=== PATIENT | female | born 1960 | race Caucasian/White ===

== ENCOUNTER 2016-11-14 12:19 | Emergency (ER) | payer BC ==
[2016-11-14] MEDS ORDERED: ONDANSETRON 4 MG/2 ML VIAL IVP STA (14:49)
[2016-11-14] MEDS ORDERED: SODIUM CHLORIDE 0.9% 1,000 ML IV STA (14:49)
[2016-11-14] MEDS ORDERED: SODIUM CHLORIDE 0.9% 500 ML IV STA (14:49)
[2016-11-14] MEDS ORDERED: RX INFO: IV CONTRAST WAS GIVEN 1 EACH MISC MISCELLANE PRN (14:58)
[2016-11-14 15:14] LABS: Basophils # (A) 0.1 k/uL (0-0.2); Basophils % (A) 1 %; CH 28.2; CHCM 34.2; Eosinophils # (A) 0.3 k/uL (0-0.7); Eosinophils % (A) 4 %; HCT 49.8 % (34.0-46.0); HDW 3.19; HGB 16.9 gm/dL (11.4-16.0); Luc # (Auto) 0.23; Luc % (Auto) 3; Lymphocytes # (A) 1.7 k/uL (1.0-4.8); Lymphocytes % (A) 26 %; MCH 28.1 pg (25.0-35.0); MCV 82.6 fL (80.0-100.0); Mean Platelet Volume 7.5; Monocytes # (A) 0.5 k/uL (0-1.0); Monocytes % (A) 7 %; Neutrophils % (A) 59 %; RBC 6.03 m/uL (3.80-5.40); RDW 15.1 % (11.5-15.5); WBC 6.8 k/uL (3.8-10.6); WBC (Perox) 6.48
[2016-11-14 15:15] VITALS: RESP 18
--- NOTE | 2016-11-14 15:38 | ED ---
Nausea/Vomiting/Diarrhea HPI - General Chief complaint: Nausea/Vomiting/Diarrhea Stated complaint: Abd Pain Time Seen by Provider: 11/14/16 14:48 Source: patient, RN notes reviewed Mode of arrival: ambulatory Limitations: no limitations - History of Present Illness Initial comments: 56-year-old female presents emergency Department with chief complaint of diarrhea, nausea and abdominal pain for last 4 days. Patient states progressively getting worse. She states initially when she started she does, felt like she at stomach and she had with bathroom with no changes but now she states that she's having feel episodes of diarrhea daily. States it is worse when she is. States she has diffuse abdominal pain but there is moderate left lower quadrant abdominal pain. Patient denies fever, chills no history of abdominal surgeries other than a . Denies any sick contacts. Patient denies any flank pain no dysuria no hematuria. - Related Data Home Medications Medication Instructions Recorded Confirmed Dapagliflozin/Metformin HCl 1 tab PO DAILY 11/14/16 11/14/16 [Xigduo Xr 10 mg-1,000 mg Tab] Ergocalciferol [Vitamin D2] 50,000 unit PO FR 11/14/16 11/14/16 Levothyroxine Sodium [Synthroid] 50 mcg PO DAILY 11/14/16 11/14/16 Loratadine [Claritin] 10 mg PO DAILY 11/14/16 11/14/16 Allergies Allergy/AdvReac Type Severity Reaction Status Date / Time No Known Allergies Allergy Verified 11/14/16 16:20 Review of Systems ROS Statement: Those systems with pertinent positive or pertinent negative responses have been documented in the HPI. ROS Other: All systems not noted in ROS Statement are negative. Past Medical History Past Medical History: Diabetes Mellitus Additional Past Medical History / Comment(s): thyroid issues History of Any Multi-Drug Resistant Organisms: None Reported Past Surgical History: Section Additional Past Surgical History / Comment(s): cataract, Hand Past Psychological History: No Psychological Hx Reported Smoking Status: Current every day smoker Past Alcohol Use History: None Reported Past Drug Use History: None Reported General Exam Limitations: no limitations General appearance: alert, in no apparent distress Head exam: Present: atraumatic, normocephalic, normal inspection Respiratory exam: Present: normal lung sounds bilaterally. Absent: respiratory distress, wheezes, rales, rhonchi, stridor Cardiovascular Exam: Present: regular rate, normal rhythm, normal heart sounds. Absent: systolic murmur, diastolic murmur, rubs, gallop, clicks GI/Abdominal exam: Present: soft, tenderness (Mild diffuse of mild left lower quadrant tenderness), normal bowel sounds. Absent: distended, guarding, rebound , rigid Back exam: Absent: CVA tenderness (R), CVA tenderness (L) Neurological exam: Present: alert Skin exam: Present: warm, dry, intact, normal color. Absent: rash Course Vital Signs 11/14/16 11/14/16 12:51 15:14 Temperature 99.1 F 97.5 F L Pulse Rate 113 H 84 Respiratory 20 18 Rate Blood Pressure 162/95 137/93 O2 Sat by Pulse 95 100 Oximetry Medical Decision Making - Medical Decision Making 56-year-old female presented for diarrhea, abdominal discomfort. Patient appears to have enteritis patient CT. Patient has bilateral nephrolithiasis and reactive lymph nodes noted. Patient's lab work essentially unremarkable. Patient be discharged. Return parameters were discussed. - Lab Data Result diagrams: 11/14/16 15:00 11/14/16 15:00 Lab Results 11/14/16 11/14/16 11/14/16 Range/Units 15:00 15:00 16:18 WBC 6.8 (3.8-10.6) k/uL RBC 6.03 H (3.80-5.40) m/uL Hgb 16.9 H (11.4-16.0) gm/dL Hct 49.8 H (34.0-46.0) % MCV 82.6 (80.0-100.0) fL MCH 28.1 (25.0-35.0) pg MCHC 34.0 (31.0-37.0) g/dL RDW 15.1 (11.5-15.5) % Plt Count 257 (150-450) k/uL Neutrophils % 59 % Lymphocytes % 26 % Monocytes % 7 % Eosinophils % 4 % Basophils % 1 % Neutrophils # 4.0 (1.3-7.7) k/uL Lymphocytes # 1.7 (1.0-4.8) k/uL Monocytes # 0.5 (0-1.0) k/uL Eosinophils # 0.3 (0-0.7) k/uL Basophils # 0.1 (0-0.2) k/uL Sodium 142 (137-145) mmol/L Potassium 3.8 (3.5-5.1) mmol/L Chloride 108 H (98-107) mmol/L Carbon Dioxide 21 L (22-30) mmol/L Anion Gap 13 mmol/L BUN 19 H (7-17) mg/dL Creatinine 0.90 (0.52-1.04) mg/dL Est GFR (MDRD) Af Amer >60 (>60 ml/min/1.73 sqM) Est GFR (MDRD) Non-Af >60 (>60 ml/min/1.73 sqM) Glucose 108 H (74-99) mg/dL Calcium 9.4 (8.4-10.2) mg/dL Total Bilirubin 0.7 (0.2-1.3) mg/dL AST 44 H (14-36) U/L ALT 55 H (9-52) U/L Alkaline Phosphatase 114 (38-126) U/L Total Protein 7.2 (6.3-8.2) g/dL Albumin 4.3 (3.5-5.0) g/dL Amylase 58 (30-110) U/L Lipase 101 (23-300) U/L Urine Color Yellow Urine Appearance Clear (Clear) Urine pH 5.5 (5.0-8.0) Urine Protein 1+ H (Negative) Urine Glucose (UA) Negative (Negative) Urine Ketones Negative (Negative) Urine Blood Negative (Negative) Urine Nitrite Negative (Negative) Urine Bilirubin Negative (Negative) Urine Urobilinogen <2.0 (<2.0) mg/dL Ur Leukocyte Esterase Negative (Negative) Urine RBC 1 (0-5) /hpf Urine WBC 2 (0-5) /hpf Ur Squamous Epith Cells 1 (0-4) /hpf Urine Bacteria Rare H (None) /hpf Urine Mucus Occasional H (None) /hpf Acetone, Qual Negative (Negative) Disposition Clinical Impression: Enteritis Disposition: HOME SELF-CARE Condition: Stable Instructions: Enteritis (ED) Additional Instructions: Please return to the Emergency Department if symptoms worsen or any other concerns. Referrals: Steve Rivas MD [Primary Care Provider] - 1-2 days Time of Disposition: 16:43
[2016-11-14 15:48] LABS: ALT 55 U/L (9-52); AST 44 U/L (14-36); Alkaline Phosphatase 114 U/L (38-126); Amylase 58 U/L (30-110); Anion Gap 13 mmol/L; Blood Urea Nitrogen 19 mg/dL (7-17); Calcium 9.4 mg/dL (8.4-10.2); Carbon Dioxide 21 mmol/L (22-30); Chloride 108 mmol/L (98-107); Glucose 108 mg/dL (74-99); Non-African American GFR(MDRD) >60 (>60 ml/min/1.73 sqM); Potassium 3.8 mmol/L (3.5-5.1); Sodium 142 mmol/L (137-145); Total Bilirubin 0.7 mg/dL (0.2-1.3); Total Protein 7.2 g/dL (6.3-8.2)
[2016-11-14 16:31] LABS: Appearance,Urine Clear (Clear); Bacteria,Urine Rare /hpf; Bilirubin,Urine Negative (Negative); Glucose,Urine (UA) Negative (Negative); Ketones,Urine Negative (Negative); Leukocyte Esterase,Urine Negative (Negative); Mucus,Urine Occasional /hpf; Nitrite,Urine Negative (Negative); PH, Urine 5.5 (5.0-8.0); Particle Count 3254; Protein,Urine 1+ (Negative); RBC,Urine 1 /hpf (0-5); Squamous Epithelial Cell,Urine 1 /hpf (0-4); UA Billing (MACRO vs. MICRO) MICRO; Urobilinogen,Urine <2.0 mg/dL (<2.0); WBC,Urine 2 /hpf (0-5)
--- NOTE | 2016-11-14 16:38 | CT ---
EXAMINATION TYPE: CT abdomen pelvis w con DATE OF EXAM: 11/14/2016 4:11 PM COMPARISON: NONE HISTORY: 56-year-old female complains of abdominal pain and diarrhea x5 days. TECHNIQUE: Contiguous axial scanning of the abdomen and pelvis following administration of 100 ml Omn ipaque 300 IV contrast. Delayed images through the kidneys and coronal/sagittal reconstructions perf ormed. CT DLP: 931.5 mGycm Automated exposure control for dose reduction was used. FINDINGS: The heart is normal size without pericardial effusion. Strandy atelectasis at the right base without pleural effusion. Liver enlarged measuring 19.4 cm craniocaudal. There appears to be low attenuation suggesting fatty i nfiltration. Portal venous system is patent. No biliary ductal dilatation. Gallbladder, adrenal glands, spleen, and pancreas within normal limits. 5 mm nonobstructive calculus upper to mid pole right kidney and 2 mm nonobstructive calculus lower po le left kidney. There is also an exophytic 6.7 cm cyst from the left lower pole. Moderate atherosclerotic calcifications within the abdominal aorta and iliac arteries. A few scattered borderline to mildly enlarged mesenteric lymph nodes are present measuring up to 7 mm , coronal image 40. Some scattered prominent fluid within lower abdominal and pelvic small bowel loop s and liquid stool within the colon. Normal appendix. No pericolonic inflammatory change. Bladder partially distended. Uterus and ovaries are visualized. No abnormal fluid collection in the p isabela or pelvic lymphadenopathy. Bones: Degenerative changes of both hips. No osseous destructive process. IMPRESSION: 1. PROMINENT FLUID-FILLED SMALL BOWEL LOOPS IN THE LOWER ABDOMEN AND PELVIS WITH LIQUID STOOL THROUGH OUT THE COLON. CORRELATE FOR ENTERITIS. 2. SCATTERED NONENLARGED AND MILDLY ENLARGED MESENTERIC LYMPH NODES MEASURE UP TO 7 MM AND ARE LIKELY REACTIVE. 3. BILATERAL NEPHROLITHIASIS MEASURING UP TO 5 MM. ALSO, LARGE 6.7 CM CYST LOWER POLE LEFT KIDNEY. 4. HEPATOMEGALY AND SUSPECTED HEPATIC STEATOSIS.
[2016-11-14 16:47] LABS: Specific Gravity,Urine 1.049 (1.001-1.035)
[2016-11-14 16:58] VITALS: BP 141/76; PULSE 69; TEMP 98
== END 2016-11-14 17:00 | disposition home or self-care (01) ==
LOC: EC 12:19
DX: K52.9 Noninfective gastroenteritis and colitis, unspecified (principal); N20.0 Calculus of kidney; R11.0 Nausea; E11.9 Type 2 diabetes mellitus without complications; F17.200 Nicotine dependence, unspecified, uncomplicated; Z79.84 Long term (current) use of oral hypoglycemic drugs; Z79.899 Other long term (current) drug therapy; Z86.39 Personal history of other endocrine, nutritional and metabolic disease
CPT/HCPCS: 99284; 96374; 96361; 36415; 80053; 82150; 82009; 83690; 85025; 81001; 74177; J2405; Q9967

== ENCOUNTER → 2020-03-21 | Outpatient (CLI) | payer BC ==
--- NOTE | 2020-03-21 22:15 | MR ---
EXAMINATION TYPE: MR fanine/brianneine wo con DATE OF EXAM: 03/21/2020 COMPARISON: None HISTORY: Chronic neck and mid back pain CONTRAST: Performed utilizing 0 mL intravenous Gadavist gadolinium contrast. TECHNIQUE: Multiplanar multiecho imaging on a 3.0 Margi magnet is performed through the cervical spin e. FINDINGS: The craniovertebral junction is normal. Vertebral body alignment is normal. C7-T1: No focal disc herniation or significant disc bulge is evident. No spinal canal stenosis or n eural foraminal stenosis is present. C6-7: There is a moderate left paracentral disc herniation with moderate anterior thecal sac compress ion. Cord contact and some cord deformity is evident. No signal abnormality is evident.. C5-6: No focal disc herniation or significant disc bulge is evident. No spinal canal stenosis or martina ral foraminal stenosis is present. C4-5: No focal disc herniation or significant disc bulge is evident. No spinal canal stenosis or martina ral foraminal stenosis is present. C3-4: No focal disc herniation or significant disc bulge is evident. No spinal canal stenosis or martina ral foraminal stenosis is present. C2-3: No focal disc herniation or significant disc bulge is evident. No spinal canal stenosis or martina ral foraminal stenosis is present. IMPRESSIONS: 1. Left paracentral disc herniation with cord contact C6-7. EXAMINATION TYPE: MR casey/marta wo con DATE OF EXAM: 03/21/2020 COMPARISON: None HISTORY: Chronic neck and mid back pain CONTRAST: Performed utilizing 0 mL intravenous Gadavist gadolinium contrast. TECHNIQUE: Multiplanar, multiecho imaging on a 3.0 Margi magnet is performed through the thoracic spi ne. Spinal cord maintains normal signal through its visualized course. There is exaggeration of thoracic kyphosis centered at approximately T6-T7. Vertebral body heights are preserved. Disc heights are preserved. There is disc desiccation present. T6-7: Right paracentral disc bulge has moderate anterior thecal sac compression. Cord deformity is pr esent. Cord contact is not identified. No spinal canal stenosis is present. T7-8: There is a moderate size central disc herniation with moderate anterior thecal sac compression. Cord deformity is present although no cord contact is evident at this time. No AP spinal canal steno sis present. T12-L1: Small central protrusion is present with mild anterior thecal sac compression. No cord contac t is evident. No spinal canal stenosis is evident. IMPRESSIONS: 1. Moderate size central disc herniation T7-8 with cord deformity. 2. Right paracentral disc bulging C6-7 with mild anterior thecal sac compression and mild cord deform ity
== END | disposition home or self-care (01) ==
LOC: RADMRIMAIN 19:27
PROVIDERS: ATTEND Family Medicine
DX: M50.223 Other cervical disc displacement at C6-C7 level (principal); M51.24 Other intervertebral disc displacement, thoracic region; G95.29 Other cord compression
CPT/HCPCS: 72141; 72146

== ENCOUNTER → 2023-02-06 | Outpatient (CLI) | payer BC ==
--- NOTE | 2023-02-08 16:33 | MR ---
EXAMINATION TYPE: MR lspine/sacrum wo con DATE OF EXAM: 02/06/2023 3:26 PM COMPARISON: CT 11/14/2016. CLINICAL INDICATION: Female, 62 years old with history of M54.50 M54.16; Severe low back pain and ti ngling into legs to feet, mostly left side TECHNIQUE: Multi planar, multi sequence imaging was performed utilizing: T1-weighted, T2-weighted, a nd turbo inversion recovery imaging of the lumbar spine and sacrum. IV Contrast: cc . None. FINDINGS: Alignment: The lumbar vertebral bodies have preserved heights and alignment. Cord: The conus medullaris and the distal spinal cord appear unremarkable with regards to their signa l intensity and morphology. Bones/Discs: Bone signal is within normal limits. No abnormal bony edema on inversion recovery sequen laly. Multilevel disc degenerative is noted and most pronounced at the . Intervertebral disc signal is maintained. T12-L1: No evidence of significant spinal canal stenosis or neural foraminal stenosis. L1-L2: No evidence of significant spinal canal stenosis or neural foraminal stenosis. L2-L3: Disc bulge and facet joint arthropathy result in mild spinal canal and mild bilateral neural f oraminal stenosis. L3-L4: Disc bulge and facet joint arthropathy result in mild spinal canal and mild bilateral neural f oraminal stenosis. L4-L5: Disc bulge and facet joint arthropathy result in mild spinal canal and mild bilateral neural f oraminal stenosis. L5-S1: Left foraminal disc protrusion without significant spinal canal stenosis. This closely approxi mates the exiting S1-S2 nerve (series 401 image 7). Facet joint arthropathy present with bilateral ne ural foraminal stenosis. Osteophyte in the extraforaminal region closely approximates and displaces t he left exiting nerve series 701 image 3. Sacrum: No abnormal bony signal involving the sacrum. No abnormal inversion recovery sequence signal. Minimal degeneration changes of the bilateral sacroiliac joints. No significant spinal canal or neural foraminal stenosis in the remainder of the visualized levels. Other findings: Possible Lynette duct cyst partially visualized anterior abdominal wall measuring 15 x 9 mm. scar thought to be present in the anterior lower uterine segment. Partially visual ized left renal cyst which is slightly complex. Findings similar to prior in 2017. IMPRESSION: 1. L5-S1 left foraminal disc protrusion which closely approximates the exiting S1/S2 nerve and could correlate with patient's symptoms. 2. L5-S1 left foraminal osteophyte displaces the exiting L5-S1 nerve. 3. Mild sacroiliac joint degeneration changes. No evidence for fracture. 4. Possible Lynette duct cyst partially visualized anterior abdominal wall measuring 15 x 9 mm.
== END | disposition home or self-care (01) ==
LOC: RADMRIMAIN 14:20
PROVIDERS: ATTEND Family Medicine
DX: M51.16 Intervertebral disc disorders with radiculopathy, lumbar region (principal); M53.3 Sacrococcygeal disorders, not elsewhere classified; M25.78 Osteophyte, vertebrae
CPT/HCPCS: 72148; 72195

== ENCOUNTER 2023-05-04 11:55 | Inpatient (IN) | payer BC ==
[2023-05-04 16:55] LABS: Glucose,Whole Blood 118 mg/dL (70-110)
[2023-05-04 17:37] LABS: Basophils % (A) 0 %; Eosinophils # (A) 0.1 k/uL (0-0.7); Eosinophils % (A) 2 %; HCT 39.2 % (34.0-46.0); HGB 13.1 gm/dL (11.4-16.0); Lymphocytes # (A) 1.9 k/uL (1.0-4.8); Lymphocytes % (A) 23 %; MCH 29.7 pg (25.0-35.0); MCHC 33.5 g/dL (31.0-37.0); MCV 88.5 fL (80.0-100.0); Mean Platelet Volume 8.6; Monocytes # (A) 0.4 k/uL (0-1.0); Monocytes % (A) 5 %; Neutrophils # (A) 5.7 k/uL (1.3-7.7); Neutrophils % (A) 69 %; Platelet Count 201 k/uL (150-450); RBC 4.43 m/uL (3.80-5.40); RDW 15.8 % (11.5-15.5); WBC 8.2 k/uL (3.8-10.6)
[2023-05-04 17:57] LABS: African American GFR (CKD) >90 (>60 ml/min/1.73 sqM); Anion Gap 8 mmol/L; Blood Urea Nitrogen 9 mg/dL (7-17); Carbon Dioxide 23 mmol/L (22-30); Chloride 109 mmol/L (98-107); Glucose 103 mg/dL (74-99); Magnesium 1.5 mg/dL (1.6-2.3); Non-African American GFR(CKD) >90 (>60 ml/min/1.73 sqM); Potassium 3.5 mmol/L (3.5-5.1); Sodium 140 mmol/L (137-145)
[2023-05-04 17:58] LABS: Partial Thromboplastin Time 42.6 sec (22.0-30.0)
[2023-05-04] MEDS ORDERED: HEPARIN SODIUM 1,000 UN/ML (10ML VL) IV PRN (18:35)
[2023-05-04] MEDS ORDERED: MAGNESIUM SULFATE-D5W PMX 1 GM in DEXTROSE/WATER 1 100ML.BAG IVPB ONE (18:46)
[2023-05-04] MEDS ORDERED: Magnesium Replacement Protocol 1 EACH MISC MISCELLANE PRN (18:46)
[2023-05-04 20:14] LABS: Glucose,Whole Blood 171 mg/dL (70-110)
[2023-05-04] MEDS: SODIUM CHLORIDE 0.9% 1,000 ML IV SCH (20:32)
[2023-05-04] MEDS: HEPARIN SOD,PORK IN 0.45% NACL 25,000 UNIT in 0.45% NACL 1 250ML.BAG IV SCH (20:32)
[2023-05-04] MEDS: METOPROLOL TARTRATE 50 MG TAB PO SCH (20:34)
[2023-05-04] MEDS: MONTELUKAST 10 MG TAB PO SCH (20:34)
[2023-05-04] MEDS: INSULIN ASPART (NovoLOG) 100 UNIT/ML VIAL SQ SCH (20:34)
[2023-05-05 03:29] LABS: Basophils % (A) 0 %; Eosinophils # (A) 0.2 k/uL (0-0.7); Eosinophils % (A) 2 %; HCT 38.1 % (34.0-46.0); HGB 12.8 gm/dL (11.4-16.0); Lymphocytes # (A) 1.7 k/uL (1.0-4.8); Lymphocytes % (A) 21 %; MCH 29.4 pg (25.0-35.0); MCHC 33.5 g/dL (31.0-37.0); MCV 87.8 fL (80.0-100.0); Mean Platelet Volume 9.2; Monocytes # (A) 0.4 k/uL (0-1.0); Monocytes % (A) 5 %; Neutrophils # (A) 5.8 k/uL (1.3-7.7); Neutrophils % (A) 72 %; Platelet Count 177 k/uL (150-450); RBC 4.34 m/uL (3.80-5.40); RDW 15.8 % (11.5-15.5); WBC 8.1 k/uL (3.8-10.6)
[2023-05-05 03:37] LABS: African American GFR (CKD) >90 (>60 ml/min/1.73 sqM); Anion Gap 7 mmol/L; Blood Urea Nitrogen 8 mg/dL (7-17); Calcium 7.1 mg/dL (8.4-10.2); Carbon Dioxide 23 mmol/L (22-30); Chloride 110 mmol/L (98-107); Glucose 121 mg/dL (74-99); Magnesium 1.9 mg/dL (1.6-2.3); Non-African American GFR(CKD) >90 (>60 ml/min/1.73 sqM); Potassium 3.5 mmol/L (3.5-5.1); Sodium 140 mmol/L (137-145)
[2023-05-05 03:48] LABS: INR 0.9 (<1.2); Partial Thromboplastin Time 28.7 sec (22.0-30.0); Prothrombin Time 10.4 sec (10.0-12.5)
[2023-05-05] MEDS ORDERED: NICOTINE GUM (POLACRILEX) 2 MG GUM BUCCAL PRN (04:09)
[2023-05-05] MEDS ORDERED: NICOTINE 21MG/24HR PATCH TRANSDERM STA (04:09)
[2023-05-05] MEDS: LEVOTHYROXINE 50 MCG TAB PO SCH (04:31)
[2023-05-05 06:11] LABS: Glucose,Whole Blood 148 mg/dL (70-110)
[2023-05-05] MEDS: INSULIN ASPART (NovoLOG) 100 UNIT/ML VIAL SQ SCH ×4 (06:28→22:59)
[2023-05-05] MEDS: FAMOTIDINE 20 MG TAB PO SCH (08:32)
[2023-05-05] MEDS: ATORVASTATIN 20 MG TAB PO SCH (08:32)
[2023-05-05] MEDS: ASPIRIN 81 MG PO SCH (08:32)
[2023-05-05] MEDS: MAGNESIUM OXIDE 400 MG TAB PO SCH (08:33)
[2023-05-05] MEDS: METOPROLOL TARTRATE 50 MG TAB PO SCH ×2 (08:33→21:19)
--- NOTE | 2023-05-05 09:55 | US ---
EXAMINATION TYPE: Pre-Operative Non-Invasive Evaluation of the hand for Potential Radial Artery Anaid lee, Measurements only DATE OF EXAM: 05/05/2023 9:42 AM CLINICAL INDICATION: Female, 62 years old with history of Pre-Op Cardiac Surgery; Pre-OP CABG SIDE PERFORMED: Left TECHNIQUE: Radial artery is measured utilizing real time linear array sonography. Dominant hand: Right Duplex Findings: Radial Artery: Color flow seen Measurements in mm, transverse view: Left Radial: Proximal: 2.8 x 2.5 mm Mid: 2.4 x 2.4 mm Distal: 2.4 x 2.6 mm IMPRESSION: 1. Left Radial measurements listed above. 2. Performing surgeon to determine viability as conduit.
--- NOTE | 2023-05-05 09:55 | US ---
EXAMINATION TYPE: US vein mapping BILAT DATE OF EXAM: 05/05/2023 9:42 AM COMPARISON: NONE CLINICAL INDICATION: Female, 62 years old with history of PreOp Cardiac Surgery; Pre-OP CABG SIDE PERFORMED: Bilateral TECHNIQUE: Lower extremity saphenous vein is examined and measured utilizing real time linear array sonography. Patient History: Smoker: Yes Heart Disease: Yes Previous DVT: No Vascular Surgery: No Discoloration: No Paralysis: No Edema: No DUPLEX FINDINGS: Greater Saphenous: Color flow seen Measurements in mm: Right Greater Saphenous: Groin: 6.0 x 6.0 mm High Thigh: 4.4 x 4.6 mm Mid Thigh: 3.8 x 3.7 mm Above Knee: 4.3 x 4.5 mm Knee: 4.2 x 4.2 mm Below Knee: 3.9 x 3.8 mm Mid Calf: 2.6 x 2.2 mm At Ankle: 2.8 x 2.9 mm Left Greater Saphenous: Groin: 7.3 x 7.8 mm High Thigh: 4.7 x 4.4 mm Mid Thigh: 4.1 x 4.5 mm Above Knee: 4.1 x 4.4 mm Knee: 4.1 x 3.8 mm Below Knee: 4.1 x 3.5 mm Mid Calf: 2.9 x 2.3 mm At Ankle: 3.2 x 3.9 mm IMPRESSION: 1. Bilateral GSV measurements listed above. 2. Performing surgeon to determine viability as conduit.
--- NOTE | 2023-05-05 09:57 | US ---
EXAMINATION TYPE: US carotid duplex BILAT DATE OF EXAM: 05/05/2023 COMPARISON: NONE CLINICAL INDICATION: Female, 62 years old with history of Pre-Op Cardiac Surgery; Pre-OP CABG TECHNIQUE: Carotid duplex ultrasound examination. Indirect Doppler criteria was utilized. FINDINGS: EXAM MEASUREMENTS: RIGHT: Peak Systolic Velocity (PSV) cm/sec ----- Right CCA: 80.1 ----- Right ICA: 127.4 ----- Right ECA: 96.8 ICA/CCA ratio: 1.6 RIGHT: End Diastole cm/sec ----- Right CCA: 26.3 ----- Right ICA: 56.4 ----- Right ECA: 17.6 LEFT: Peak Systolic Velocity (PSV) cm/sec ----- Left CCA: 58.4 ----- Left ICA: 143.7 ----- Left ECA: 111.3 ICA/CCA ratio: 2.5 LEFT: End Diastole cm/sec ----- Left CCA: 19.1 ----- Left ICA: 47.1 ----- Left ECA: 19.2 VERTEBRALS (direction of flow): Right Vertebral: Antegrade Left Vertebral: Antegrade Rhythm: Normal BRAKE HOLDER NOTES: Slightly elevated velocities bilateral distal ICA's, otherwise appeared wnl IMPRESSION: 1. Approximately 50-69% stenosis of the origin of the left internal carotid artery. 2. Less than 50% stenosis of the origin of the right internal carotid artery. Criteria for Assigning % of Stenosis / Diameter reduction (Estimation based on the indirect measurements of the internal carotid artery velocities (ICA PSV). 1. Normal (no stenosis)=ICA PSV < 125 cm/s: ratio < 2.0: ICA EDV<40 cm/s. 2. Less than 50% stenosis=ICA PSV < 125 cm/s: ratio < 2.0: ICA EDV<40 cm/s. 3. 50 to 69% stenosis=ICA PSV of 125 to 230 cm/s: ration 2.0 ? 4.0: ICA EDV 40-100 cm/s. 4. Greater than 70% stenosis to near occlusion= ICA PSV > 230 cm/s: ratio > 4.0: ICA EDV > 100 cm/s. 5. Near occlusion= ICA PSV velocities may be low or undetectable: variable ratio and ICA EDV. 6. Total occlusion=unable to detect flow.
--- NOTE | 2023-05-05 10:52 | P.GSCN ---
History of Present Illness Consult date: 05/05/23 Reason for Consult: Coronary artery disease, non-ST elevated myocardial infarction this admission, evaluation for myocardial revascularization surgery Requesting physician: Inez Patiño History of present illness: This is a 62-year-old female patient who follows on an outpatient basis with Dr. Holden Fitzgerald's office for her primary care service. She has a past medical history significant for hypertension, hyperlipidemia, diabetes mellitus type 2, asthma, obesity with a BMI of 32.2 kg/m, hypothyroid, chronic back pain, family history of early onset coronary artery disease with her mom having a myocardial infarction in her 30s, and chronic ongoing nicotine dependence smoking about one and half pack of cigarettes per day. On 05/04/2023 the patient presented to the emergency department at [facility] with complaints of substernal chest pain with radiating pain to her neck and to her left arm. She denies any recent shortness of breath, nausea, vomiting, fever, chills, palpitations, heada catherine, lightheadedness, constipation, diarrhea, visual disturbances, presyncope or syncope. She reports she woke up from sleep around 12:30 AM with an acute onset of chest pain. On admission to [facility] a 12-lead EKG was completed and she found to be in atrial fibrillation with RVR with a heart rate in the 140s. Initial laboratory results at [facility] showed a WBC count of 13.7, hemoglobin 15.1, hematocrit 44.7, platelets 261, sodium 142, potassium 3.6, chloride 107, BUN 10.0, creatinine 0.77, glucose 121, calcium 6.7, magnesium 1.53, hemoglobin A1c 7.3%, proBNP 160, and a positive serial troponins ruling her in for a non-ST elevated myocardial infarction. The patient also underwent a CTA of her chest to rule out pulmonary embolism which showed no evidence of pulmonary embolism or acute thoracic process. A chest x- ray was also completed which showed no acute cardiopulmonary process. Subsequently, due to the patient's presenting symptoms and elevated troponins a consult was placed to cardiology and the patient was subsequently taken for a cardiac catheterization. The cardiac catheterization demonstrated left main coronary artery to be patent, a 40-50% stenosis to her mid left anterior descending coronary, a small diagonal branch #1 with a 80-90% stenosis, a 30-40% stenosis to the mid segment of her right coronary artery and a 90% stenosis to the proximal PDA coronary artery. For further evaluation the patient underwent a transthoracic 2-D echocardiogram which demonstrated a normal left ventricular size, mild concentric left ventricular hypertrophy, a left ventricular systolic function to be normal with an ejection fraction greater than 55%, mild mitral valve regurgitation, mild tricuspid valve regurgitation, and fat pericardial versus pericardial effusion. Subsequently, due to the findings on the cardiac catheterization a consult was placed to Dr. Daniel from cardiothoracic surgery for further evaluation and treatment recommendations including myocardial revascularization surgery. Review of Systems A 14 point review of systems was completed and was negative except as mentioned in the HPI. Past Medical History Past Medical History: Atrial Fibrillation, Asthma, Coronary Artery Disease (CAD), Chest Pain / Angina, Diabetes Mellitus, Hyperlipidemia, Hypertension, Thyroid Disorder Additional Past Medical History / Comment(s): Newly diagnosed paroxysmal atrial fibrillation History of Any Multi-Drug Resistant Organisms: None Reported Past Surgical History: Section, Heart Catheterization Additional Past Surgical History / Comment(s): cataract surgery bilateral eyes, left Hand surgery, heart cath 05/04/23 Past Anesthesia/Blood Transfusion Reactions: No Reported Reaction Past Psychological History: No Psychological Hx Reported Smoking Status: Current every day smoker (Smokes 1-1/2 packs per day of cigarettes) Past Alcohol Use History: None Reported Past Drug Use History: None Reported - Past Family History Mother Family Medical History: Myocardial Infarction ([place]) (Had a myocardial infarction in her 30s) Father Family Medical History: Diabetes Mellitus, Myocardial Infarction ([place]) Medications and Allergies Home Medications Medication Instructions Recorded Confirmed Type Dapagliflozin/Metformin HCl 1 tab PO DAILY 11/14/16 05/04/23 History [Xigduo Xr 10 mg-1,000 mg Tab] Levothyroxine Sodium [Synthroid] 50 mcg PO DAILY 11/14/16 05/04/23 History Loratadine [Claritin] 10 mg PO DAILY 11/14/16 05/04/23 History Albuterol Inhaler [Ventolin Hfa 1 - 2 puff INHALATION RT-Q6H PRN 05/04/23 05/04/23 History Inhaler] Atorvastatin [Lipitor] 20 mg PO DAILY 05/04/23 05/04/23 History Budesonide/Glycopyr/Formoterol 1 puff INHALATION RT-BID PRN 05/04/23 05/04/23 History [Breztri Aerosphere Inhaler] Magnesium 250 mg PO DAILY 05/04/23 05/04/23 History Montelukast [Singulair] 10 mg PO DAILY 05/04/23 05/04/23 History Semaglutide [Ozempic] 0.5 mg SQ IBRAHIM 05/04/23 05/04/23 History Semaglutide [Ozempic] 1 mg SQ DIRECTED 05/04/23 05/04/23 History Valsartan/Hydrochlorothiazide 1 tab PO DAILY 05/04/23 05/04/23 History [Valsartan-Hctz 320-12.5 mg Tab] Allergies Allergy/AdvReac Type Severity Reaction Status Date / Time No Known Allergies Allergy Verified 05/04/23 17:38 Surgical - Exam Vital Signs Temp Pulse Resp BP Pulse Ox 97.7 F 74 18 100/63 96 05/04/23 17:00 05/04/23 17:00 05/04/23 17:00 05/04/23 17:00 05/04/23 17:00 - General well developed, well nourished, no distress, no pain, chronically ill, obese - Eyes PERRL, normal ocular movement, no pale, no icteric - ENT normal pinna, normal nares, normal mucosa, no hearing loss, no congestion - Neck Neck is supple, no lymphadenopathy. no masses, no bruits, trachea midline, no venous distension - Respiratory Lung sounds essentially clear throughout, no wheezes, rhonchi or crackles. Respirations are symmetrical and nonlabored. Oxygen saturation is 97% on 2 L nasal cannula. - Cardiovascular Regular rhythm and rate. S1 and S2 present, negative for S3, gallop or murmur. No edema present. Peripheral pulses palpable. - Abdomen Abdomen is soft, nontender and nondistended. Active bowel sounds present in all 4 abdominal quadrants. No guarding or rigidity. No organomegaly appreciated. - Genitourinary Deferred - Rectum Deferred - Integumentary Skin is warm and dry. No clubbing or cyanosis is present. no rash, no growths, no abnormal pigmentation - Neurologic Cranial nerves II through XII intact. No focal deficits. - Musculoskeletal Moves all 4 extremities with equal strength bilateral. normal gait, normal posture - Psychiatric oriented to time, oriented to person, oriented to place, speech is normal, memory intact Results - Labs 05/05/23 03:07 05/05/23 11:21 Abnormal Lab Results - Last 24 Hours (Table) 05/04/23 05/04/23 05/04/23 Range/Units 16:52 17:20 17:20 RDW 15.8 H (11.5-15.5) % APTT 42.6 H (22.0-30.0) sec Chloride (98-107) mmol/L Glucose (74-99) mg/dL POC Glucose (mg/dL) 118 H (70-110) mg/dL Calcium (8.4-10.2) mg/dL Magnesium (1.6-2.3) mg/dL 05/04/23 05/04/23 05/05/23 Range/Units 17:20 20:12 03:07 RDW 15.8 H (11.5-15.5) % APTT (22.0-30.0) sec Chloride 109 H (98-107) mmol/L Glucose 103 H (74-99) mg/dL POC Glucose (mg/dL) 171 H (70-110) mg/dL Calcium 7.0 L (8.4-10.2) mg/dL Magnesium 1.5 L (1.6-2.3) mg/dL 05/05/23 05/05/23 Range/Units 03:07 06:10 RDW (11.5-15.5) % APTT (22.0-30.0) sec Chloride 110 H (98-107) mmol/L Glucose 121 H (74-99) mg/dL POC Glucose (mg/dL) 148 H (70-110) mg/dL Calcium 7.1 L (8.4-10.2) mg/dL Magnesium (1.6-2.3) mg/dL Diabetes panel 05/04/23 05/05/23 Range/Units 17:20 03:07 Sodium 140 140 (137-145) mmol/L Potassium 3.5 3.5 (3.5-5.1) mmol/L Chloride 109 H 110 H (98-107) mmol/L Carbon Dioxide 23 23 (22-30) mmol/L BUN 9 8 (7-17) mg/dL Creatinine 0.57 0.58 (0.52-1.04) mg/dL Glucose 103 H 121 H (74-99) mg/dL Calcium 7.0 L 7.1 L (8.4-10.2) mg/dL Calcium panel 05/04/23 05/05/23 Range/Units 17:20 03:07 Calcium 7.0 L 7.1 L (8.4-10.2) mg/dL Pituitary panel 05/04/23 05/05/23 Range/Units 17:20 03:07 Sodium 140 140 (137-145) mmol/L Potassium 3.5 3.5 (3.5-5.1) mmol/L Chloride 109 H 110 H (98-107) mmol/L Carbon Dioxide 23 23 (22-30) mmol/L BUN 9 8 (7-17) mg/dL Creatinine 0.57 0.58 (0.52-1.04) mg/dL Glucose 103 H 121 H (74-99) mg/dL Calcium 7.0 L 7.1 L (8.4-10.2) mg/dL Adrenal panel 05/04/23 05/05/23 Range/Units 17:20 03:07 Sodium 140 140 (137-145) mmol/L Potassium 3.5 3.5 (3.5-5.1) mmol/L Chloride 109 H 110 H (98-107) mmol/L Carbon Dioxide 23 23 (22-30) mmol/L BUN 9 8 (7-17) mg/dL Creatinine 0.57 0.58 (0.52-1.04) mg/dL Glucose 103 H 121 H (74-99) mg/dL Calcium 7.0 L 7.1 L (8.4-10.2) mg/dL - Imaging Chest x-ray: report reviewed, image reviewed CT scan - chest: report reviewed, image reviewed Additional studies: Cardiac catheterization results and transthoracic 2-D echocardiogram results reviewed Assessment and Plan Assessment: Coronary artery disease Non-ST elevated myocardial infarction this admission with elevated troponins Hypertension Hyperlipidemia Diabetes mellitus type 2 Hypothyroid Chronic ongoing tobacco dependence Chronic back pain Family history of early onset coronary artery disease with her mom having a myocardial infarction in her 30s Obesity with a BMI of 32.2 kg/m Plan: The patient was seen and examined at her bedside on the third floor cardiac stepdown unit. Her chart and diagnostics were reviewed. Her case was discussed in detail with Dr. Dk Daniel from cardiothoracic surgery. Preoperative testing and preoperative teaching has been initiated. The usual course of myocardial revascularization was discussed with the patient in detail. Continue to optimize medical management with aspirin, statin and beta daniel. Heparin drip management per cardiology recommendations. Once the patient's preoperative testing has been obtained an STS risk score will be calculated in discussed with the patient. A 5 m walk test was completed with the patient, Time 1: 1.86 seconds, Time 2: 1.73 seconds, Time 3: 2.08 seconds, denies any complaints of shortness of breath or chest pain/pressure at this time. Medical management other comorbidities per primary care service and cardiology. More recommendations to follow based on patient's clinical course and as her preoperative testing has been obtained. Thank you for this consult and we look forward to working with you in the care of this patient. I have personally seen and examined the patient, performed the documentation and the assessment and plan as written. 30 minutes spent on the visit . Les OLIVAS Attending Addendum: Pt seen and evaluated with NUCLEAR POWER REACTOR OPERATOR above. Agree with his assessment and plan. This is a 62 year-old female with a hx of DM, HTN, HLD, Hypothy who presented to [facility] with chest pain. She was diagnosed with NSTEMI and coronary cath was diagnostic of significant left main, LAD and proximal PDA disease. Echo reveals EF 55%. CABG is recommended and will plan for surgery on . I spent 45 minutes reviewing the data and discussing the plan of care with the patient and care team. Time with Patient: Greater than 30
[2023-05-05 11:18] LABS: Glucose,Whole Blood 129 mg/dL (70-110)
[2023-05-05 12:11] LABS: ALT 40 U/L (4-34); AST 43 U/L (14-36); African American GFR (CKD) >90 (>60 ml/min/1.73 sqM); Albumin 3.4 g/dL (3.5-5.0); Alkaline Phosphatase 103 U/L (38-126); Anion Gap 6 mmol/L; Blood Urea Nitrogen 8 mg/dL (7-17); Calcium 7.7 mg/dL (8.4-10.2); Carbon Dioxide 24 mmol/L (22-30); Chloride 110 mmol/L (98-107); Glucose 120 mg/dL (74-99); Non-African American GFR(CKD) >90 (>60 ml/min/1.73 sqM); Potassium 3.8 mmol/L (3.5-5.1); Sodium 140 mmol/L (137-145); Total Bilirubin 0.8 mg/dL (0.2-1.3); Total Protein 5.8 g/dL (6.3-8.2)
--- NOTE | 2023-05-05 14:25 | US ---
EXAMINATION TYPE: US arterial LE single level DATE OF EXAM: 05/05/2023 1:55 PM CLINICAL INDICATION: Female, 62 years old with history of Ankle Brachial Index (LANEY) ; PreOp. History of: Smoker: Current Smoker Hypertension: Takes medication Diabetic: Yes Hyperlipidemia: Yes TIA/CVA: No Previous Vascular Surgery: No CAD: Yes Vascular Ulcers: No Claudication: No Gangrene: No Doppler Waveforms: Right: Multiphasic Left: Multiphasic Right Brachial Pressure: 129 Left Brachial Pressure: Deferred Ankle-Brachial Indices: Right: 0.9 Left: 1.1 Toe Brachial Indices: Right: 0.9 Left: 0.9 IMPRESSION: Borderline abnormal right ankle brachial index. Normal left ankle-brachial index.
--- NOTE | 2023-05-05 14:48 | P.HPIM ---
History of Present Illness H&P Date: 05/05/23 Patient endorsed to [facility] at 8:44AM on 05/05. 62-year-old female with PMH of diabetes mellitus, hypertension, dyslipidemia, hypothyroidism presented to [facility] for chest pain that started Thursday night around 12:30AM. Chest pain described as pressure like, radiating to the bilateral jaws. Cardiac cath showed 90% stenosis of her proximal left anterior descending artery, 40-50% stenosis to her mid left anterior descending coronary, a small diagonal branch #1 with a 80-90% stenosis, a 30-40% stenosis to the mid segment of her right coronary artery and a 90% stenosis to the proximal PDA coronary artery. She was transferred to [facility] for NSTEMI and Cardiothoracic surgery evaluation for CABG. She reports smoking 1 pack of cigarettes daily since 17 years old. She currently denies any chest pain. She is quite anxious about her upcoming surgery. No other complaints. CBC shows RDW 15.8. APTT 31.9. CMP shows Cl 110, glucose 120, Ca 7.7, AST 43, ALT 40. TSH 1.83. Currently workup done at [facility] includes: Vein mapping US. Carotid doppler shows 50-69% stenosis left ICA, < 50% right ICA. LANEY shows borderline abnormal right LANEY, normal left LANEY. Pertinent positives and negatives as discussed in HPI, a complete review of systems was performed and all other systems are negative. General: non toxic, no distress, appears at stated age Derm: warm, dry Head: atraumatic, normocephalic, symmetric Eyes: EOMI, no lid lag, anicteric sclera Mouth: no lip lesion, mucus membranes moist Cardiovascular: S1S2 reg, no murmur Lungs: CTA bilateral, no rhonchi, no rales , no accessory muscle use Ext: no gross muscle atrophy, no edema, no contractures Neuro: no focal neuro deficits Psych: Alert, oriented, appropriate affect NSTEMI Transaminitis Hypomagnesemia Hypocalcemia Chronic conditions: diabetes mellitus, hypertension, dyslipidemia, hypothyroidi sm Based on my assessment of this patient, this patient meets a high complexity level of care. Patient has an acute diagnosis of NSTEMI that poses a threat to life or bodily function. Plans for CABG planned for . NSTEMI: ASA 81 mg PO QD. Lipitor 20 mg PO QD. Heparin drip at 11.77 units/kg/hr. Metoprolol 50 mg PO BID. Telemetry monitoring. Cardiology and CT surgery consulted. Transaminitis: Mild elevation. Likley hepatic steotosis. Nonobstructive. Hepatic panel ordered. Hypomagnesemia: Given 1 g Mag sulfate IV. Resolved. Replace via protocol. Hypocalcemia: Monitor. I have reviewed the following bmw sales consultant notes: Cardiothoracic surgery note. I have reviewed the results of the following tests: CBC, CMP, Mag, LANEY, Carotid doppler. I have ordered the following tests: I have discussed the care of this patient with the following independent historian: I have independently interpreted the following test below: I have discussed the management of this patient with the following physician: Discussed with Maximilian العلي at bedside. Past Medical History Past Medical History: Atrial Fibrillation, Diabetes Mellitus, Thyroid Disorder Additional Past Medical History / Comment(s): thyroid issues, a-fib new today, History of Any Multi-Drug Resistant Organisms: None Reported Past Surgical History: Section, Heart Catheterization Additional Past Surgical History / Comment(s): cataract, Hand, heart cath 05/04/23 Past Psychological History: No Psychological Hx Reported Smoking Status: Current every day smoker Past Alcohol Use History: None Reported Past Drug Use History: None Reported - Past Family History Mother Family Medical History: Myocardial Infarction ([place]) (Had a myocardial infarction in her 30s) Father Family Medical History: Diabetes Mellitus, Myocardial Infarction ([place]) Medications and Allergies Home Medications Medication Instructions Recorded Confirmed Type Dapagliflozin/Metformin HCl 1 tab PO DAILY 11/14/16 05/04/23 History [Xigduo Xr 10 mg-1,000 mg Tab] Levothyroxine Sodium [Synthroid] 50 mcg PO DAILY 11/14/16 05/04/23 History Loratadine [Claritin] 10 mg PO DAILY 11/14/16 05/04/23 History Albuterol Inhaler [Ventolin Hfa 1 - 2 puff INHALATION RT-Q6H PRN 05/04/23 05/04/23 History Inhaler] Atorvastatin [Lipitor] 20 mg PO DAILY 05/04/23 05/04/23 History Budesonide/Glycopyr/Formoterol 1 puff INHALATION RT-BID PRN 05/04/23 05/04/23 H istory [Breztri Aerosphere Inhaler] Magnesium 250 mg PO DAILY 05/04/23 05/04/23 History Montelukast [Singulair] 10 mg PO DAILY 05/04/23 05/04/23 History Semaglutide [Ozempic] 0.5 mg SQ IBRAHIM 05/04/23 05/04/23 History Semaglutide [Ozempic] 1 mg SQ DIRECTED 05/04/23 05/04/23 History Valsartan/Hydrochlorothiazide 1 tab PO DAILY 05/04/23 05/04/23 History [Valsartan-Hctz 320-12.5 mg Tab] Allergies Allergy/AdvReac Type Severity Reaction Status Date / Time No Known Allergies Allergy Verified 05/04/23 17:38 Physical Exam Vitals: Vital Signs Temp Pulse Resp BP Pulse Ox 05/05/23 08:00 98 F 86 20 142/87 05/05/23 04:00 82 18 124/81 97 05/05/23 01:44 18 05/05/23 00:00 97.5 F L 82 18 119/71 92 L 05/04/23 20:00 97.6 F 83 18 123/74 93 L 05/04/23 17:29 96 05/04/23 17:00 97.7 F 74 18 100/63 96 Intake and Output 05/04/23 05/05/23 05/05/23 22:59 06:59 14:59 Intake Total 80.373 110 Balance 80.373 110 Intake: Intake, IV Titration 80.373 Amount Heparin Sod,Pork in 0.45% 80.373 NaCl 25,000 unit In 0.45 % NaCl 1 250ml.bag @ 11. 77 UNITS/KG/HR 10.005 mls /hr IV .Q24H [facility] Rx#: [id number] Oral 110 Other: # Voids 2 Weight 85 kg Results CBC & Chem 7: 05/05/23 03:07 05/05/23 11:21 Labs: Abnormal Lab Results - Last 24 Hours (Table) 05/04/23 05/04/23 05/04/23 Range/Units 16:52 17:20 17:20 RDW 15.8 H (11.5-15.5) % APTT 42.6 H (22.0-30.0) sec Chloride (98-107) mmol/L Glucose (74-99) mg/dL POC Glucose (mg/dL) 118 H (70-110) mg/dL Calcium (8.4-10.2) mg/dL Magnesium (1.6-2.3) mg/dL 05/04/23 05/04/23 05/05/23 Range/Units 17:20 20:12 03:07 RDW 15.8 H (11.5-15.5) % APTT (22.0-30.0) sec Chloride 109 H (98-107) mmol/L Glucose 103 H (74-99) mg/dL POC Glucose (mg/dL) 171 H (70-110) mg/dL Calcium 7.0 L (8.4-10.2) mg/dL Magnesium 1.5 L (1.6-2.3) mg/dL 05/05/23 05/05/23 Range/Units 03:07 06:10 RDW (11.5-15.5) % APTT (22.0-30.0) sec Chloride 110 H (98-107) mmol/L Glucose 121 H (74-99) mg/dL POC Glucose (mg/dL) 148 H (70-110) mg/dL Calcium 7.1 L (8.4-10.2) mg/dL Magnesium (1.6-2.3) mg/dL Thrombosis Risk Factor Assmnt - Choose All That Apply Each Risk Factor Represents 2 Points: Age 61-74 years Thrombosis Risk Factor Assessment Total Risk Factor Score: 2 Thrombosis Risk Factor Assessment Level: Low Risk
--- NOTE | 2023-05-05 15:26 | P.PN ---
Subjective Progress Note Date: 05/05/23 History of present illness: This is a 62 year old female with past medical history of obesity, type 2 diab etes, hypothyroidism. Patient initially presented to [facility] with substernal chest pain radiating to her neck. She was also found to be in atrial fibrillation with RVR. Her initial troponin was negative and trended upward. She was started on heparin drip and IV Cardizem drip and converted to sinus rhythm. When she converted, her chest pain was resolved but due to her risk factors and up trending troponins along with substernal chest pain she underwent cardiac catheterization with Dr. Lyle. This revealed diffuse 90% proximal LAD disease, diffuse proximal diagonal disease small vessel, 90% proximal PDA disease, elevated LVEDP. Patient was transferred to [facility] for cardio thoracic surgery evaluation. If patient is not a candidate for CABG, Dr. Disla will perform PCI. CTA of the chest negative for pulmonary embolism. Echocardiogram revealed normal left ventricle size and systolic function with EF of 55%. Physical examination: Gen: This is a 62-year-old female resting in bed and appears to be comfortable in no acute distress VS: reviewed HEENT: Head is atraumatic, normocephalic. Pupils equal, round. Sclerae is anicteric. NECK: Supple. No JVD. . LUNGS: Clear to auscultation. No wheezes or rhonchi. No intercostal retractions. HEART: Regular rate and rhythm. No murmur. ABDOMEN: Soft No tenderness. EXTREMITIES: No pedal edema. No calf tenderness. NEUROLOGICAL: Patient is awake, alert and oriented x3. Assessment: Non-ST elevated myocardial infarction Multivessel coronary artery disease Diabetes mellitus type 2 Hypothyroidism Obesity Tobacco use and dependence Plan: Cardiothoracic surgery evaluation for CABG Continue patient on aspirin 81 mg daily, atorvastatin, heparin drip, Lopressor 50 mg twice daily Start patient on low dose Imdur Smoking cessation Further recommendations to follow based upon clinical course Thank you kindly for this consultation. Nurse practitioner note has been reviewed, I agree with documented findings and plan of care. Patient was seen and examined. Objective - Vital Signs Vital signs: Vital Signs Temp 98 F 05/05/23 08:00 Pulse 86 05/05/23 08:00 Resp 20 05/05/23 08:00 BP 142/87 05/05/23 08:00 Pulse Ox 97 05/05/23 04:00 FiO2 Intake & Output 05/04/23 05/05/23 05/05/23 18:59 06:59 18:59 Intake Total 80.373 110 Balance 80.373 110 Weight 85 kg Intake: Intake, IV Titration 80.373 Amount Heparin Sod,Pork in 0.45% 80.373 NaCl 25,000 unit In 0.45 % NaCl 1 250ml.bag @ 11. 77 UNITS/KG/HR 10.005 mls /hr IV .Q24H [facility] Rx#: [id number] Oral 110 Other: # Voids 2 - Labs CBC & Chem 7: 05/05/23 03:07 05/05/23 11:21 Labs: Abnormal Lab Results - Last 24 Hours (Table) 05/04/23 05/04/23 05/04/23 Range/Units 16:52 17:20 17:20 RDW 15.8 H (11.5-15.5) % APTT 42.6 H (22.0-30.0) sec Chloride (98-107) mmol/L Glucose (74-99) mg/dL POC Glucose (mg/dL) 118 H (70-110) mg/dL Calcium (8.4-10.2) mg/dL Magnesium (1.6-2.3) mg/dL 05/04/23 05/04/23 05/05/23 Range/Units 17:20 20:12 03:07 RDW 15.8 H (11.5-15.5) % APTT (22.0-30.0) sec Chloride 109 H (98-107) mmol/L Glucose 103 H (74-99) mg/dL POC Glucose (mg/dL) 171 H (70-110) mg/dL Calcium 7.0 L (8.4-10.2) mg/dL Magnesium 1.5 L (1.6-2.3) mg/dL 05/05/23 05/05/23 Range/Units 03:07 06:10 RDW (11.5-15.5) % APTT (22.0-30.0) sec Chloride 110 H (98-107) mmol/L Glucose 121 H (74-99) mg/dL POC Glucose (mg/dL) 148 H (70-110) mg/dL Calcium 7.1 L (8.4-10.2) mg/dL Magnesium (1.6-2.3) mg/dL
[2023-05-05] MEDS ORDERED: MD COMMUNICATION TO PHARMACY 1 EACH MISC PO ONE ×4 (15:39→15:40)
[2023-05-05 15:44] LABS: Chol/HDL Ratio 3.33 Ratio; LDL Cholesterol,Calculated 44.6 mg/dL (0.0-131.0)
[2023-05-05 16:29] LABS: Glucose,Whole Blood 150 mg/dL (70-110)
[2023-05-05 16:30] LABS: Hepatitis A Antibody IgM Nonreactive; Hepatitis B Core IgM Nonreactive; Hepatitis B Surface Antigen Nonreactive; Hepatitis C IgG Antibody Nonreactive
[2023-05-05] MEDS: MUPIROCIN 2% OINT 22 GM TUBE NASAL SCH (16:55)
[2023-05-05] MEDS: HEPARIN SOD,PORK IN 0.45% NACL 25,000 UNIT in 0.45% NACL 1 250ML.BAG IV SCH (17:13)
[2023-05-05] MEDS: ISOSORBIDE MONONITRATE ER 15 MG TAB PO SCH (17:14)
[2023-05-05] MEDS: MONTELUKAST 10 MG TAB PO SCH (21:19)
[2023-05-05 22:00] LABS: Glucose,Whole Blood 138 mg/dL (70-110)
[2023-05-05 22:20] LABS: Appearance,Urine Clear (Clear); Bilirubin,Urine Negative (Negative); Blood,Urine Negative (Negative); Color,Urine Colorless; Glucose,Urine (UA) Negative (Negative); Ketones,Urine Negative (Negative); Leukocyte Esterase,Urine Negative (Negative); Nitrite,Urine Negative (Negative); Protein,Urine Negative (Negative); Specific Gravity,Urine 1.007 (1.001-1.035); Urobilinogen,Urine <2.0 mg/dL (<2.0)
[2023-05-05] MEDS ORDERED: ALBUTEROL NEBULIZED 2.5 MG/3 ML INHALATION PRN (23:39)
[2023-05-06] MEDS: MUPIROCIN 2% OINT 22 GM TUBE NASAL SCH ×2 (00:11→09:16)
--- NOTE | 2023-05-06 02:46 | P.CNPUL ---
History of Present Illness Consult date: 05/06/23 Requesting physician: Link Yao Reason for consult: other (Preoperative cardiac surgery clearance) Chief complaint: Chest pain History of present illness: I am seeing this patient in consultation today 05/06/2023 on the cardiac stepdown unit for preoperative pulmonary clearance in preparation for open heart surgery to be done on May 07. Patient is a 62-year-old white female with past medical history significant for hypertension, hyperlipidemia, diabetes mellitus type 2, asthma, obesity, hypothyroidism. Patient does have a significant familial history of premature coronary artery disease and NV. She does follow with a nurse practitioner out of Dr. Holden Fitzgerald's office. Patient was awakened in the middle the night with severe substernal chest pain starting on 05/04/2023. She presented originally to [facility] and was diagnosed with a non-ST elevation NV. She was also in atrial fibrillation with RVR at that time. She did undergo heart catheterization at outside facility and was found to have severe multivessel coronary artery disease. Patient was then transferred to [facility] for surgical revascularization, which is scheduled this May 07. We were consulted for preoperative pulmonary clearance and postoperative ventilator management during her recovery. A bedside spirometry showed a FEV1 of 0.92 liters or 38%. Based on this, she is at a moderate increased intraoperative risk. Patient states that she takes as needed albuterol and was recently prescribed Breztri by her PCP, but has not started it. She actually denies any history of asthma or COPD. She does report severe seasonal ALLERGIES and is ALLERGIC to pet dander among other things. She also reports a significant smoking history of 1.5 pack per day since she was a teenager. Chest x-ray outside facility reportedly showed no acute cardiopulmona ry disease process. Patient is currently sitting up in bed, on 2 L/m nasal cannula, in no acute distress. SpO2 reading 95%. She is currently on IV heparin per protocol and normal saline is infusing at 75 mL per hour. She denies any further chest pain. She denies any pulmonary complaints. Most recent BMP shows sodium 140, potassium 3.8, chloride 110, serum bicarb 24, BUN 8, creatinine 0.65, glucose 120. LFTs mildly elevated. APTT subtherapeutic at 33.8. Patient is currently being monitored on the cardiac stepdown unit and is undergoing an extensive preoperative work up. Review of Systems REVIEW OF SYSTEMS: CONSTITUTIONAL: Denies any recent significant weight loss or weight gain. EYES: Denies change in vision. EARS, NOSE, MOUTH, THROAT: Denies headaches, denies sore throat. CARDIOVASCULAR: Denies any current chest pain, palpitations or syncopal episodes. RESPIRATORY: Denies shortness of breath, cough, congestion or hemoptysis. GASTROINTESTINAL: Denies change in appetite, abdominal pain, nausea and vomiting, or diarrhea GENITOURINARY: Denies hematuria, denies infections. MUSKULOSKELETAL: Denies pain, denies swelling. INTEGUMENTARY: Denies rash, denies eczema. NEUROLOGICAL: Denies recent memory loss, no recent seizure activity. PSYCHIATRIC: Denies anxiety, denies depression. HEMATOLOGIC/LYMPHATIC: Denies anemia, denies enlarged lymph node Past Medical History Past Medical History: Atrial Fibrillation, Diabetes Mellitus, Thyroid Disorder Additional Past Medical History / Comment(s): thyroid issues, a-fib new today, History of Any Multi-Drug Resistant Organisms: None Reported Past Surgical History: Section, Heart Catheterization Additional Past Surgical History / Comment(s): cataract, Hand, heart cath 05/04/23 Past Anesthesia/Blood Transfusion Reactions: No Reported Reaction Past Psychological History: No Psychological Hx Reported Smoking Status: Current every day smoker Past Alcohol Use History: None Reported Past Drug Use History: None Reported - Past Family History Mother Family Medical History: Myocardial Infarction (NV) (Had a myocardial infarction in her 30s) Father Family Medical History: Diabetes Mellitus, Myocardial Infarction (NV) Medications and Allergies Home Medications Medication Instructions Recorded Confirmed Type Dapagliflozin/Metformin HCl 1 tab PO DAILY 11/14/16 05/04/23 History [Xigduo Xr 10 mg-1,000 mg Tab] Levothyroxine Sodium [Synthroid] 50 mcg PO DAILY 11/14/16 05/04/23 History Loratadine [Claritin] 10 mg PO DAILY 11/14/16 05/04/23 History Albuterol Inhaler [Ventolin Hfa 1 - 2 puff INHALATION RT-Q6H PRN 05/04/23 05/04/23 History Inhaler] Atorvastatin [Lipitor] 20 mg PO DAILY 05/04/23 05/04/23 History Budesonide/Glycopyr/Formoterol 1 puff INHALATION RT-BID PRN 05/04/23 05/04/23 History [Breztri Aerosphere Inhaler] Magnesium 250 mg PO DAILY 05/04/23 05/04/23 History Montelukast [Singulair] 10 mg PO DAILY 05/04/23 05/04/23 History Semaglutide [Ozempic] 0.5 mg SQ IBRAHIM 05/04/23 05/04/23 History Semaglutide [Ozempic] 1 mg SQ DIRECTED 05/04/23 05/04/23 History Valsartan/Hydrochlorothiazide 1 tab PO DAILY 05/04/23 05/04/23 History [Valsartan-Hctz 320-12.5 mg Tab] Allergies Allergy/AdvReac Type Severity Reaction Status Date / Time No Known Allergies Allergy Verified 05/04/23 17:38 Physical Exam Vitals: Vital Signs Temp Pulse Resp BP Pulse Ox 05/05/23 23:31 98.2 F 60 16 97/60 95 05/05/23 21:16 98.1 F 89 18 106/65 93 L 05/05/23 16:00 81 20 126/73 05/05/23 11:37 96.1 F L 74 22 129/73 05/05/23 08:00 98 F 86 20 142/87 05/05/23 04:00 82 18 124/81 97 Intake and Output 05/05/23 05/05/23 05/06/23 14:59 22:59 06:59 Intake Total 433.975 70.652 96.42 Output Total 300 Balance 433.975 -229.348 96.42 Intake: Intake, IV Titration 98.975 70.652 96.42 Amount Heparin Sod,Pork in 0.45% 98.975 70.652 96.42 NaCl 25,000 unit In 0.45 % NaCl 1 250ml.bag @ 11. 77 UNITS/KG/HR 10.005 mls /hr IV .Q24H [facility] Rx#: [id number] Oral 335 Output: Urine 300 Other: Voiding Method Toilet GENERAL EXAM: Alert, 59-year-old white female appearing stated age , comfortable in no apparent distress. HEAD: Normocephalic and atraumatic EYES: Normal reaction of pupils, equal size. NOSE: Clear with pink turbinates. THROAT: No erythema or exudates. NECK: No masses, no JVD. CHEST: No chest wall deformity. LUNGS: Equal air entry with no crackles, wheeze, rhonchi or dullness. On room air. No conversational dyspnea or accessory muscle use.. CVS: S1 and S2 normal with no audible murmur, regular rhythm. No extra heart sounds ABDOMEN: No hepatosplenomegaly, active bowel sounds, no guarding or rigidity. SPINE: No scoliosis or deformity SKIN: No rashes CENTRAL NERVOUS SYSTEM: No focal deficits, tone is normal in all 4 extremities. EXTREMITIES: There is no peripheral edema, clubbing, or cyanosis. Peripheral pulses are intact. Results - Laboratory Findings CBC and BMP: 05/05/23 03:07 05/05/23 11:21 PT/INR, D-dimer PT 10.4 sec (10.0-12.5) 05/05/23 03:07 INR 0.9 (<1.2) 05/05/23 03:07 Abnormal lab findings: Abnormal Labs 05/04/23 05/04/23 05/04/23 16:52 17:20 17:20 RDW 15.8 H APTT 42.6 H Chloride Glucose POC Glucose (mg/dL) 118 H Calcium Magnesium AST ALT Total Protein Albumin Triglycerides VLDL Cholesterol, Calc HDL Cholesterol 05/04/23 05/04/23 05/05/23 17:20 20:12 03:07 RDW 15.8 H APTT Chloride 109 H Glucose 103 H POC Glucose (mg/dL) 171 H Calcium 7.0 L Magnesium 1.5 L AST ALT Total Protein Albumin Triglycerides VLDL Cholesterol, Calc HDL Cholesterol 05/05/23 05/05/23 05/05/23 03:07 06:10 11:16 RDW APTT Chloride 110 H Glucose 121 H POC Glucose (mg/dL) 148 H 129 H Calcium 7.1 L Magnesium AST ALT Total Protein Albumin Triglycerides VLDL Cholesterol, Calc HDL Cholesterol 05/05/23 05/05/23 05/05/23 11:21 11:21 16:27 RDW APTT 31.9 H Chloride 110 H Glucose 120 H POC Glucose (mg/dL) 150 H Calcium 7.7 L Magnesium AST 43 H ALT 40 H Total Protein 5.8 L Albumin 3.4 L Triglycerides 218.00 H VLDL Cholesterol, Calc 43.60 H HDL Cholesterol 37.80 L 05/05/23 05/05/23 21:48 21:59 RDW APTT 33.8 H Chloride Glucose POC Glucose (mg/dL) 138 H Calcium Magnesium AST ALT Total Protein Albumin Triglycerides VLDL Cholesterol, Calc HDL Cholesterol Assessment and Plan Assessment: Non-ST elevation myocardial infarction Severe multivessel coronary artery disease, scheduled for surgical myocardial revascularization on , May 07 Suspected COPD/asthma, stable Hyperlipidemia Hypertension Left internal carotid artery stenosis, estimated at 50-69%, based on carotid duplex ultrasound Diabetes mellitus type 2 Hypothyroidism Obesity with a BMI of 32.2 kg/m Chronic ongoing tobacco dependence, currently smoking 1.5 packs per day Plan: Patient is scheduled for CABG tomorrow, May 07. She is undergoing an extensive preoperative workup. A limited bedside spirometry demonstrated a FEV1 of 0.92 liters or 38%, placing the patient at a moderate increase operative risk. Patient likely has underlying asthma and/or COPD, we will optimize her lung function with a combination of Ventolin HFA and Symbicort inhaler. Smoking cessation counseling performed Incentive spirometer is at bedside and is being encouraged. Currently on heparin infusion. Denies any further chest pain. Patient is currently being monitored on the cardiac stepdown unit. We will continue to follow and monitor the patient while in the intensive care unit during her postoperative recovery and liberation from the mechanical ventilator. Time with Patient: Greater than 30
[2023-05-06 06:07] LABS: Glucose,Whole Blood 117 mg/dL (70-110)
[2023-05-06] MEDS: INSULIN ASPART (NovoLOG) 100 UNIT/ML VIAL SQ SCH ×4 (06:09→21:27)
[2023-05-06] MEDS: LEVOTHYROXINE 50 MCG TAB PO SCH (06:14)
[2023-05-06] MEDS: SODIUM CHLORIDE 0.9% 1,000 ML IV SCH ×2 (06:15→06:17)
--- NOTE | 2023-05-06 07:15 | P.PN ---
Subjective Progress Note Date: 05/06/23 Principal diagnosis: Coronary artery disease, NSTEMI this admission, new onset atrial fibrillation. History of hypertension, hyperlipidemia, left internal carotid artery stenosis, type 2 diabetes mellitus, hypothyroid, chronic ongoing tobacco dependence, severe COPD, asthma, chronic back pain, obesity, and family history of premature coronary artery disease. The patient was seen and examined coronary laying in bed on the cardiac stepdown unit in no acute distress. She denies any chest pain or shortness of breath at this time. Anticipate surgery tomorrow, no new questions at this time. Objective - Vital Signs Vital signs: Vital Signs Temp 98.5 F 05/06/23 04:00 Pulse 77 05/06/23 04:00 Resp 16 05/06/23 04:00 BP 117/71 05/06/23 04:00 Pulse Ox 94 L 05/06/23 04:00 FiO2 Intake & Output 05/05/23 05/05/23 05/06/23 06:59 18:59 06:59 Intake Total 80.373 504.627 96.42 Output Total 300 Balance 80.373 504.627 -203.58 Weight 89.1 kg Intake: Intake, IV Titration 80.373 169.627 96.42 Amount Heparin Sod,Pork in 0.45% 80.373 169.627 96.42 NaCl 25,000 unit In 0.45 % NaCl 1 250ml.bag @ 11. 77 UNITS/KG/HR 10.005 mls /hr IV .Q24H [facility] Rx#: [id number] Oral 335 Output: Urine 300 Other: Voiding Method Toilet # Voids 2 - Exam CONSTITUTIONAL: Appears comfortable, cooperative, no acute distress RESPIRATORY: Lungs sounds diminished bilaterally. Respirations even, nonlabored. Currently on room air with oxygen saturation 94%. Able to achieve 1500 mL on incentive spirometry. Strong cough. CARDIOVASCULAR: S1, S2 present. Regular rate and rhythm, sinus rhythm on telemetry. Palpable peripheral pulses bilaterally. No edema present. No calf pain or tenderness noted GASTROINTESTINAL: Abdomen soft, nontender, nondistended. Active bowel sounds present 4 quadrants. Tolerating diet GENITOURINARY: Continues to void INTEGUMENTARY: Skin is warm and dry NEUROLOGIC: Cranial nerves II through XII intact MUSKULOSKELETAL: Able to move all extremities, strength equal bilaterally, gait normal PSYCHIATRIC: Alert and oriented to person place and time, appropriate affect, intact judgment and insight - Allied health notes Allied health notes reviewed: nursing - Labs CBC & Chem 7: 05/05/23 03:07 05/05/23 11:21 Labs: Abnormal Lab Results - Last 24 Hours (Table) 05/05/23 05/05/23 05/05/23 Range/Units 11:16 11:21 11:21 APTT 31.9 H (22.0-30.0) sec Chloride 110 H (98-107) mmol/L Glucose 120 H (74-99) mg/dL POC Glucose (mg/dL) 129 H (70-110) mg/dL Calcium 7.7 L (8.4-10.2) mg/dL AST 43 H (14-36) U/L ALT 40 H (4-34) U/L Total Protein 5.8 L (6.3-8.2) g/dL Albumin 3.4 L (3.5-5.0) g/dL Triglycerides 218.00 H (0.00-149.00) mg/dL VLDL Cholesterol, Calc 43.60 H (5.00-40.00) mg/dL HDL Cholesterol 37.80 L (40.00-60.00) mg/dL 05/05/23 05/05/23 05/05/23 Range/Units 16:27 21:48 21:59 APTT 33.8 H (22.0-30.0) sec Chloride (98-107) mmol/L Glucose (74-99) mg/dL POC Glucose (mg/dL) 150 H 138 H (70-110) mg/dL Calcium (8.4-10.2) mg/dL AST (14-36) U/L ALT (4-34) U/L Total Protein (6.3-8.2) g/dL Albumin (3.5-5.0) g/dL Triglycerides (0.00-149.00) mg/dL VLDL Cholesterol, Calc (5.00-40.00) mg/dL HDL Cholesterol (40.00-60.00) mg/dL 05/06/23 Range/Units 06:06 APTT (22.0-30.0) sec Chloride (98-107) mmol/L Glucose (74-99) mg/dL POC Glucose (mg/dL) 117 H (70-110) mg/dL Calcium (8.4-10.2) mg/dL AST (14-36) U/L ALT (4-34) U/L Total Protein (6.3-8.2) g/dL Albumin (3.5-5.0) g/dL Triglycerides (0.00-149.00) mg/dL VLDL Cholesterol, Calc (5.00-40.00) mg/dL HDL Cholesterol (40.00-60.00) mg/dL Assessment and Plan Assessment: Coronary artery disease, NSTEMI this admission New onset atrial fibrillation, currently sinus History of hypertension Hyperlipidemia, treated, cholesterol 126, LDL 44, triglycerides 218 Left internal carotid artery stenosis, 50-69% Type 2 diabetes mellitus, preoperative hemoglobin A1c 7.3% Hypothyroid Chronic ongoing tobacco dependence Severe COPD, preoperative FEV1 38% of predicted Asthma Chronic back pain Obesity Family history of premature coronary artery disease Plan: Continue to maximize medical therapy with aspirin, statin, IV heparin, beta daniel Encourage incentive spirometry use Increase activity as tolerated Patient scheduled for off-pump myocardial revascularization with left internal mammary artery, endoscopic vein harvest, exclusion of the left atrial appendage tomorrow, May [address] Daniel Nothing by mouth after midnight Stop heparin drip manufacturing production manager to the OR Medical management of her comorbidities per internal medicine, cardiology, pulmonology More recommendations to follow
[2023-05-06] MEDS: SYMBICORT 80-4.5 MCG INHALER INHALATION SCH ×2 (08:25→21:35)
[2023-05-06] MEDS: ALBUTEROL NEBULIZED 2.5 MG/3 ML INHALATION SCH ×4 (08:25→21:35)
[2023-05-06] MEDS: METOPROLOL TARTRATE 50 MG TAB PO SCH ×2 (09:16→21:28)
[2023-05-06] MEDS: ATORVASTATIN 20 MG TAB PO SCH (09:16)
[2023-05-06] MEDS: FAMOTIDINE 20 MG TAB PO SCH (09:16)
[2023-05-06] MEDS: ASPIRIN 81 MG PO SCH (09:16)
[2023-05-06] MEDS: MAGNESIUM OXIDE 400 MG TAB PO SCH (09:16)
[2023-05-06] MEDS: ISOSORBIDE MONONITRATE ER 15 MG TAB PO SCH (09:17)
[2023-05-06] MEDS: HEPARIN SOD,PORK IN 0.45% NACL 25,000 UNIT in 0.45% NACL 1 250ML.BAG IV SCH (09:57)
--- NOTE | 2023-05-06 10:46 | P.PN ---
Subjective Progress Note Date: 05/06/23 Patient endorsed to [facility] at 8:44AM on 05/05. 62-year-old female with PMH of diabetes mellitus, hypertension, dyslipidemia, hypothyroidism presented to [facility] for chest pain that started Thursday night around 12:30AM. Chest pain described as pressure like, radiating to the bilateral jaws. Cardiac cath showed 90% stenosis of her proximal left anterior descending artery, 40-50% stenosis to her mid left anterior descending coronary, a small diagonal branch #1 with a 80-90% stenosis, a 30-40% stenosis to the mid segment of her right coronary artery and a 90% stenosis to the proximal PDA coronary artery. She was transferred to [facility] for NSTEMI and Cardiothoracic surgery evaluation for CABG. She reports smoking 1 pack of cigarettes daily since 17 years old. She currently denies any chest pain. She is quite anxious about her upcoming surgery. No other complaints. CBC shows RDW 15.8. APTT 31.9. CMP shows Cl 110, glucose 120, Ca 7.7, AST 43, ALT 40. TSH 1.83. Currently workup done at [facility] includes: Vein mapping US. Carotid doppler shows 50-69% stenosis left ICA, < 50% right ICA. LANEY shows borderline abnormal right LANEY, normal left LANEY. 05/06 Patient was seen and examined. Plans for CABG tomorrow. Reports anxiety. No chest pain. Currently on heparin drip. EKG shows sinus rhythm with moderate ST depression. General: non toxic, no distress, appears at stated age Derm: warm, dry Head: atraumatic, normocephalic, symmetric Eyes: EOMI, no lid lag, anicteric sclera Mouth: no lip lesion, mucus membranes moist Cardiovascular: S1S2 reg, no murmur Lungs: CTA bilateral, no rhonchi, no rales , no accessory muscle use Ext: no gross muscle atrophy, no edema, no contractures Neuro: no focal neuro deficits Psych: Alert, oriented, appropriate affect NSTEMI Transaminitis Hypomagnesemia Hypocalcemia Chronic conditions: diabetes mellitus, hypertension, dyslipidemia, hypothyroidism Based on my assessment of this patient, this patient meets a high complexity level of care. Patient has an acute diagnosis of NSTEMI that poses a threat to life or bodily function. Plans for CABG planned for Thursday. NSTEMI: ASA 81 mg PO QD. Lipitor 20 mg PO QD. Heparin drip at 20.77 units/kg/hr. Metoprolol 50 mg PO BID. Telemetry monitoring. Cardiology and CT surgery consulted. Transaminitis: Mild elevation. Likley hepatic steotosis. Nonobstructive. Hepa titis panel negative. Hypomagnesemia: Given 1 g Mag sulfate IV. Resolved. Replace via protocol. Hypocalcemia: Monitor. I have reviewed the following domestic travel consultant notes: Cardiothoracic surgery, Pulm note. I have reviewed the results of the following tests: I have ordered the following tests: I have discussed the care of this patient with the following independent historian: I have independently interpreted the following test below: EKG as above. I have discussed the management of this patient with the following physician: Objective - Vital Signs Vital signs: Vital Signs Temp 98.2 F 05/06/23 07:47 Pulse 88 05/06/23 08:39 Resp 19 05/06/23 07:47 BP 111/69 05/06/23 07:47 Pulse Ox 95 05/06/23 08:30 FiO2 Intake & Output 05/05/23 05/06/23 05/06/23 18:59 06:59 18:59 Intake Total 504.627 96.42 503.58 Output Total 300 Balance 504.627 -203.58 503.58 Weight 89.1 kg Intake: Intake, IV Titration 169.627 96.42 153.58 Amount Heparin Sod,Pork in 0.45% 169.627 96.42 153.58 NaCl 25,000 unit In 0.45 % NaCl 1 250ml.bag @ 11. 77 UNITS/KG/HR 10.005 mls /hr IV .Q24H [facility] Rx#: [id number] Oral 335 350 Output: Urine 300 Other: Voiding Method Toilet Toilet - Labs CBC & Chem 7: 05/05/23 03:07 05/05/23 11:21 Labs: Abnormal Lab Results - Last 24 Hours (Table) 05/05/23 05/05/23 05/05/23 Range/Units 11:16 11:21 11:21 APTT 31.9 H (22.0-30.0) sec Chloride 110 H (98-107) mmol/L Glucose 120 H (74-99) mg/dL POC Glucose (mg/dL) 129 H (70-110) mg/dL Calcium 7.7 L (8.4-10.2) mg/dL AST 43 H (14-36) U/L ALT 40 H (4-34) U/L Total Protein 5.8 L (6.3-8.2) g/dL Albumin 3.4 L (3.5-5.0) g/dL Triglycerides 218.00 H (0.00-149.00) mg/dL VLDL Cholesterol, Calc 43.60 H (5.00-40.00) mg/dL HDL Cholesterol 37.80 L (40.00-60.00) mg/dL 05/05/23 05/05/23 05/05/23 Range/Units 16:27 21:48 21:59 APTT 33.8 H (22.0-30.0) sec Chloride (98-107) mmol/L Glucose (74-99) mg/dL POC Glucose (mg/dL) 150 H 138 H (70-110) mg/dL Calcium (8.4-10.2) mg/dL AST (14-36) U/L ALT (4-34) U/L Total Protein (6.3-8.2) g/dL Albumin (3.5-5.0) g/dL Triglycerides (0.00-149.00) mg/dL VLDL Cholesterol, Calc (5.00-40.00) mg/dL HDL Cholesterol (40.00-60.00) mg/dL 05/06/23 Range/Units 06:06 APTT (22.0-30.0) sec Chloride (98-107) mmol/L Glucose (74-99) mg/dL POC Glucose (mg/dL) 117 H (70-110) mg/dL Calcium (8.4-10.2) mg/dL AST (14-36) U/L ALT (4-34) U/L Total Protein (6.3-8.2) g/dL Albumin (3.5-5.0) g/dL Triglycerides (0.00-149.00) mg/dL VLDL Cholesterol, Calc (5.00-40.00) mg/dL HDL Cholesterol (40.00-60.00) mg/dL
[2023-05-06 11:22] LABS: Glucose,Whole Blood 140 mg/dL (70-110)
--- NOTE | 2023-05-06 12:29 | P.PN ---
Subjective Progress Note Date: 05/06/23 History of present illness: This is a 62 year old female with past medical history of obesity, type 2 diab etes, hypothyroidism. Patient initially presented to [facility] with substernal chest pain radiating to her neck. She was also found to be in atrial fibrillation with RVR. Her initial troponin was negative and trended upward. She was started on heparin drip and IV Cardizem drip and converted to sinus rhythm. When she converted, her chest pain was resolved but due to her risk factors and up trending troponins along with substernal chest pain she underwent cardiac catheterization with Dr. Lyle. This revealed diffuse 90% proximal LAD disease, diffuse proximal diagonal disease small vessel, 90% proximal PDA disease, elevated LVEDP. Patient was transferred to [facility] for cardio thoracic surgery evaluation. If patient is not a candidate for CABG, Dr. Disla will perform PCI. CTA of the chest negative for pulmonary embolism. Echocardiogram revealed normal left ventricle size and systolic function with EF of 55%. 05/06 Patient is scheduled for CABG tomorrow. She is maintained on heparin drip, aspirin 81 mg daily, Lipitor 20 mg daily, Imdur 15 mg daily, Lopressor 50 mg twice daily. Patient denies having any chest pain. She has shortness of breath with activity. Patient states that she is quite anxious regarding anticipation of the surgery tomorrow. Physical examination: Gen: This is a 62-year-old female resting in bed and appears to be comfortable in no acute distress VS: reviewed HEENT: Head is atraumatic, normocephalic. Pupils equal, round. Sclerae is anicteric. NECK: Supple. No JVD. LUNGS: Clear to auscultation. No wheezes or rhonchi. No intercostal retractions. HEART: Regular rate and rhythm. No murmur. ABDOMEN: Soft No tenderness. EXTREMITIES: No pedal edema. No calf tenderness. NEUROLOGICAL: Patient is awake, alert and oriented x3. Assessment: Non-ST elevated myocardial infarction Multivessel coronary artery disease Diabetes mellitus type 2 Hypothyroidism Obesity Tobacco use and dependence Plan: Cardiothoracic surgery evaluation for CABG scheduled for Continue patient on aspirin 81 mg daily, atorvastatin, heparin drip, Lopressor 50 mg twice daily, Imdur Smoking cessation Further recommendations to follow based upon clinical course Nurse practitioner note has been reviewed, I agree with documented findings and plan of care. Patient was seen and examined. Objective - Vital Signs Vital signs: Vital Signs Temp 98.2 F 05/06/23 07:47 Pulse 88 05/06/23 08:39 Resp 19 05/06/23 07:47 BP 111/69 05/06/23 07:47 Pulse Ox 95 05/06/23 08:30 FiO2 Intake & Output 05/05/23 05/06/23 05/06/23 18:59 06:59 18:59 Intake Total 504.627 96.42 110 Output Total 300 Balance 504.627 -203.58 110 Weight 89.1 kg Intake: Intake, IV Titration 169.627 96.42 Amount Heparin Sod,Pork in 0.45% 169.627 96.42 NaCl 25,000 unit In 0.45 % NaCl 1 250ml.bag @ 11. 77 UNITS/KG/HR 10.005 mls /hr IV .Q24H [facility] Rx#: [id number] Oral 335 110 Output: Urine 300 Other: Voiding Method Toilet - Labs CBC & Chem 7: 05/05/23 03:07 05/05/23 11:21 Labs: Abnormal Lab Results - Last 24 Hours (Table) 05/05/23 05/05/23 05/05/23 Range/Units 11:16 11:21 11:21 APTT 31.9 H (22.0-30.0) sec Chloride 110 H (98-107) mmol/L Glucose 120 H (74-99) mg/dL POC Glucose (mg/dL) 129 H (70-110) mg/dL Calcium 7.7 L (8.4-10.2) mg/dL AST 43 H (14-36) U/L ALT 40 H (4-34) U/L Total Protein 5.8 L (6.3-8.2) g/dL Albumin 3.4 L (3.5-5.0) g/dL Triglycerides 218.00 H (0.00-149.00) mg/dL VLDL Cholesterol, Calc 43.60 H (5.00-40.00) mg/dL HDL Cholesterol 37.80 L (40.00-60.00) mg/dL 05/05/23 05/05/23 05/05/23 Range/Units 16:27 21:48 21:59 APTT 33.8 H (22.0-30.0) sec Chloride (98-107) mmol/L Glucose (74-99) mg/dL POC Glucose (mg/dL) 150 H 138 H (70-110) mg/dL Calcium (8.4-10.2) mg/dL AST (14-36) U/L ALT (4-34) U/L Total Protein (6.3-8.2) g/dL Albumin (3.5-5.0) g/dL Triglycerides (0.00-149.00) mg/dL VLDL Cholesterol, Calc (5.00-40.00) mg/dL HDL Cholesterol (40.00-60.00) mg/dL 05/06/23 Range/Units 06:06 APTT (22.0-30.0) sec Chloride (98-107) mmol/L Glucose (74-99) mg/dL POC Glucose (mg/dL) 117 H (70-110) mg/dL Calcium (8.4-10.2) mg/dL AST (14-36) U/L ALT (4-34) U/L Total Protein (6.3-8.2) g/dL Albumin (3.5-5.0) g/dL Triglycerides (0.00-149.00) mg/dL VLDL Cholesterol, Calc (5.00-40.00) mg/dL HDL Cholesterol (40.00-60.00) mg/dL
[2023-05-06 16:36] LABS: Glucose,Whole Blood 174 mg/dL (70-110)
[2023-05-06 20:07] LABS: Glucose,Whole Blood 156 mg/dL (70-110)
[2023-05-06] MEDS: MONTELUKAST 10 MG TAB PO SCH (21:28)
[2023-05-07] MEDS: MUPIROCIN 2% OINT 22 GM TUBE NASAL SCH (03:13)
[2023-05-07] MEDS ORDERED: ALBUMIN HUMAN 5% 500 ML in EMPTY BAG 1 BAG IVPB ONE ×6 (05:00)
[2023-05-07] MEDS ORDERED: NOREPINEPHRINE 4 MG in SODIUM CHLORIDE 0.9% 250 ML IV SCH (05:00)
[2023-05-07] MEDS ORDERED: PAPAVERINE 360 MG in SODIUM CHLORIDE 0.9% 90 ML IV ONE ×2 (05:00→10:00)
[2023-05-07] MEDS ORDERED: NITROGLYCERIN-D5W PMX 25 MG/250 ML BTL IV ONE (05:00)
[2023-05-07] MEDS ORDERED: INSULIN REGULAR 100 UNIT in SODIUM CHLORIDE 0.9% 100 ML IV SCH (05:00)
[2023-05-07] MEDS ORDERED: TRANEXAMIC ACID 2,000 MG in SODIUM CHLORIDE 0.9% 80 ML IV ONE ×4 (05:00)
[2023-05-07] MEDS ORDERED: HEPARIN SODIUM,PORCINE (1 ML) 5,000 UNIT in SODIUM CHLORIDE 0.9% 500 ML 500 ML IV ONE (05:00)
[2023-05-07] MEDS ORDERED: HEPARIN SODIUM 1,000 UN/ML (10ML VL) IV ONE (05:00)
[2023-05-07] MEDS ORDERED: ceFAZolin 1,000 MG in SODIUM CHLORIDE 0.9% IRRIGATIO 1,000 ML IRRIGATION ONE (05:00)
[2023-05-07] MEDS ORDERED: ASPIRIN 325 MG TAB PO ONE (05:00)
[2023-05-07] MEDS ORDERED: CALCIUM CHLORIDE 100 MG/ML 10 ML SYRINGE IVP ONE (05:00)
[2023-05-07] MEDS ORDERED: NITROGLYCERIN-D5W PMX 50 MG in DEXTROSE/WATER 1 250ML.BAG IV SCH ×2 (05:00→12:34)
[2023-05-07] MEDS ORDERED: SODIUM BICARB 8.4% 50 ML SYR (1 MEQ/ML) IV ONE (05:00)
[2023-05-07] MEDS ORDERED: ALBUMIN HUMAN 25% 50 ML in EMPTY BAG 1 BAG IVPB ONE (05:00)
[2023-05-07] MEDS ORDERED: ELECTROLYTE-A SOLUTION 1,000 ML with POTASSIUM CHLORIDE 40 MEQ, MAGNESIUM SULFATE 16 ME... IV ONE ×5 (05:00)
[2023-05-07] MEDS ORDERED: CHLORHEXIDINE GLUCONATE 15 ML CUP MUCOUS MEM ONE (05:00)
[2023-05-07] MEDS ORDERED: ELECTROLYTE-A SOLUTION 1,000 ML with POTASSIUM CHLORIDE 100 MEQ, MAGNESIUM SULFATE 16 M... IV ONE ×5 (05:00)
[2023-05-07] MEDS ORDERED: PROTAMINE SULFATE 250 MG in EMPTY BAG 1 BAG IV ONE (05:00)
[2023-05-07] MEDS ORDERED: PHENYLEPHRINE 10 MG/ML VIAL IV ONE (05:00)
[2023-05-07] MEDS ORDERED: ATORVASTATIN 10 MG TAB PO ONE (05:00)
[2023-05-07] MEDS ORDERED: CLEVIDIPINE BUTYRATE 25 MG in EMPTY BAG 1 BAG IV SCH ×2 (05:00→12:34)
[2023-05-07] MEDS ORDERED: METOPROLOL TARTRATE 12.5 MG TAB PO ONE (05:00)
[2023-05-07] MEDS ORDERED: PHENYLEPHRINE 40 MG in SODIUM CHLORIDE 0.9% 250 ML IV ONE (05:00)
[2023-05-07] MEDS ORDERED: MAGNESIUM SULFATE 16.24 MEQ in EMPTY SYRINGE 1 SYR IV ONE (05:00)
[2023-05-07] MEDS ORDERED: PROTAMINE SULFATE 10 MG/ML 25 ML VIAL IV ONE (05:00)
[2023-05-07] MEDS ORDERED: MANNITOL 25% 12.5 GM/50 ML VIAL IV ONE ×2 (05:00)
[2023-05-07 05:11] LABS: Glucose,Whole Blood 129 mg/dL (70-110)
[2023-05-07] MEDS: MAGNESIUM OXIDE 400 MG TAB PO SCH (05:15)
[2023-05-07] MEDS: FAMOTIDINE 20 MG TAB PO SCH (05:16)
[2023-05-07] MEDS: LEVOTHYROXINE 50 MCG TAB PO SCH (05:17)
[2023-05-07] MEDS: ATORVASTATIN 20 MG TAB PO SCH (05:18)
[2023-05-07] MEDS: ASPIRIN 81 MG PO SCH (05:18)
[2023-05-07] MEDS: INSULIN ASPART (NovoLOG) 100 UNIT/ML VIAL SQ SCH (05:18)
[2023-05-07] MEDS: METOPROLOL TARTRATE 50 MG TAB PO SCH (05:19)
[2023-05-07] MEDS ORDERED: LACTATED RINGERS 1,000 ML IV ONE (06:36)
[2023-05-07] MEDS ORDERED: DILTIAZEM 125 MG in SODIUM CHLORIDE 0.9% 100 ML IV SCH (06:59)
[2023-05-07] MEDS ORDERED: MIDAZOLAM HCL 10 MG/10 ML VIAL ONE (07:23)
[2023-05-07] MEDS ORDERED: VECURONIUM 10 MG VIAL IV ONE (07:23)
[2023-05-07] MEDS ORDERED: NITROGLYCERIN-D5W PMX 50 MG/250 ML BOTTLE IV ONE (07:23)
[2023-05-07] MEDS ORDERED: PROTAMINE SULFATE 10 MG/ML 5 ML VIAL ONE (07:23)
[2023-05-07] MEDS ORDERED: fentaNYL (PF) 50 MCG/ML 50 ML VIAL ONE (07:23)
[2023-05-07] MEDS ORDERED: SUCCINYLCHOLINE CHLORIDE 200 MG/10 ML VIAL IV ONE (07:23)
[2023-05-07] MEDS ORDERED: HEPARIN SODIUM,PORCINE 10,000 UNIT/ML 1 ML VIAL ONE (07:23)
[2023-05-07 08:47] LABS: ABG Glucose Whole Blood 110 mg/dL (75-99); ABG Hematocrit 34 % (34.0-46.0); ABG Ionized Calcium 4.5 mg/dL (4.5-5.3); ABG Lactic Acid Whole Blood 1.2 mmol/L (0.5-1.6); ABG Oxygen Saturation 96.9 % (94-97); ABG PH 7.39 (7.35-7.45); ABG PO2 75 mmHg (83-108); ABG Potassium Whole Blood 3.6 mmol/L (3.4-4.5); ABG Sodium Whole Blood 142 mmol/L (135-146)
[2023-05-07 09:48] LABS: ABG Hematocrit 32 % (34.0-46.0); ABG Ionized Calcium 4.3 mg/dL (4.5-5.3); ABG Oxygen Saturation 99.2 % (94-97); ABG PH 7.34 (7.35-7.45); ABG PO2 133 mmHg (83-108); ABG Potassium Whole Blood 3.8 mmol/L (3.4-4.5); ABG Sodium Whole Blood 142 mmol/L (135-146)
[2023-05-07 09:51] LABS: ABG Glucose Whole Blood 123 mg/dL (75-99); ABG Hematocrit 32 % (34.0-46.0); ABG Ionized Calcium 4.4 mg/dL (4.5-5.3); ABG Lactic Acid Whole Blood 0.7 mmol/L (0.5-1.6); ABG Oxygen Saturation 99.1 % (94-97); ABG PH 7.33 (7.35-7.45); ABG PO2 136 mmHg (83-108); ABG Potassium Whole Blood 3.8 mmol/L (3.4-4.5); ABG Sodium Whole Blood 142 mmol/L (135-146)
[2023-05-07] MEDS ORDERED: SODIUM CHLORIDE 0.9% 500 ML 500 ML with HEPARIN SODIUM,PORCINE (1 ML) 5,000 UNIT IV ONE ×2 (09:59)
[2023-05-07] MEDS ORDERED: ceFAZolin 1,000 MG in SODIUM CHLORIDE 0.9% 1,000 ML IRRIGATION ONE (10:00)
[2023-05-07 10:38] LABS: ABG Glucose Whole Blood 138 mg/dL (75-99); ABG Hematocrit 31 % (34.0-46.0); ABG Ionized Calcium 4.2 mg/dL (4.5-5.3); ABG Lactic Acid Whole Blood 0.6 mmol/L (0.5-1.6); ABG Oxygen Saturation 99.8 % (94-97); ABG PH 7.39 (7.35-7.45); ABG PO2 202 mmHg (83-108); ABG Sodium Whole Blood 141 mmol/L (135-146)
[2023-05-07] MEDS: SYMBICORT 80-4.5 MCG INHALER INHALATION SCH ×2 (10:59→19:23)
[2023-05-07] MEDS: ALBUTEROL NEBULIZED 2.5 MG/3 ML INHALATION SCH (10:59)
[2023-05-07] MEDS ORDERED: DEXMEDETOMIDINE/0.9% NACL(PMX) 400 MCG in EMPTY BAG 1 BAG IV SCH (12:34)
[2023-05-07] MEDS ORDERED: AMIODARONE 450 MG in DEXTROSE 5% IN WATER 250 ML IV PRN ×2 (12:34)
[2023-05-07] MEDS ORDERED: AMIODARONE 360 MG in DEXTROSE 5% IN WATER 200 ML IV PRN ×2 (12:34)
[2023-05-07] MEDS ORDERED: ONDANSETRON 4 MG/2 ML VIAL IVP PRN (12:34)
[2023-05-07] MEDS ORDERED: ALBUMIN HUMAN 5% 250 ML in EMPTY BAG 1 BAG IVPB PRN (12:34)
[2023-05-07] MEDS ORDERED: DEXTROSE 5% IN WATER 100 ML with AMIODARONE 150 MG IV PRN (12:34)
[2023-05-07] MEDS ORDERED: Magnesium Replacement Protocol 1 EACH MISC MISCELLANE PRN (12:34)
[2023-05-07] MEDS ORDERED: hydrALAZINE HCL 20 MG/ML 1 ML VIAL IVP PRN (12:34)
[2023-05-07] MEDS ORDERED: Potassium Replacement Protocol 1 EACH MISC MISCELLANE PRN ×2 (12:34→14:55)
[2023-05-07] MEDS ORDERED: DEXTROSE 50% SYRINGE 50 ML IVP PRN ×2 (12:34)
[2023-05-07] MEDS ORDERED: METOCLOPRAMIDE 5 MG/ML 2 ML VIAL IVP PRN (12:34)
[2023-05-07] MEDS ORDERED: BENZOCAINE/MENTHOL LOZENG 1 EACH LOZENGE MUCOUS MEM PRN (12:34)
[2023-05-07 12:51] LABS: ABG Base Excess -1.5 mmol/L; ABG HCO3 23 mmol/L (21-25); ABG PCO2 38 mmHg (35-45); ABG TCO2 24 mmol/L (19-24)
[2023-05-07 12:54] LABS: ABG Base Excess -2.5 mmol/L; ABG Glucose Whole Blood 120 mg/dL (75-99); ABG HCO3 23 mmol/L (21-25); ABG Lactic Acid Whole Blood 0.7 mmol/L (0.5-1.6); ABG PCO2 43 mmHg (35-45); ABG TCO2 25 mmol/L (19-24)
[2023-05-07 12:55] LABS: ABG Base Excess -2.7 mmol/L; ABG HCO3 23 mmol/L (21-25); ABG PCO2 44 mmHg (35-45); ABG TCO2 25 mmol/L (19-24)
[2023-05-07 12:56] LABS: ABG Base Excess -2.3 mmol/L; ABG HCO3 22 mmol/L (21-25); ABG PCO2 37 mmHg (35-45); ABG TCO2 24 mmol/L (19-24)
[2023-05-07] MEDS ORDERED: AMIODARONE 360 MG in DEXTROSE 5% IN WATER 200 ML IV ONE ×2 (13:06)
[2023-05-07] MEDS: LACTATED RINGERS 1,000 ML IV SCH (13:06)
--- NOTE | 2023-05-07 13:32 | P.OP ---
Date of Procedure: 05/07/23 Preoperative Diagnosis: 3v CAD with NSTEMI Morbid Obesity COPD HLD HTN Postoperative Diagnosis: Same Procedure(s) Performed: 1. Off pump coronary artery bypass grafting x 3. Left internal thoracic artery (in-situ) to left anterior descending coronary artery. Radial artery from aorta to ramus intermedius artery. Saphenous vein from aorta to posterior descending coronary artery. 2. Endoscopic left radial and left greater saphenous vein harvest 3. Left atrial appendage ligation using #35 AtriClip 4. Graft flow measurements using the Medi-Stim flow meter system 5. Transesophageal echo Implants: #35 AtriClip Anesthesia: GETA Surgeon: Dk Daniel [employer] Supervisor #1: Link Yao [employer] Supervisor #2: Sky Chappell Estimated Blood Loss (ml): 250 Pathology: none sent Condition: critical Disposition: ICU Indications for Procedure: This patient is a 62 y/o F who is a heavy smoker with a hx of htn, hld, mo, and copd who presented with chest pain. Coronary angiography revealed 40% distal left main coronary artery disease, along with proximal lad, ramus and PDA disease. She was diagnosed with NSTEMI and CABG was recommended. Her STS risk of morbidity and mortality was discussed with the patient and she was in agreement to proceed. Operative Findings: DURBIN - LAD Flow 53 ml/min, P.I. 2.7 RA - Ramus Flow 23ml/min, P.I. 2.0 SVG - PDA Flow 3ml/min, P.I. 40.5 Description of Procedure: The patient underwent central line, swan bob catheter, and right radial arterial line placement by the anesthesia team. The patient was brought back to the operating room and placed on the table supine. General endotracheal anesthesia was induced and the patient was prepped and draped in the usual sterile fashion from the chin to the ankles. A time-out was performed and antibiotics were given. A midline incision was made on the chest. This was carried down to bone and a median sternotomy was performed. Hemostasis on the bone was achieved with electrocautery and small amount of bone wax. The left pleura was entered and the left internal thoracic artery was harvested in a skeletonized fashion. Simultaneously another assistants harvested the left radial artery and left greater saphenous vein endoscopically. The patient was systemically heparinized and the DIEGO was transected and placed in a papaverine jacuzzi. A left sided chest tube was placed. The pleura was opened. The pericardium was opened in a reverse T-fashion and a pericardial cradle was created. Stay sutures were placed and a window for the SAMUEL was created in the pericardium avoiding injury to the left phrenic nerve. Next, the left atrial appendage was ligated using a #35mm AtriClip. We then evaluated our targets and conduits. Once the ACT > 250. The octopus stabilizer was used to stabilize the mid to distal LAD. It was opened and 1.5mm flow through was inserted. An end to side anastomosis between the DIEGO and the LAD was sewn using a running 8-0 prolene. The LAD was a good target measuring 1.6mm. Next a deep suture in the oblique sinus was placed to position the heart to expose the lateral wall. The diagonal artery was explored but too small for bypass. The ramus intermedius was identified and stabilized. It was 1.5mm and a good target. It was opened and a 1.5mm flow through was inserted and an end to side anastomosis between the radial artery and ramus intermedius was performed using running 7-0 prolene. Lastly, inferior wall was exposed by placing a suture on the diaphragm near the IVC. The posterior descending artery was identified and stabilized. It appeared diseased and small but seemed like a decent target. It was opened and 1mm flow through was inserted into the vessel. There was a significant amount of [place] flow in the vessel. An end to side anastomosis was created between the PDA and the reverse greater saphenous vein using running 7-0 prolene. The flow through was removed prior to tieing down the anastomosis. Lastly, both the radial artery and GSV were fastened to the ascending aorta using two separate heartstring devices and running 5-0 prolene suture. Graft flows were measured which were excellent in the DIEGO-LAD and RA-OM. There was evidence of competitive flow in the PDA graft. Protamine was given. Hemostasis was secured and a 19F Srikanth and 32F chest tube was placed in the right pleura and mediastinum respectively. Temporary ventricular wires were placed on the inferior RV using 5-0 silk. The sternum was closed with cables. The fascia was closed with Ethibond. The subcutaneous tissues and skin of the sternum and arm were closed with vicryl in layers. All counts were correct and the patient was transported to the ICU without the need for pressors. The patient tolerated the procedure well without any prolonged period of hypotension or instability.
[2023-05-07 13:44] LABS: Glucose,Whole Blood 158 mg/dL (70-110)
[2023-05-07] MEDS: INSULIN REGULAR 100 UNIT in SODIUM CHLORIDE 0.9% 100 ML IV SCH (13:56)
[2023-05-07 13:59] LABS: ABG Base Excess -4.7 mmol/L; ABG HCO3 23 mmol/L (21-25); ABG Oxygen Saturation 99.2 % (94-97); ABG PCO2 51 mmHg (35-45); ABG PH 7.25 (7.35-7.45); ABG PO2 181 mmHg (83-108); ABG TCO2 24 mmol/L (19-24)
[2023-05-07 14:03] LABS: Allen Test Performed? no
[2023-05-07 14:11] LABS: Ionized Calcium 4.3 mg/dL (4.5-5.3)
--- NOTE | 2023-05-07 14:14 | XR ---
EXAMINATION TYPE: XR chest 1V portable DATE OF EXAM: 05/07/2023 1:59 PM CLINICAL INDICATION:Female, 62 years old with history of Post Operative Cardiac Surgery; COMPARISON: Chest radiographs from 05/04/2023. TECHNIQUE: XR chest 1V portable Frontal view of the chest. FINDINGS: Lungs/Pleura: There is no evidence of pleural effusion, focal consolidation, or pneumothorax. Pulmonary vascularity: Unremarkable. Heart/mediastinum: Cardiomediastinal silhouette is unremarkable. Left atrial appendage occlusion jace ce is present. Musculoskeletal: No acute osseous pathology. Other findings: None Lines/Tubes: Endotracheal tube with distal tip 3.9 cm above the geri. Nasogastric tube with its distal tip and side-port projecting under the diaphragm. Bilateral thoracotomy tubes are present without evidence of pneumothorax. There is a [place]-Iftikhar catheter with tip projecting over the spine. Drainage tubes with tips projecting over the mediastinum. IMPRESSION: Postsurgical changes of support tubes in appropriate position.
[2023-05-07] MEDS ORDERED: CALCIUM GLUCONATE IN NACL 1 GM in SALINE 1 100ML.BAG IVPB ONE (14:17)
[2023-05-07 14:18] LABS: Basophils % (A) 0 %; Eosinophils # (A) 0.1 k/uL (0-0.7); Eosinophils % (A) 1 %; HCT 30.8 % (34.0-46.0); HGB 10.3 gm/dL (11.4-16.0); Lymphocytes # (A) 1.3 k/uL (1.0-4.8); Lymphocytes % (A) 13 %; MCHC 33.3 g/dL (31.0-37.0); Mean Platelet Volume 9.7; Monocytes # (A) 0.3 k/uL (0-1.0); Monocytes % (A) 3 %; Neutrophils # (A) 7.7 k/uL (1.3-7.7); Neutrophils % (A) 82 %; Platelet Count 127 k/uL (150-450); RBC 3.42 m/uL (3.80-5.40); RDW 15.9 % (11.5-15.5); WBC 9.5 k/uL (3.8-10.6)
[2023-05-07 14:20] LABS: INR 1.1 (<1.2)
[2023-05-07 14:21] LABS: Partial Thromboplastin Time 24.6 sec (22.0-30.0); Prothrombin Time 12.1 sec (10.0-12.5)
--- NOTE | 2023-05-07 14:23 | P.PN ---
Subjective Progress Note Date: 05/07/23 I am seeing this patient in consultation today 05/06/2023 on the cardiac stepdown unit for preoperative pulmonary clearance in preparation for open heart surgery to be done on May 07. Patient is a 62-year-old white female with past medical history significant for hypertension, hyperlipidemia, diabetes mellitus type 2, asthma, obesity, hypothyroidism. Patient does have a significant familial history of premature coronary artery disease and DE. She does follow with a nurse practitioner out of Dr. Holden Fitzgerald's office. Patient was awakened in the middle the night with severe substernal chest pain starting on 05/04/2023. She presented originally to [facility] and was diagnosed with a non-ST elevation DE. She was also in atrial fibrillation with RVR at that time. She did undergo heart catheterization at outside facility and was found to have severe multivessel coronary artery disease. Patient was then transferred to [facility] for surgical revascularization, which is scheduled this May 07. We were consulted for preoperative pulmonary clearance and postoperative ventilator management during her recovery. A bedside spirometry showed a FEV1 of 0.92 liters or 38%. Based on this, she is at a moderate increased intraoperative risk. Patient states that she takes as needed albuterol and was recently prescribed Breztri by her PCP, but has not started it. She actually denies any history of asthma or COPD. She does report severe seasonal ALLERGIES and is ALLERGIC to pet dander among other things. She also reports a significant smoking history of 1.5 pack per day since she was a teenager. Chest x-ray outside facility reportedly showed no acute cardiopulmonary disease process. Patient is currently sitting up in bed, on 2 L/m nasal cannula, in no acute distress. SpO2 reading 95%. She is currently on IV heparin per protocol and normal saline is infusing at 75 mL per hour. She denies any further chest pain. She denies any pulmonary complaints. Most recent BMP shows sodium 140, potassium 3.8, chloride 110, serum bicarb 24, BUN 8, creatinine 0.65, glucose 120. LFTs mildly elevated. APTT subtherapeutic at 33.8. Patient is currently being monitored on the cardiac stepdown unit and is undergoing an extensive preoperative work up. The patient is seen today 05/07/2023 in follow-up in the intensive care unit. She had recently returned from surgery. She had undergone an off-pump coronary artery bypass grafting 3 utilizing a DURBIN to the LAD, right artery from aorta to ramus intermedius and a saphenous vein graft from the aorta to posterior descending coronary artery. Left atrial ligation using an Atriclip. She is currently sedated on the mechanical ventilator and assist control mode at a rate of 14, tidal volume 400, FiO2 100% and a PEEP of 10. Blood gases revealed a pO2 of 181, pCO2 of 51 and a pH is 7.25. Her respiratory rate was increased to 18. Cardiac output 4.6. Cardiac index 2.4. She is receiving lactated Ringer's at 50 MLS per hour. Sedated with propofol at 20 mcg/kg/m. On a nitroglycerin drip at 5 mg/m. Insulin drip at 1.5 units per hour. Mediastinal and right and left pleural chest tubes are in place. Chest x-ray reviewed. Blood sugar 138. Other labs are pending. Objective - Vital Signs Vital signs: Vital Signs Temp 98.4 F 05/07/23 06:28 Pulse 74 05/07/23 06:28 Resp 18 05/07/23 06:28 BP 135/74 05/07/23 06:28 Pulse Ox 95 05/07/23 06:28 FiO2 60 05/07/23 14:01 Intake & Output 05/06/23 05/07/23 05/07/23 18:59 06:59 18:59 Intake Total 743.58 100 54 Output Total 1200 Balance 743.58 100 -1146 Weight 89.8 kg Intake: IV 100 54 Intake, IV Titration 153.58 Amount Heparin Sod,Pork in 0.45% 153.58 NaCl 25,000 unit In 0.45 % NaCl 1 250ml.bag @ 11. 77 UNITS/KG/HR 10.005 mls /hr IV .Q24H [facility] Rx#: [id number] Oral 590 Output: Urine 1000 Estimated Blood Loss 200 Other: Voiding Method Toilet Toilet # Voids 3 1 - Exam GENERAL EXAM: Intubated, sedated 62-year-old female, on the mechanical ventilator, in no apparent distress. HEAD: Normocephalic. EYES: Sluggish reaction of pupils, equal size. NOSE: Clear with pink turbinates. THROAT: Oral endotracheal and gastric tube secured in place. No erythema or exudates. NECK: Right IJ [place]-Iftikhar catheter in place. No masses, no JVD. CHEST: Sternal dressing dry and intact. Mediastinal, right and left pleural chest tubes in place. Epicardial wires in place. LUNGS: Equal air entry with no crackles, wheeze, rhonchi or dullness. CVS: S1 and S2 normal with no audible murmur, regular rhythm. ABDOMEN: No hepatosplenomegaly, normal bowel sounds, no guarding or rigidity. SPINE: No scoliosis or deformity SKIN: No rashes CENTRAL NERVOUS SYSTEM: No focal deficits, tone is normal in all 4 extremities. EXTREMITIES: Right radial arterial line in place. Left upper extremity with ELENI in place. SCDs to the lower extremities. No clubbing, no cyanosis. Peripheral pulses are intact. - Labs CBC & Chem 7: 05/05/23 03:07 05/05/23 11:21 Labs: Abnormal Lab Results - Last 24 Hours (Table) 05/06/23 05/06/23 05/06/23 Range/Units 11:19 16:30 20:06 ABG pH (7.35-7.45) ABG pCO2 (35-45) mmHg ABG pO2 (83-108) mmHg ABG Total CO2 (19-24) mmol/L ABG O2 Saturation (94-97) % ABG Hematocrit (34.0-46.0) % ABG Ionized Calcium (4.5-5.3) mg/dL ABG Glucose (75-99) mg/dL Hemoglobin (11.4-16.0) gm/dL POC Glucose (mg/dL) 174 H 156 H (70-110) mg/dL Ionized Calcium Mariam (4.5-5.3) mg/dL Arterial Blood Glucose (75-99) mg/dL Crossmatch See Detail 05/07/23 05/07/23 05/07/23 Range/Units 05:09 08:46 09:47 ABG pH 7.34 L (7.35-7.45) ABG pCO2 (35-45) mmHg ABG pO2 75 L 133 H (83-108) mmHg ABG Total CO2 25 H (19-24) mmol/L ABG O2 Saturation 99.2 H (94-97) % ABG Hematocrit 32 L (34.0-46.0) % ABG Ionized Calcium 4.3 L (4.5-5.3) mg/dL ABG Glucose 110 H 120 H (75-99) mg/dL Hemoglobin 10.9 L 10.4 L (11.4-16.0) gm/dL POC Glucose (mg/dL) 129 H (70-110) mg/dL Ionized Calcium Mariam (4.5-5.3) mg/dL Arterial Blood Glucose 110 H 120 H (75-99) mg/dL Crossmatch 05/07/23 05/07/23 05/07/23 Range/Units 09:57 10:37 13:42 ABG pH 7.33 L (7.35-7.45) ABG pCO2 (35-45) mmHg ABG pO2 136 H 202 H (83-108) mmHg ABG Total CO2 25 H (19-24) mmol/L ABG O2 Saturation 99.1 H 99.8 H (94-97) % ABG Hematocrit 32 L 31 L (34.0-46.0) % ABG Ionized Calcium 4.4 L 4.2 L (4.5-5.3) mg/dL ABG Glucose 123 H 138 H (75-99) mg/dL Hemoglobin 10.3 L 10.0 L (11.4-16.0) gm/dL POC Glucose (mg/dL) 158 H (70-110) mg/dL Ionized Calcium Mariam (4.5-5.3) mg/dL Arterial Blood Glucose 123 H 138 H (75-99) mg/dL Crossmatch 05/07/23 05/07/23 Range/Units 13:43 13:57 ABG pH 7.25 L (7.35-7.45) ABG pCO2 51 H (35-45) mmHg ABG pO2 181 H (83-108) mmHg ABG Total CO2 (19-24) mmol/L ABG O2 Saturation 99.2 H (94-97) % ABG Hematocrit (34.0-46.0) % ABG Ionized Calcium (4.5-5.3) mg/dL ABG Glucose (75-99) mg/dL Hemoglobin (11.4-16.0) gm/dL POC Glucose (mg/dL) (70-110) mg/dL Ionized Calcium Mariam 4.3 L (4.5-5.3) mg/dL Arterial Blood Glucose (75-99) mg/dL Crossmatch Microbiology - Last 24 Hours (Table) 05/05/23 12:47 Nasal Screen MRSA/MSSA - Final Nasal Swab Assessment and Plan Assessment: Non-ST elevation myocardial infarction Severe multivessel coronary artery disease, status post off-pump coronary artery bypass grafting 3. Postoperative day #0 Suspected COPD/asthma, stable Hyperlipidemia Hypertension Left internal carotid artery stenosis, estimated at 50-69%, based on carotid duplex ultrasound Diabetes mellitus type 2 Hypothyroidism Obesity with a BMI of 32.2 kg/m Chronic ongoing tobacco dependence, currently smoking 1.5 packs per day Plan: The patient was seen and evaluated Chest x-ray, ABGs, labs and medications reviewed Increase respiratory rate on the mechanical ventilator to 18 Plan for early extubation protocol as tolerated Continue to monitor closely here in the intensive care unit We will continue to follow and make further recommendations based on her clinical status I have personally seen and examined the patient, performed the documentation and the assessment and plan as written. Number of minutes spent on the visit: 15.
[2023-05-07 14:25] LABS: ALT 21 U/L (4-34); AST 25 U/L (14-36); African American GFR (CKD) >90 (>60 ml/min/1.73 sqM); Albumin 3.2 g/dL (3.5-5.0); Alkaline Phosphatase 55 U/L (38-126); Anion Gap 7 mmol/L; Blood Urea Nitrogen 8 mg/dL (7-17); Calcium 7.1 mg/dL (8.4-10.2); Carbon Dioxide 21 mmol/L (22-30); Chloride 112 mmol/L (98-107); Glucose 139 mg/dL (74-99); Magnesium 2.3 mg/dL (1.6-2.3); Non-African American GFR(CKD) >90 (>60 ml/min/1.73 sqM); Potassium 3.7 mmol/L (3.5-5.1); Sodium 140 mmol/L (137-145); Total Protein 4.8 g/dL (6.3-8.2)
[2023-05-07 15:02] LABS: Glucose,Whole Blood 184 mg/dL (70-110)
[2023-05-07] MEDS: POTASSIUM CHLORIDE 10 MEQ in WATER FOR INJECTION 1 100ML.BAG IVPB SCH ×2 (15:54→17:28)
[2023-05-07] MEDS: HEPARIN SODIUM,PORCINE 5,000 UNIT/ML 1 ML VIAL SQ SCH ×2 (15:55→23:51)
[2023-05-07] MEDS ORDERED: IPRATROPIUM-ALBUTEROL 3 ML NEB INHALATION SCH (16:00)
[2023-05-07 16:04] LABS: Glucose,Whole Blood 194 mg/dL (70-110)
[2023-05-07] MEDS: SODIUM CHLORIDE 0.9% 1,000 ML IV SCH (16:30)
--- NOTE | 2023-05-07 16:51 | P.PN ---
Subjective Progress Note Date: 05/07/23 Patient endorsed to [facility] at 8:44AM on 05/05. 62-year-old female with PMH of diabetes mellitus, hypertension, dyslipidemia, hypothyroidism presented to [facility] for chest pain that started Thursday night around 12:30AM. Chest pain described as pressure like, radiating to the bilateral jaws. Cardiac cath showed 90% stenosis of her proximal left anterior descending artery, 40-50% stenosis to her mid left anterior descending coronary, a small diagonal branch #1 with a 80-90% stenosis, a 30-40% stenosis to the mid segment of her right coronary artery and a 90% stenosis to the proximal PDA coronary artery. She was transferred to [facility] for NSTEMI and Cardiothoracic surgery evaluation for CABG. She reports smoking 1 pack of cigarettes daily since 17 years old. Currently workup done at [facility] includes: Vein mapping US. Carotid doppler shows 50-69% stenosis left ICA, < 50% right ICA. LANEY shows borderline abnormal right LANEY, normal left LANEY. 05/06 Patient was seen and examined. Plans for CABG tomorrow. Reports anxiety. No chest pain. Currently on heparin drip. EKG shows sinus rhythm with moderate ST depression. 05/07 Patient was seen and examined post op in the ICU. Underwent CABG today. Intubated rate 18, TV 400, PEEP of 10, FiO2 50%. On Nitro drip 5 mcg/min. Amiodarone drip 1 mg/min. Insulin drip 3 units/hr. NS at 50 cc/hr. Clevidipine drip at 2 mg/hr. CBC shows Hg 10.3 Plt 127. INR 1.1. ABG pH 7.25, pCO2 51. CMP Cl 112, bicarb 21, glucose 139, Ca 7.1, ionized Ca 4.3, albumin 3.2. CXR shows post surgical changes. General: Intubated. ET tube intact. R IJ catheter. Sternal dressing c/d/i. Mediastinal, bilateral pleural tube intact. Epicardial wires. Derm: warm, dry Head: atraumatic, normocephalic, symmetric Eyes: EOMI, no lid lag, anicteric sclera Mouth: no lip lesion, mucus membranes moist Cardiovascular: S1S2 reg, no murmur Lungs: Coarse BS bilateral, no rhonchi, no rales , no accessory muscle use Ext: no gross muscle atrophy, no edema, no contractures Neuro: Unable to determine Psych: Intubated Acute hypoxic respiratory failure NSTEMI status post CABG 05/07 Acute blood loss anemia Transaminitis Hypomagnesemia Hypocalcemia Chronic conditions: diabetes mellitus, hypertension, dyslipidemia, hypothyroidism Based on my assessment of this patient, this patient meets a high complexity level of care. Patient has an acute diagnosis of NSTEMI that poses a threat to life or bodily function. Plans for CABG planned for . Acute hypoxic respiratory failure: Possible extubation today. Propofol weaned off. NSTEMI: Status post CABG 05/07. ASA 81 mg PO QD. Lipitor 20 mg PO QD. Heparin drip at 20.77 units/kg/hr. Metoprolol 50 mg PO BID. Telemetry monitoring. Cardiology and CT surgery on board. Acute blood loss anemia: Expected result of surgery. Daily CBC. Transfuse if Hg < 7. Transaminitis: Mild elevation. [place] hepatic steotosis. Nonobstructive. Hepatitis panel negative. Hypomagnesemia: Given 1 g Mag sulfate IV. Resolved. Replace via protocol. Hypocalcemia: Monitor. I have reviewed the following erp consultant notes: Cardiothoracic surgery, Operative note, Pulm note. I have reviewed the results of the following tests: ABG, CBC, CMP, Ca, ionized Ca, CXR. I have ordered the following tests: I have discussed the care of this patient with the following independent historian: Discussed with RN. I have independently interpreted the following test below: I have discussed the management of this patient with the following physician: Objective - Vital Signs Vital signs: Vital Signs Temp 98.2 F 05/07/23 15:00 Pulse 84 05/07/23 15:00 Resp 18 05/07/23 15:00 BP 125/72 05/07/23 14:45 Pulse Ox 98 05/07/23 15:00 FiO2 50 05/07/23 15:00 Intake & Output 05/06/23 05/07/23 05/07/23 18:59 06:59 18:59 Intake Total 743.58 100 262.988 Output Total 1900 Balance 743.58 100 -1637.012 Weight 89.8 kg Intake: IV 100 240.0 Cardiac Output (0.9 40 Sodium Chloride) Lactated Ringers 1,000 ml 125 @ 50 mls/hr IV .Q20H [facility] Rx#:[id number] Nitroglycerin-D5w Pmx 50 3.0 mg In Dextrose/Water 1 250ml.bag @ 5 MCG/MIN 1.5 mls/hr IV .Q24H [facility] Rx#: [id number] Pressure Bag (0.9 Sodium 18 Chloride) Intake, IV Titration 153.58 22.988 Amount Clevidipine Butyrate 25 0.167 mg In Empty Bag 1 bag @ 1 MG/HR 2 mls/hr IV .Q24H [facility] Rx#:[id number] Heparin Sod,Pork in 0.45% 153.58 NaCl 25,000 unit In 0.45 % NaCl 1 250ml.bag @ 11. 77 UNITS/KG/HR 10.005 mls /hr IV .Q24H [facility] Rx#: [id number] Insulin Regular 100 unit 5.984 In Sodium Chloride 0.9% 100 ml @ Per Protocol IV .Q0M [facility] Rx#:[id number] propofoL 1,000 mg In 16.837 Empty Bag 1 bag @ Titrate IV .Q0M [facility] Rx#: [id number] Oral 590 Output: Chest Tube Drainage 445 Chest Tube Bilateral 390 Lateral Chest Chest Tube Mediastinal 55 Urine 1255 Estimated Blood Loss 200 Other: Voiding Method Toilet Toilet Indwelling Catheter # Voids 3 1 ABP, PAP, CO, CI - Last Documented Arterial Blood Pressure 135/57 Pulmonary Artery Pressure 41/22 Cardiac Output 4.6 Cardiac Index 2.4 - Labs CBC & Chem 7: 05/07/23 13:43 05/07/23 13:43 Labs: Abnormal Lab Results - Last 24 Hours (Table) 05/06/23 05/06/23 05/06/23 Range/Units 11:19 16:30 20:06 RBC (3.80-5.40) m/uL Hgb (11.4-16.0) gm/dL Hct (34.0-46.0) % RDW (11.5-15.5) % Plt Count (150-450) k/uL ABG pH (7.35-7.45) ABG pCO2 (35-45) mmHg ABG pO2 (83-108) mmHg ABG Total CO2 (19-24) mmol/L ABG O2 Saturation (94-97) % ABG Hematocrit (34.0-46.0) % ABG Ionized Calcium (4.5-5.3) mg/dL ABG Glucose (75-99) mg/dL Hemoglobin (11.4-16.0) gm/dL Chloride (98-107) mmol/L Carbon Dioxide (22-30) mmol/L Glucose (74-99) mg/dL POC Glucose (mg/dL) 174 H 156 H (70-110) mg/dL Calcium (8.4-10.2) mg/dL Ionized Calcium Mariam (4.5-5.3) mg/dL Total Protein (6.3-8.2) g/dL Albumin (3.5-5.0) g/dL Arterial Blood Glucose (75-99) mg/dL Crossmatch See Detail 05/07/23 05/07/23 05/07/23 Range/Units 05:09 08:46 09:47 RBC (3.80-5.40) m/uL Hgb (11.4-16.0) gm/dL Hct (34.0-46.0) % RDW (11.5-15.5) % Plt Count (150-450) k/uL ABG pH 7.34 L (7.35-7.45) ABG pCO2 (35-45) mmHg ABG pO2 75 L 133 H (83-108) mmHg ABG Total CO2 25 H (19-24) mmol/L ABG O2 Saturation 99.2 H (94-97) % ABG Hematocrit 32 L (34.0-46.0) % ABG Ionized Calcium 4.3 L (4.5-5.3) mg/dL ABG Glucose 110 H 120 H (75-99) mg/dL Hemoglobin 10.9 L 10.4 L (11.4-16.0) gm/dL Chloride (98-107) mmol/L Carbon Dioxide (22-30) mmol/L Glucose (74-99) mg/dL POC Glucose (mg/dL) 129 H (70-110) mg/dL Calcium (8.4-10.2) mg/dL Ionized Calcium Mariam (4.5-5.3) mg/dL Total Protein (6.3-8.2) g/dL Albumin (3.5-5.0) g/dL Arterial Blood Glucose 110 H 120 H (75-99) mg/dL Crossmatch 05/07/23 05/07/23 05/07/23 Range/Units 09:57 10:37 13:42 RBC (3.80-5.40) m/uL Hgb (11.4-16.0) gm/dL Hct (34.0-46.0) % RDW (11.5-15.5) % Plt Count (150-450) k/uL ABG pH 7.33 L (7.35-7.45) ABG pCO2 (35-45) mmHg ABG pO2 136 H 202 H (83-108) mmHg ABG Total CO2 25 H (19-24) mmol/L ABG O2 Saturation 99.1 H 99.8 H (94-97) % ABG Hematocrit 32 L 31 L (34.0-46.0) % ABG Ionized Calcium 4.4 L 4.2 L (4.5-5.3) mg/dL ABG Glucose 123 H 138 H (75-99) mg/dL Hemoglobin 10.3 L 10.0 L (11.4-16.0) gm/dL Chloride (98-107) mmol/L Carbon Dioxide (22-30) mmol/L Glucose (74-99) mg/dL POC Glucose (mg/dL) 158 H (70-110) mg/dL Calcium (8.4-10.2) mg/dL Ionized Calcium Mariam (4.5-5.3) mg/dL Total Protein (6.3-8.2) g/dL Albumin (3.5-5.0) g/dL Arterial Blood Glucose 123 H 138 H (75-99) mg/dL Crossmatch 05/07/23 05/07/23 05/07/23 Range/Units 13:43 13:43 13:57 RBC 3.42 L (3.80-5.40) m/uL Hgb 10.3 L (11.4-16.0) gm/dL Hct 30.8 L (34.0-46.0) % RDW 15.9 H (11.5-15.5) % Plt Count 127 L (150-450) k/uL ABG pH 7.25 L (7.35-7.45) ABG pCO2 51 H (35-45) mmHg ABG pO2 181 H (83-108) mmHg ABG Total CO2 (19-24) mmol/L ABG O2 Saturation 99.2 H (94-97) % ABG Hematocrit (34.0-46.0) % ABG Ionized Calcium (4.5-5.3) mg/dL ABG Glucose (75-99) mg/dL Hemoglobin (11.4-16.0) gm/dL Chloride 112 H (98-107) mmol/L Carbon Dioxide 21 L (22-30) mmol/L Glucose 139 H (74-99) mg/dL POC Glucose (mg/dL) (70-110) mg/dL Calcium 7.1 L (8.4-10.2) mg/dL Ionized Calcium Mariam 4.3 L (4.5-5.3) mg/dL Total Protein 4.8 L (6.3-8.2) g/dL Albumin 3.2 L (3.5-5.0) g/dL Arterial Blood Glucose (75-99) mg/dL Crossmatch 05/07/23 05/07/23 Range/Units 15:01 16:02 RBC (3.80-5.40) m/uL Hgb (11.4-16.0) gm/dL Hct (34.0-46.0) % RDW (11.5-15.5) % Plt Count (150-450) k/uL ABG pH (7.35-7.45) ABG pCO2 (35-45) mmHg ABG pO2 (83-108) mmHg ABG Total CO2 (19-24) mmol/L ABG O2 Saturation (94-97) % ABG Hematocrit (34.0-46.0) % ABG Ionized Calcium (4.5-5.3) mg/dL ABG Glucose (75-99) mg/dL Hemoglobin (11.4-16.0) gm/dL Chloride (98-107) mmol/L Carbon Dioxide (22-30) mmol/L Glucose (74-99) mg/dL POC Glucose (mg/dL) 184 H 194 H (70-110) mg/dL Calcium (8.4-10.2) mg/dL Ionized Calcium Mariam (4.5-5.3) mg/dL Total Protein (6.3-8.2) g/dL Albumin (3.5-5.0) g/dL Arterial Blood Glucose (75-99) mg/dL Crossmatch Microbiology - Last 24 Hours (Table) 05/05/23 12:47 Nasal Screen MRSA/MSSA - Final Nasal Swab
[2023-05-07 17:02] LABS: Glucose,Whole Blood 201 mg/dL (70-110)
[2023-05-07] MEDS: ACETAMINOPHEN IV (For NPO) 1,000 MG in EMPTY BAG 1 BAG IVPB SCH ×2 (17:21→23:50)
[2023-05-07] MEDS: KETOROLAC 15 MG/ML 1 ML VIAL IVP SCH ×2 (17:35→23:50)
[2023-05-07 18:03] LABS: Glucose,Whole Blood 199 mg/dL (70-110)
[2023-05-07 18:06] LABS: ABG Base Excess -5.5 mmol/L; ABG HCO3 21 mmol/L (21-25); ABG PCO2 40 mmHg (35-45); ABG PH 7.32 (7.35-7.45); ABG PO2 81 mmHg (83-108); ABG TCO2 22 mmol/L (19-24)
[2023-05-07 18:07] LABS: Allen Test Performed? no
[2023-05-07 19:04] LABS: Basophils % (A) 0 %; Eosinophils % (A) 0 %; HCT 34.5 % (34.0-46.0); HGB 11.3 gm/dL (11.4-16.0); Lymphocytes # (A) 0.7 k/uL (1.0-4.8); Lymphocytes % (A) 4 %; MCH 29.6 pg (25.0-35.0); MCHC 32.7 g/dL (31.0-37.0); MCV 90.5 fL (80.0-100.0); Mean Platelet Volume 9.6; Monocytes # (A) 0.6 k/uL (0-1.0); Monocytes % (A) 4 %; Neutrophils # (A) 15.6 k/uL (1.3-7.7); Neutrophils % (A) 92 %; Platelet Count 211 k/uL (150-450); RBC 3.81 m/uL (3.80-5.40); RDW 15.9 % (11.5-15.5); WBC 17.1 k/uL (3.8-10.6)
[2023-05-07] MEDS: IPRATROPIUM-ALBUTEROL 3 ML NEB INHALATION SCH (19:23)
[2023-05-07 19:28] LABS: Glucose,Whole Blood 173 mg/dL (70-110)
[2023-05-07] MEDS: AMIODARONE 450 MG in DEXTROSE 5% IN WATER 250 ML IV SCH ×2 (19:43)
[2023-05-07 20:20] LABS: Glucose,Whole Blood 134 mg/dL (70-110)
--- NOTE | 2023-05-07 20:41 | P.ANPRN ---
Procedure Note - Anesthesia - Invasive Line Right [place] Iftikhar Time Out Performed: Yes Date of Procedure: 05/07/23 Time of Procedure: 07:19 Location of Patient: PreOp Preparation: Sterile Prep, Sterile Dressing Central Line Location: Internal Jugular Ultrasound Used: No Purpose - Visualization and Identification of Vasculature: No Image Stored and Saved: No Narrative: Central line placement per sterile protocol utilized.
[2023-05-07] MEDS: MONTELUKAST 10 MG TAB PO SCH (20:51)
[2023-05-07] MEDS: SENNOSIDES-DOCUSATE SODIUM 1 EACH TAB PO SCH (20:51)
[2023-05-07 21:00] LABS: Glucose,Whole Blood 133 mg/dL (70-110)
[2023-05-07 21:17] LABS: Anisocytosis Slight; HCT 31.8 % (34.0-46.0); HGB 10.8 gm/dL (11.4-16.0); MCH 30.3 pg (25.0-35.0); MCHC 34.1 g/dL (31.0-37.0); MCV 88.9 fL (80.0-100.0); Mean Platelet Volume 9.3; Platelet Count 155 k/uL (150-450); RBC 3.58 m/uL (3.80-5.40); RDW 16.1 % (11.5-15.5); WBC 15.4 k/uL (3.8-10.6)
[2023-05-07] MEDS: IPRATROPIUM-ALBUTEROL 3 ML NEB INHALATION PRN (21:48)
[2023-05-07 22:34] LABS: Glucose,Whole Blood 126 mg/dL (70-110)
[2023-05-07 23:16] LABS: Glucose,Whole Blood 124 mg/dL (70-110)
--- NOTE | 2023-05-07 23:27 | PN ---
PROGRESS NOTE HISTORY: This is a 62-year-old lady who is admitted to hospital with unstable angina and underwent cardiac catheterization by Dr. Abad at [facility] that revealed severe 2-vessel coronary artery disease and was transferred to [facility] for bypass surgery. She just returned from her bypass. She had a DURBIN to LAD, radial artery graft to ramus intermedius, and a venous graft to PDA along with closure of the left atrial appendage. At the time of my evaluation, she is intubated on the ventilator, stable hemodynamically, and remains in sinus rhythm. PHYSICAL EXAM: VITAL SIGNS: Heart rate is 84 beats per minute, blood pressure is 135/57, respiratory rate 18. CHEST: Reveals good air entry bilaterally. HEART: Reveals first and second heart sounds. No gallop. No murmur. ABDOMEN: Soft. EXTREMITIES: Did not reveal any edema. LABORATORY DATA: Showed a hemoglobin of 10.3 and a platelet count of 127, around 130. ASSESSMENT AND PLAN: Coronary artery disease, status post bypass surgery. PLAN: Continue the patient on aspirin, Lipitor, Plavix, and Lopressor. Hopefully when she wakes up, she will be extubated later this evening. MMODL / IJN: [id number] /
[2023-05-08 00:16] LABS: Glucose,Whole Blood 133 mg/dL (70-110)
[2023-05-08] MEDS: IPRATROPIUM-ALBUTEROL 3 ML NEB INHALATION PRN (01:00)
[2023-05-08 01:49] LABS: Glucose,Whole Blood 119 mg/dL (70-110)
[2023-05-08 02:56] LABS: Glucose,Whole Blood 114 mg/dL (70-110)
[2023-05-08 04:18] LABS: Glucose,Whole Blood 134 mg/dL (70-110)
[2023-05-08 04:22] LABS: Basophils % (A) 0 %; Eosinophils % (A) 0 %; HCT 31.9 % (34.0-46.0); HGB 10.4 gm/dL (11.4-16.0); Lymphocytes # (A) 0.9 k/uL (1.0-4.8); Lymphocytes % (A) 7 %; MCH 29.3 pg (25.0-35.0); MCHC 32.6 g/dL (31.0-37.0); MCV 89.8 fL (80.0-100.0); Mean Platelet Volume 9.7; Monocytes # (A) 0.6 k/uL (0-1.0); Monocytes % (A) 5 %; Neutrophils % (A) 87 %; Platelet Count 148 k/uL (150-450); RBC 3.55 m/uL (3.80-5.40); WBC 12.7 k/uL (3.8-10.6)
[2023-05-08 04:28] LABS: Ionized Calcium 4.6 mg/dL (4.5-5.3)
[2023-05-08 04:38] LABS: ALT 18 U/L (4-34); AST 37 U/L (14-36); African American GFR (CKD) >90 (>60 ml/min/1.73 sqM); Albumin 3.1 g/dL (3.5-5.0); Alkaline Phosphatase 52 U/L (38-126); Anion Gap 8 mmol/L; Blood Urea Nitrogen 10 mg/dL (7-17); Calcium 7.6 mg/dL (8.4-10.2); Carbon Dioxide 21 mmol/L (22-30); Chloride 109 mmol/L (98-107); Glucose 120 mg/dL (74-99); Magnesium 2.1 mg/dL (1.6-2.3); Non-African American GFR(CKD) >90 (>60 ml/min/1.73 sqM); Potassium 4.2 mmol/L (3.5-5.1); Sodium 138 mmol/L (137-145); Total Bilirubin 1.5 mg/dL (0.2-1.3); Total Protein 4.9 g/dL (6.3-8.2)
[2023-05-08 06:05] LABS: Glucose,Whole Blood 180 mg/dL (70-110)
[2023-05-08] MEDS: LEVOTHYROXINE 50 MCG TAB PO SCH (06:21)
[2023-05-08] MEDS: KETOROLAC 15 MG/ML 1 ML VIAL IVP SCH ×4 (06:21→23:01)
[2023-05-08] MEDS: INSULIN REGULAR 100 UNIT in SODIUM CHLORIDE 0.9% 100 ML IV SCH (07:03)
[2023-05-08 07:08] LABS: Glucose,Whole Blood 141 mg/dL (70-110)
--- NOTE | 2023-05-08 07:43 | P.PN ---
Subjective Progress Note Date: 05/08/23 Principal diagnosis: Coronary artery disease, NSTEMI this admission, new onset atrial fibrillation. History of hypertension, hyperlipidemia, left internal carotid artery stenosis, type 2 diabetes mellitus, hypothyroid, chronic ongoing tobacco dependence, severe COPD, asthma, chronic back pain, obesity, and family history of premature coronary artery disease. POD #1 off-pump coronary artery bypass graft 3 with left internal thoracic artery in situ to the left anterior descending coronary artery, radial artery from the aorta to the ramus intermedius artery, reverse saphenous vein graft from the aorta to the posterior descending coronary artery, endoscopic left radial and left greater saphenous vein harvest, left atrial appendage ligation using a 35 mm AtriClip, intraoperative graft flow measurements using the [employer] flowmeter system, intraoperative transesophageal echocardiogram performed by anesthesia Postoperative acute blood loss anemia and thrombocytopenia, expected given hemodilution The patient was seen and examined this morning sitting up in a recliner in the intensive care unit in no acute distress. She was successfully extubated last night at 18:14. Remains in sinus rhythm, hemodynamically stable on no inotropes or pressors. States pain is controlled on current medication regimen, denies shortness of breath. Currently on IV amiodarone for A. fib prophylaxis as well as IV nitro for vessel spasm prophylaxis. Remains on 4 L nasal cannula with oxygen saturation in the mid 90s, able to achieve 500-750 mL on incentive spirometry. Right internal jugular Elliston/Cordis, right radial arterial line, mediastinal/right/left pleural chest tubes all remain. No other new concerns. Objective - Vital Signs Vital signs: Vital Signs Temp 98.6 F 05/08/23 04:00 Pulse 97 05/08/23 06:00 Resp 31 H 05/08/23 06:00 BP 117/75 05/08/23 05:15 Pulse Ox 94 L 05/08/23 06:00 FiO2 50 05/07/23 18:00 Intake & Output 05/07/23 05/08/23 05/08/23 18:59 06:59 18:59 Intake Total 489.238 880.748 32.684 Output Total 2295 1260 Balance -1805.762 -379.252 32.684 Weight 92.5 kg Intake: IV 451.5 824.0 Cardiac Output (0.9 70 110 Sodium Chloride) Lactated Ringers 1,000 ml 275 600 @ 50 mls/hr IV .Q20H LUCINDA Rx#:[id number] Nitroglycerin-D5w Pmx 50 7.5 6.0 mg In Dextrose/Water 1 250ml.bag @ 5 MCG/MIN 1.5 mls/hr IV .Q24H LUCINDA Rx#: [id number] Pressure Bag (0.9 Sodium 45 108 Chloride) Intake, IV Titration 37.738 56.748 32.684 Amount Clevidipine Butyrate 25 3.167 3.967 mg In Empty Bag 1 bag @ 1 MG/HR 2 mls/hr IV .Q24H LUCINDA Rx#:[id number] Insulin Regular 100 unit 17.734 52.781 6.834 In Sodium Chloride 0.9% 100 ml @ Per Protocol IV .Q0M LUCINDA Rx#:[id number] Nitroglycerin-D5w Pmx 50 25.85 mg In Dextrose/Water 1 250ml.bag @ 5 MCG/MIN 1.5 mls/hr IV .Q24H LUCINDA Rx#: [id number] propofoL 1,000 mg In 16.837 Empty Bag 1 bag @ Titrate IV .Q0M LUCINDA Rx#: [id number] Output: Chest Tube Drainage 610 820 Chest Tube Bilateral 490 570 Lateral Chest Chest Tube Mediastinal 120 250 Urine 1485 440 Estimated Blood Loss 200 Other: Voiding Method Indwelling Catheter Indwelling Catheter ABP, PAP, CO, CI - Last Documented Arterial Blood Pressure 90/82 Pulmonary Artery Pressure 27/17 Cardiac Output 5.5 Cardiac Index 2.8 - Exam CONSTITUTIONAL: Appears comfortable, cooperative, no acute distress RESPIRATORY: Lungs sounds diminished bilaterally. Respirations even, nonlabored. Currently on 4 L nasal cannula with oxygen saturation 94%. Able to achieve 500-750 mL on incentive spirometry. Strong cough. CARDIOVASCULAR: S1, S2 present. Regular rate and rhythm, sinus rhythm on telemetry. Sternum stable. Palpable peripheral pulses bilaterally. Trace generalized edema present. No calf pain or tenderness noted. Heart hugger in place with patient demonstrating appropriate use. Antiembolism stockings, SCDs present. GASTROINTESTINAL: Abdomen soft, nontender, nondistended. Hypoactive bowel sounds present 4 quadrants. Tolerating clear liquids. Positive belching, negative flatus GENITOURINARY: Mckinney present draining clear, yellow urine. Output overnight 25-50 mL per hour INTEGUMENTARY: Skin is warm and dry with evidence of good perfusion. Anterior chest incision well approximated and covered with dry intact dressing. Left lower extremity EVH as well as left radial artery harvest site well approximated without redness or drainage. NEUROLOGIC: Cranial nerves II through XII intact MUSKULOSKELETAL: Able to move all extremities, strength equal bilaterally PSYCHIATRIC: Alert and oriented to person place and time, appropriate affect, intact judgment and insight INVASIVE LINES AND TUBES: Mediastinal/left/right pleural chest tubes present and connected to wall suction, no air leaks present. Mediastinal tube with 120 mL serosanguineous drainage overnight, 400 mL since surgery. Left/right pleural chest tubes with 360 mL serosanguineous drainage overnight, 1050 mL since surgery. Ventricular epicardial pacemaker wire present, connected to generator, backup rate 50 bpm. Right internal jugular Elliston/Cordis, right radial arterial line present. Last CO/CI 5.5/2.8, PA 28/19, CVP 16. - Allied health notes Allied health notes reviewed: nursing - Labs CBC & Chem 7: 05/08/23 04:15 05/08/23 04:15 Labs: Abnormal Lab Results - Last 24 Hours (Table) 05/06/23 05/07/23 05/07/23 Range/Units 11:19 08:46 09:47 WBC (3.8-10.6) k/uL RBC (3.80-5.40) m/uL Hgb (11.4-16.0) gm/dL Hct (34.0-46.0) % RDW (11.5-15.5) % Plt Count (150-450) k/uL Neutrophils # (1.3-7.7) k/uL Lymphocytes # (1.0-4.8) k/uL ABG pH 7.34 L (7.35-7.45) ABG pCO2 (35-45) mmHg ABG pO2 75 L 133 H (83-108) mmHg ABG Total CO2 25 H (19-24) mmol/L ABG O2 Saturation 99.2 H (94-97) % ABG Hematocrit 32 L (34.0-46.0) % ABG Ionized Calcium 4.3 L (4.5-5.3) mg/dL ABG Glucose 110 H 120 H (75-99) mg/dL Hemoglobin 10.9 L 10.4 L (11.4-16.0) gm/dL Chloride (98-107) mmol/L Carbon Dioxide (22-30) mmol/L Glucose (74-99) mg/dL POC Glucose (mg/dL) (70-110) mg/dL Calcium (8.4-10.2) mg/dL Ionized Calcium Mariam (4.5-5.3) mg/dL Total Bilirubin (0.2-1.3) mg/dL AST (14-36) U/L Total Protein (6.3-8.2) g/dL Albumin (3.5-5.0) g/dL Arterial Blood Glucose 110 H 120 H (75-99) mg/dL Crossmatch See Detail 05/07/23 05/07/23 05/07/23 Range/Units 09:57 10:37 13:42 WBC (3.8-10.6) k/uL RBC (3.80-5.40) m/uL Hgb (11.4-16.0) gm/dL Hct (34.0-46.0) % RDW (11.5-15.5) % Plt Count (150-450) k/uL Neutrophils # (1.3-7.7) k/uL Lymphocytes # (1.0-4.8) k/uL ABG pH 7.33 L (7.35-7.45) ABG pCO2 (35-45) mmHg ABG pO2 136 H 202 H (83-108) mmHg ABG Total CO2 25 H (19-24) mmol/L ABG O2 Saturation 99.1 H 99.8 H (94-97) % ABG Hematocrit 32 L 31 L (34.0-46.0) % ABG Ionized Calcium 4.4 L 4.2 L (4.5-5.3) mg/dL ABG Glucose 123 H 138 H (75-99) mg/dL Hemoglobin 10.3 L 10.0 L (11.4-16.0) gm/dL Chloride (98-107) mmol/L Carbon Dioxide (22-30) mmol/L Glucose (74-99) mg/dL POC Glucose (mg/dL) 158 H (70-110) mg/dL Calcium (8.4-10.2) mg/dL Ionized Calcium Mariam (4.5-5.3) mg/dL Total Bilirubin (0.2-1.3) mg/dL AST (14-36) U/L Total Protein (6.3-8.2) g/dL Albumin (3.5-5.0) g/dL Arterial Blood Glucose 123 H 138 H (75-99) mg/dL Crossmatch 05/07/23 05/07/23 05/07/23 Range/Units 13:43 13:43 13:57 WBC (3.8-10.6) k/uL RBC 3.42 L (3.80-5.40) m/uL Hgb 10.3 L (11.4-16.0) gm/dL Hct 30.8 L (34.0-46.0) % RDW 15.9 H (11.5-15.5) % Plt Count 127 L (150-450) k/uL Neutrophils # (1.3-7.7) k/uL Lymphocytes # (1.0-4.8) k/uL ABG pH 7.25 L (7.35-7.45) ABG pCO2 51 H (35-45) mmHg ABG pO2 181 H (83-108) mmHg ABG Total CO2 (19-24) mmol/L ABG O2 Saturation 99.2 H (94-97) % ABG Hematocrit (34.0-46.0) % ABG Ionized Calcium (4.5-5.3) mg/dL ABG Glucose (75-99) mg/dL Hemoglobin (11.4-16.0) gm/dL Chloride 112 H (98-107) mmol/L Carbon Dioxide 21 L (22-30) mmol/L Glucose 139 H (74-99) mg/dL POC Glucose (mg/dL) (70-110) mg/dL Calcium 7.1 L (8.4-10.2) mg/dL Ionized Calcium Mariam 4.3 L (4.5-5.3) mg/dL Total Bilirubin (0.2-1.3) mg/dL AST (14-36) U/L Total Protein 4.8 L (6.3-8.2) g/dL Albumin 3.2 L (3.5-5.0) g/dL Arterial Blood Glucose (75-99) mg/dL Crossmatch 05/07/23 05/07/23 05/07/23 Range/Units 15:01 16:02 17:01 WBC (3.8-10.6) k/uL RBC (3.80-5.40) m/uL Hgb (11.4-16.0) gm/dL Hct (34.0-46.0) % RDW (11.5-15.5) % Plt Count (150-450) k/uL Neutrophils # (1.3-7.7) k/uL Lymphocytes # (1.0-4.8) k/uL ABG pH (7.35-7.45) ABG pCO2 (35-45) mmHg ABG pO2 (83-108) mmHg ABG Total CO2 (19-24) mmol/L ABG O2 Saturation (94-97) % ABG Hematocrit (34.0-46.0) % ABG Ionized Calcium (4.5-5.3) mg/dL ABG Glucose (75-99) mg/dL Hemoglobin (11.4-16.0) gm/dL Chloride (98-107) mmol/L Carbon Dioxide (22-30) mmol/L Glucose (74-99) mg/dL POC Glucose (mg/dL) 184 H 194 H 201 H (70-110) mg/dL Calcium (8.4-10.2) mg/dL Ionized Calcium Mariam (4.5-5.3) mg/dL Total Bilirubin (0.2-1.3) mg/dL AST (14-36) U/L Total Protein (6.3-8.2) g/dL Albumin (3.5-5.0) g/dL Arterial Blood Glucose (75-99) mg/dL Crossmatch 05/07/23 05/07/23 05/07/23 Range/Units 18:00 18:02 18:04 WBC 17.1 H (3.8-10.6) k/uL RBC (3.80-5.40) m/uL Hgb 11.3 L (11.4-16.0) gm/dL Hct (34.0-46.0) % RDW 15.9 H (11.5-15.5) % Plt Count (150-450) k/uL Neutrophils # 15.6 H (1.3-7.7) k/uL Lymphocytes # 0.7 L (1.0-4.8) k/uL ABG pH 7.32 L (7.35-7.45) ABG pCO2 (35-45) mmHg ABG pO2 81 L (83-108) mmHg ABG Total CO2 (19-24) mmol/L ABG O2 Saturation (94-97) % ABG Hematocrit (34.0-46.0) % ABG Ionized Calcium (4.5-5.3) mg/dL ABG Glucose (75-99) mg/dL Hemoglobin (11.4-16.0) gm/dL Chloride (98-107) mmol/L Carbon Dioxide (22-30) mmol/L Glucose (74-99) mg/dL POC Glucose (mg/dL) 199 H (70-110) mg/dL Calcium (8.4-10.2) mg/dL Ionized Calcium Mariam (4.5-5.3) mg/dL Total Bilirubin (0.2-1.3) mg/dL AST (14-36) U/L Total Protein (6.3-8.2) g/dL Albumin (3.5-5.0) g/dL Arterial Blood Glucose (75-99) mg/dL Crossmatch 05/07/23 05/07/23 05/07/23 Range/Units 19:05 20:18 20:59 WBC (3.8-10.6) k/uL RBC (3.80-5.40) m/uL Hgb (11.4-16.0) gm/dL Hct (34.0-46.0) % RDW (11.5-15.5) % Plt Count (150-450) k/uL Neutrophils # (1.3-7.7) k/uL Lymphocytes # (1.0-4.8) k/uL ABG pH (7.35-7.45) ABG pCO2 (35-45) mmHg ABG pO2 (83-108) mmHg ABG Total CO2 (19-24) mmol/L ABG O2 Saturation (94-97) % ABG Hematocrit (34.0-46.0) % ABG Ionized Calcium (4.5-5.3) mg/dL ABG Glucose (75-99) mg/dL Hemoglobin (11.4-16.0) gm/dL Chloride (98-107) mmol/L Carbon Dioxide (22-30) mmol/L Glucose (74-99) mg/dL POC Glucose (mg/dL) 173 H 134 H 133 H (70-110) mg/dL Calcium (8.4-10.2) mg/dL Ionized Calcium Mariam (4.5-5.3) mg/dL Total Bilirubin (0.2-1.3) mg/dL AST (14-36) U/L Total Protein (6.3-8.2) g/dL Albumin (3.5-5.0) g/dL Arterial Blood Glucose (75-99) mg/dL Crossmatch 05/07/23 05/07/23 05/07/23 Range/Units 21:00 22:32 23:14 WBC 15.4 H (3.8-10.6) k/uL RBC 3.58 L (3.80-5.40) m/uL Hgb 10.8 L (11.4-16.0) gm/dL Hct 31.8 L (34.0-46.0) % RDW 16.1 H (11.5-15.5) % Plt Count (150-450) k/uL Neutrophils # (1.3-7.7) k/uL Lymphocytes # (1.0-4.8) k/uL ABG pH (7.35-7.45) ABG pCO2 (35-45) mmHg ABG pO2 (83-108) mmHg ABG Total CO2 (19-24) mmol/L ABG O2 Saturation (94-97) % ABG Hematocrit (34.0-46.0) % ABG Ionized Calcium (4.5-5.3) mg/dL ABG Glucose (75-99) mg/dL Hemoglobin (11.4-16.0) gm/dL Chloride (98-107) mmol/L Carbon Dioxide (22-30) mmol/L Glucose (74-99) mg/dL POC Glucose (mg/dL) 126 H 124 H (70-110) mg/dL Calcium (8.4-10.2) mg/dL Ionized Calcium Mariam (4.5-5.3) mg/dL Total Bilirubin (0.2-1.3) mg/dL AST (14-36) U/L Total Protein (6.3-8.2) g/dL Albumin (3.5-5.0) g/dL Arterial Blood Glucose (75-99) mg/dL Crossmatch 05/08/23 05/08/23 05/08/23 Range/Units 00:14 01:47 02:53 WBC (3.8-10.6) k/uL RBC (3.80-5.40) m/uL Hgb (11.4-16.0) gm/dL Hct (34.0-46.0) % RDW (11.5-15.5) % Plt Count (150-450) k/uL Neutrophils # (1.3-7.7) k/uL Lymphocytes # (1.0-4.8) k/uL ABG pH (7.35-7.45) ABG pCO2 (35-45) mmHg ABG pO2 (83-108) mmHg ABG Total CO2 (19-24) mmol/L ABG O2 Saturation (94-97) % ABG Hematocrit (34.0-46.0) % ABG Ionized Calcium (4.5-5.3) mg/dL ABG Glucose (75-99) mg/dL Hemoglobin (11.4-16.0) gm/dL Chloride (98-107) mmol/L Carbon Dioxide (22-30) mmol/L Glucose (74-99) mg/dL POC Glucose (mg/dL) 133 H 119 H 114 H (70-110) mg/dL Calcium (8.4-10.2) mg/dL Ionized Calcium Mariam (4.5-5.3) mg/dL Total Bilirubin (0.2-1.3) mg/dL AST (14-36) U/L Total Protein (6.3-8.2) g/dL Albumin (3.5-5.0) g/dL Arterial Blood Glucose (75-99) mg/dL Crossmatch 05/08/23 05/08/23 05/08/23 Range/Units 04:14 04:15 04:15 WBC 12.7 H (3.8-10.6) k/uL RBC 3.55 L (3.80-5.40) m/uL Hgb 10.4 L (11.4-16.0) gm/dL Hct 31.9 L (34.0-46.0) % RDW 16.0 H (11.5-15.5) % Plt Count 148 L (150-450) k/uL Neutrophils # 11.0 H (1.3-7.7) k/uL Lymphocytes # 0.9 L (1.0-4.8) k/uL ABG pH (7.35-7.45) ABG pCO2 (35-45) mmHg ABG pO2 (83-108) mmHg ABG Total CO2 (19-24) mmol/L ABG O2 Saturation (94-97) % ABG Hematocrit (34.0-46.0) % ABG Ionized Calcium (4.5-5.3) mg/dL ABG Glucose (75-99) mg/dL Hemoglobin (11.4-16.0) gm/dL Chloride 109 H (98-107) mmol/L Carbon Dioxide 21 L (22-30) mmol/L Glucose 120 H (74-99) mg/dL POC Glucose (mg/dL) 134 H (70-110) mg/dL Calcium 7.6 L (8.4-10.2) mg/dL Ionized Calcium Mariam (4.5-5.3) mg/dL Total Bilirubin 1.5 H (0.2-1.3) mg/dL AST 37 H (14-36) U/L Total Protein 4.9 L (6.3-8.2) g/dL Albumin 3.1 L (3.5-5.0) g/dL Arterial Blood Glucose (75-99) mg/dL Crossmatch 05/08/23 05/08/23 Range/Units 06:04 07:07 WBC (3.8-10.6) k/uL RBC (3.80-5.40) m/uL Hgb (11.4-16.0) gm/dL Hct (34.0-46.0) % RDW (11.5-15.5) % Plt Count (150-450) k/uL Neutrophils # (1.3-7.7) k/uL Lymphocytes # (1.0-4.8) k/uL ABG pH (7.35-7.45) ABG pCO2 (35-45) mmHg ABG pO2 (83-108) mmHg ABG Total CO2 (19-24) mmol/L ABG O2 Saturation (94-97) % ABG Hematocrit (34.0-46.0) % ABG Ionized Calcium (4.5-5.3) mg/dL ABG Glucose (75-99) mg/dL Hemoglobin (11.4-16.0) gm/dL Chloride (98-107) mmol/L Carbon Dioxide (22-30) mmol/L Glucose (74-99) mg/dL POC Glucose (mg/dL) 180 H 141 H (70-110) mg/dL Calcium (8.4-10.2) mg/dL Ionized Calcium Mariam (4.5-5.3) mg/dL Total Bilirubin (0.2-1.3) mg/dL AST (14-36) U/L Total Protein (6.3-8.2) g/dL Albumin (3.5-5.0) g/dL Arterial Blood Glucose (75-99) mg/dL Crossmatch - Imaging and Cardiology Chest x-ray: image reviewed Assessment and Plan Assessment: Coronary artery disease, NSTEMI this admission, status post off-pump present three-vessel CABG New onset atrial fibrillation, currently sinus, status post left atrial appendage ligation History of hypertension Hyperlipidemia, treated, cholesterol 126, LDL 44, triglycerides 218 Left internal carotid artery stenosis, 50-69% Type 2 diabetes mellitus, preoperative hemoglobin A1c 7.3% Hypothyroid Chronic ongoing tobacco dependence Severe COPD, preoperative FEV1 38% of predicted Asthma Chronic back pain Obesity Family history of premature coronary artery disease Postoperative acute blood loss anemia and thrombocytopenia, expected Plan: Continue to maximize medical therapy with aspirin, statin, Plavix, beta daniel. Will increase beta daniel therapy as tolerated Continue amiodarone for A. fib prophylaxis, will transition to oral and taper weekly Discontinue IV nitro. Will start low-dose calcium channel daniel for radial artery spasm prophylaxis with hold parameters Wean O2 as tolerated. Encourage incentive spirometry use to times every hour while awake, bronchodilators per pulmonology Increase activity, ambulate as tolerated. PT/OT/cardiac rehab consulted Will monitor daily labs and x-rays. Electrolyte replacement per protocol GI/DVT prophylaxis Pain control with current medication regimen Insulin management per internal medicine. Patient is diabetic with preoperative hemoglobin A1c 7.3%. Needs tight blood sugar control, should remain on IV insulin for 48 hours then may transition to subcutaneous per protocol Discontinue Elliston. Connect Cordis to continuous CVP monitoring We'll continue chest tubes for another 24 hours, monitor output Continue Mckinney for another 24 hours, continue to record strict accurate intake and output Daily weights More recommendations to follow
[2023-05-08] MEDS: IPRATROPIUM-ALBUTEROL 3 ML NEB INHALATION SCH ×4 (07:44→20:02)
[2023-05-08] MEDS: SYMBICORT 80-4.5 MCG INHALER INHALATION SCH ×2 (07:44→20:03)
[2023-05-08] MEDS: HEPARIN SODIUM,PORCINE 5,000 UNIT/ML 1 ML VIAL SQ SCH ×3 (07:57→23:01)
[2023-05-08] MEDS: AMIODARONE 200 MG TAB PO SCH ×3 (08:00→20:18)
[2023-05-08] MEDS: ASPIRIN 325 MG TAB PO SCH ×2 (08:00→08:34)
[2023-05-08] MEDS: CLOPIDOGREL 75 MG TAB PO SCH (08:01)
[2023-05-08] MEDS: ATORVASTATIN 40 MG TAB PO SCH ×2 (08:01→08:34)
[2023-05-08] MEDS: METOPROLOL TARTRATE 12.5 MG TAB PO SCH ×4 (08:02→23:01)
[2023-05-08 08:17] LABS: Glucose,Whole Blood 142 mg/dL (70-110)
--- NOTE | 2023-05-08 08:28 | XR ---
EXAMINATION TYPE: XR chest 1V portable DATE OF EXAM: 05/08/2023 Comparison: 05/07/2023 Clinical History: 62-year-old female Post Operative Cardiac Surgery Findings: Right IJ Gunnison-Iftikhar catheter. Tip now somewhat in the periphery right lower lobe pulmonary artery. Nitesh ateral chest tubes are present. No appreciable pneumothorax. Median sternotomy wires with post-CABG c lips and mediastinal drain. Cardiomegaly. Interstitial densities persist. Bandlike opacity left midlu ng, likely a band of atelectasis. Increasing cipop-[id number] left pleural effusion. Impression: 1. Right IJ Gunnison-Iftikhar catheter. The tip is somewhat peripherally located, probably in the right lower lobe pulmonary artery. Position as clinically appropriate. 2. CHF with ongoing pulmonary vascular congestion. Increasing pixsw-so-pdvskvwi left pleural effusion with adjacent atelectasis and/or consolidation. 3. Bilateral chest tubes. No appreciable pneumothorax.
[2023-05-08] MEDS ORDERED: PANTOPRAZOLE 40 MG/10 ML VIAL IVP SCH (09:00)
[2023-05-08] MEDS ORDERED: MAGNESIUM HYDROXIDE 2,400 MG/30 ML CUP PO PRN (09:00)
[2023-05-08] MEDS ORDERED: bisacodyL 10 MG SUPP RECTAL PRN (09:00)
[2023-05-08 09:18] LABS: Glucose,Whole Blood 116 mg/dL (70-110)
--- NOTE | 2023-05-08 09:46 | CONS ---
CONSULTATION HISTORY OF PRESENT ILLNESS: Angela is a 62-year-old lady who is with three-vessel coronary artery disease status post bypass surgery with DURBIN to LAD, radial artery graft to ramus intermedius, and venous graft to the RCA. Today is postop day #1. The patient is doing well, remains in sinus rhythm, stable hemodynamically, and is not on any pressors. She is sitting up, seems comfortable. The patient is currently on Norvasc 2.5 mg daily, aspirin, Lipitor, Plavix, Lopressor 12.5 b.i.d. and is also on amiodarone per CT Surgery. The patient had left atrial appendage clip. PHYSICAL EXAMINATION: GENERAL: Comfortable at rest. VITAL SIGNS: Remains in sinus rhythm, heart rate is 90 beats per minute, blood pressure is 109/72, respiratory rate 18. CHEST: Reveals diminished air entry at the bases. HEART: Reveals first and second heart sounds. No gallop. No murmur. ABDOMEN: Soft. EXTREMITIES: Did not reveal any edema. Peripheral pulses are felt. LABORATORY DATA: Show a hemoglobin of 10.4, platelet count is 148, potassium is 4.2, creatinine is 0.65. ASSESSMENT AND PLAN: Coronary artery disease, status post coronary artery bypass graft postop day #1. The patient is doing well on optimal medical therapy. We will increase her activity. Incentive spirometry. MMODL / IJN: [id number] /
[2023-05-08] MEDS: AMIODARONE 450 MG in DEXTROSE 5% IN WATER 250 ML IV SCH ×2 (09:55)
[2023-05-08 10:12] LABS: Glucose,Whole Blood 117 mg/dL (70-110)
--- NOTE | 2023-05-08 10:14 | P.PN ---
Subjective Progress Note Date: 05/08/23 I am seeing this patient in consultation today 05/06/2023 on the cardiac stepdown unit for preoperative pulmonary clearance in preparation for open heart surgery to be done on May 07. Patient is a 62-year-old white female with past medical history significant for hypertension, hyperlipidemia, diabetes mellitus type 2, asthma, obesity, hypothyroidism. Patient does have a significant familial history of premature coronary artery disease and KS. She does follow with a nurse practitioner out of Dr. Holden Fitzgerald's office. Patient was awakened in the middle the night with severe substernal chest pain starting on 05/04/2023. She presented originally to [facility] and was diagnosed with a non-ST elevation KS. She was also in atrial fibrillation with RVR at that time. She did undergo heart catheterization at outside facility and was found to have severe multivessel coronary artery disease. Patient was then transferred to [facility] for surgical revascularization, which is scheduled this May 07. We were consulted for preoperative pulmonary clearance and postoperative ventilator management during her recovery. A bedside spirometry showed a FEV1 of 0.92 liters or 38%. Based on this, she is at a moderate increased intraoperative risk. Patient states that she takes as needed albuterol and was recently prescribed Breztri by her PCP, but has not started it. She actually denies any history of asthma or COPD. She does report severe seasonal ALLERGIES and is ALLERGIC to pet dander among other things. She also reports a significant smoking history of 1.5 pack per day since she was a teenager. Chest x-ray outside facility reportedly showed no acute cardiopulmonary disease process. Patient is currently sitting up in bed, on 2 L/m nasal cannula, in no acute distress. SpO2 reading 95%. She is currently on IV heparin per protocol and normal saline is infusing at 75 mL per hour. She denies any further chest pain. She denies any pulmonary complaints. Most recent BMP shows sodium 140, potassium 3.8, chloride 110, serum bicarb 24, BUN 8, creatinine 0.65, glucose 120. LFTs mildly elevated. APTT subtherapeutic at 33.8. Patient is currently being monitored on the cardiac stepdown unit and is undergoing an extensive preoperative work up. The patient is seen today 05/07/2023 in follow-up in the intensive care unit. She had recently returned from surgery. She had undergone an off-pump coronary artery bypass grafting 3 utilizing a DURBIN to the LAD, right artery from aorta to ramus intermedius and a saphenous vein graft from the aorta to posterior descending coronary artery. Left atrial ligation using an Atriclip. She is currently sedated on the mechanical ventilator and assist control mode at a rate of 14, tidal volume 400, FiO2 100% and a PEEP of 10. Blood gases revealed a pO2 of 181, pCO2 of 51 and a pH is 7.25. Her respiratory rate was increased to 18. Cardiac output 4.6. Cardiac index 2.4. She is receiving lactated Ringer's at 50 MLS per hour. Sedated with propofol at 20 mcg/kg/m. On a nitroglycerin drip at 5 mg/m. Insulin drip at 1.5 units per hour. Mediastinal and right and left pleural chest tubes are in place. Chest x-ray reviewed. Blood sugar 138. Other labs are pending. The patient is seen today 05/08/2023 in follow-up in the intensive care unit. Postoperative day #1. She is currently awake and alert in no acute distress. Sitting up in a chair at the bedside. She is maintaining good O2 saturations in the 90s on 4 L/m per nasal cannula. She is requiring insulin drip at 6 units per hour. She is on amiodarone at 0.5 mg/m. She has lactated Ringer's at 50 MLS per hour. Cardiac output 4.1. Cardiac index 2.1. Mediastinal and left and right chest tubes remain in place. Right radial arterial line in place. [place]- Iftikhar catheter to the right IJ in place. Epicardial pacer wires in place. Backup pacing at 50. Chest x-ray continues to show some pulmonary vascular congestion with a [id number] left pleural effusion and adjacent atelectasis. No pneumothorax. White count 12.7. Hemoglobin 10.4. Platelets 148. Sodium 138. Potassium 4.2. Bicarb 21. BUN 10. Creatinine 0.65. Glucose 120. AST 37. ALT 18. Albumin 3.1. Ionized calcium 4.6. Magnesium 2.1. She remains on bronchodilators. Working well with the incentive spirometer. Heparin for DVT prophylaxis. She is currently in a -2.1 L balance. Objective - Vital Signs Vital signs: Vital Signs Temp 98.6 F 05/08/23 04:00 Pulse 88 05/08/23 09:00 Resp 25 H 05/08/23 09:00 BP 99/67 05/08/23 09:00 Pulse Ox 95 05/08/23 09:00 FiO2 50 05/07/23 18:00 Intake & Output 05/07/23 05/08/23 05/08/23 18:59 06:59 18:59 Intake Total 489.238 880.748 457.381 Output Total 2295 1260 580 Balance -1805.762 -379.252 -122.619 Weight 92.5 kg Intake: IV 451.5 824.0 197 Cardiac Output (0.9 70 110 40 Sodium Chloride) Lactated Ringers 1,000 ml 275 600 130 @ 20 mls/hr IV .Q24H LUCINDA Rx#:[id number] Nitroglycerin-D5w Pmx 50 7.5 6.0 mg In Dextrose/Water 1 250ml.bag @ 5 MCG/MIN 1.5 mls/hr IV .Q24H LUCINDA Rx#: [id number] Pressure Bag (0.9 Sodium 45 108 27 Chloride) Intake, IV Titration 37.738 56.748 260.381 Amount Amiodarone 450 mg In 214.727 Dextrose 5% in Water 250 ml @ 0.5 MG/MIN 16.667 mls/hr IV .Q15H LUCINDA Rx#: [id number] Clevidipine Butyrate 25 3.167 3.967 mg In Empty Bag 1 bag @ 1 MG/HR 2 mls/hr IV .Q24H LUCINDA Rx#:[id number] Insulin Regular 100 unit 17.734 52.781 19.804 In Sodium Chloride 0.9% 100 ml @ Per Protocol IV .Q0M LUCINDA Rx#:[id number] Nitroglycerin-D5w Pmx 50 25.85 mg In Dextrose/Water 1 250ml.bag @ 5 MCG/MIN 1.5 mls/hr IV .Q24H LUCINDA Rx#: [id number] propofoL 1,000 mg In 16.837 Empty Bag 1 bag @ Titrate IV .Q0M LUCINDA Rx#: [id number] Output: Chest Tube Drainage 610 820 40 Chest Tube Bilateral 490 570 30 Lateral Chest Chest Tube Mediastinal 120 250 10 Urine 1485 440 40 Emesis 500 Estimated Blood Loss 200 Other: Voiding Method Indwelling Catheter Indwelling Catheter ABP, PAP, CO, CI - Last Documented Arterial Blood Pressure 116/57 Pulmonary Artery Pressure 27/14 Cardiac Output 4.1 Cardiac Index 2.1 - Exam GENERAL EXAM: Awake, alert and oriented 62-year-old female, 4 L nasal cannula, up in a chair, in no apparent distress. HEAD: Normocephalic. EYES: Normal reaction of pupils, equal size. NOSE: Clear with pink turbinates. THROAT: No erythema or exudates. NECK: Right IJ [place]Iftikhar catheter in place. No masses, no JVD. CHEST: Sternal dressing dry and intact. Mediastinal, right and left pleural catherine st tubes in place. Epicardial wires in place. LUNGS: Equal air entry with no crackles, wheeze, rhonchi or dullness. CVS: S1 and S2 normal with no audible murmur, regular rhythm. ABDOMEN: No hepatosplenomegaly, normal bowel sounds, no guarding or rigidity. SPINE: No scoliosis or deformity SKIN: No rashes CENTRAL NERVOUS SYSTEM: No focal deficits, tone is normal in all 4 extremities. EXTREMITIES: Right radial arterial line in place. SCDs to the lower extremities. No clubbing, no cyanosis. Peripheral pulses are intact. - Labs CBC & Chem 7: 05/08/23 04:15 05/08/23 04:15 Labs: Abnormal Lab Results - Last 24 Hours (Table) 05/06/23 05/07/23 05/07/23 Range/Units 11:19 08:46 09:47 WBC (3.8-10.6) k/uL RBC (3.80-5.40) m/uL Hgb (11.4-16.0) gm/dL Hct (34.0-46.0) % RDW (11.5-15.5) % Plt Count (150-450) k/uL Neutrophils # (1.3-7.7) k/uL Lymphocytes # (1.0-4.8) k/uL ABG pH 7.34 L (7.35-7.45) ABG pCO2 (35-45) mmHg ABG pO2 75 L 133 H (83-108) mmHg ABG Total CO2 25 H (19-24) mmol/L ABG O2 Saturation 99.2 H (94-97) % ABG Hematocrit 32 L (34.0-46.0) % ABG Ionized Calcium 4.3 L (4.5-5.3) mg/dL ABG Glucose 110 H 120 H (75-99) mg/dL Hemoglobin 10.9 L 10.4 L (11.4-16.0) gm/dL Chloride (98-107) mmol/L Carbon Dioxide (22-30) mmol/L Glucose (74-99) mg/dL POC Glucose (mg/dL) (70-110) mg/dL Calcium (8.4-10.2) mg/dL Ionized Calcium Mariam (4.5-5.3) mg/dL Total Bilirubin (0.2-1.3) mg/dL AST (14-36) U/L Total Protein (6.3-8.2) g/dL Albumin (3.5-5.0) g/dL Arterial Blood Glucose 110 H 120 H (75-99) mg/dL Crossmatch See Detail 05/07/23 05/07/23 05/07/23 Range/Units 09:57 10:37 13:42 WBC (3.8-10.6) k/uL RBC (3.80-5.40) m/uL Hgb (11.4-16.0) gm/dL Hct (34.0-46.0) % RDW (11.5-15.5) % Plt Count (150-450) k/uL Neutrophils # (1.3-7.7) k/uL Lymphocytes # (1.0-4.8) k/uL ABG pH 7.33 L (7.35-7.45) ABG pCO2 (35-45) mmHg ABG pO2 136 H 202 H (83-108) mmHg ABG Total CO2 25 H (19-24) mmol/L ABG O2 Saturation 99.1 H 99.8 H (94-97) % ABG Hematocrit 32 L 31 L (34.0-46.0) % ABG Ionized Calcium 4.4 L 4.2 L (4.5-5.3) mg/dL ABG Glucose 123 H 138 H (75-99) mg/dL Hemoglobin 10.3 L 10.0 L (11.4-16.0) gm/dL Chloride (98-107) mmol/L Carbon Dioxide (22-30) mmol/L Glucose (74-99) mg/dL POC Glucose (mg/dL) 158 H (70-110) mg/dL Calcium (8.4-10.2) mg/dL Ionized Calcium Mariam (4.5-5.3) mg/dL Total Bilirubin (0.2-1.3) mg/dL AST (14-36) U/L Total Protein (6.3-8.2) g/dL Albumin (3.5-5.0) g/dL Arterial Blood Glucose 123 H 138 H (75-99) mg/dL Crossmatch 05/07/23 05/07/23 05/07/23 Range/Units 13:43 13:43 13:57 WBC (3.8-10.6) k/uL RBC 3.42 L (3.80-5.40) m/uL Hgb 10.3 L (11.4-16.0) gm/dL Hct 30.8 L (34.0-46.0) % RDW 15.9 H (11.5-15.5) % Plt Count 127 L (150-450) k/uL Neutrophils # (1.3-7.7) k/uL Lymphocytes # (1.0-4.8) k/uL ABG pH 7.25 L (7.35-7.45) ABG pCO2 51 H (35-45) mmHg ABG pO2 181 H (83-108) mmHg ABG Total CO2 (19-24) mmol/L ABG O2 Saturation 99.2 H (94-97) % ABG Hematocrit (34.0-46.0) % ABG Ionized Calcium (4.5-5.3) mg/dL ABG Glucose (75-99) mg/dL Hemoglobin (11.4-16.0) gm/dL Chloride 112 H (98-107) mmol/L Carbon Dioxide 21 L (22-30) mmol/L Glucose 139 H (74-99) mg/dL POC Glucose (mg/dL) (70-110) mg/dL Calcium 7.1 L (8.4-10.2) mg/dL Ionized Calcium Mariam 4.3 L (4.5-5.3) mg/dL Total Bilirubin (0.2-1.3) mg/dL AST (14-36) U/L Total Protein 4.8 L (6.3-8.2) g/dL Albumin 3.2 L (3.5-5.0) g/dL Arterial Blood Glucose (75-99) mg/dL Crossmatch 05/07/23 05/07/23 05/07/23 Range/Units 15:01 16:02 17:01 WBC (3.8-10.6) k/uL RBC (3.80-5.40) m/uL Hgb (11.4-16.0) gm/dL Hct (34.0-46.0) % RDW (11.5-15.5) % Plt Count (150-450) k/uL Neutrophils # (1.3-7.7) k/uL Lymphocytes # (1.0-4.8) k/uL ABG pH (7.35-7.45) ABG pCO2 (35-45) mmHg ABG pO2 (83-108) mmHg ABG Total CO2 (19-24) mmol/L ABG O2 Saturation (94-97) % ABG Hematocrit (34.0-46.0) % ABG Ionized Calcium (4.5-5.3) mg/dL ABG Glucose (75-99) mg/dL Hemoglobin (11.4-16.0) gm/dL Chloride (98-107) mmol/L Carbon Dioxide (22-30) mmol/L Glucose (74-99) mg/dL POC Glucose (mg/dL) 184 H 194 H 201 H (70-110) mg/dL Calcium (8.4-10.2) mg/dL Ionized Calcium Mariam (4.5-5.3) mg/dL Total Bilirubin (0.2-1.3) mg/dL AST (14-36) U/L Total Protein (6.3-8.2) g/dL Albumin (3.5-5.0) g/dL Arterial Blood Glucose (75-99) mg/dL Crossmatch 05/07/23 05/07/23 05/07/23 Range/Units 18:00 18:02 18:04 WBC 17.1 H (3.8-10.6) k/uL RBC (3.80-5.40) m/uL Hgb 11.3 L (11.4-16.0) gm/dL Hct (34.0-46.0) % RDW 15.9 H (11.5-15.5) % Plt Count (150-450) k/uL Neutrophils # 15.6 H (1.3-7.7) k/uL Lymphocytes # 0.7 L (1.0-4.8) k/uL ABG pH 7.32 L (7.35-7.45) ABG pCO2 (35-45) mmHg ABG pO2 81 L (83-108) mmHg ABG Total CO2 (19-24) mmol/L ABG O2 Saturation (94-97) % ABG Hematocrit (34.0-46.0) % ABG Ionized Calcium (4.5-5.3) mg/dL ABG Glucose (75-99) mg/dL Hemoglobin (11.4-16.0) gm/dL Chloride (98-107) mmol/L Carbon Dioxide (22-30) mmol/L Glucose (74-99) mg/dL POC Glucose (mg/dL) 199 H (70-110) mg/dL Calcium (8.4-10.2) mg/dL Ionized Calcium Mariam (4.5-5.3) mg/dL Total Bilirubin (0.2-1.3) mg/dL AST (14-36) U/L Total Protein (6.3-8.2) g/dL Albumin (3.5-5.0) g/dL Arterial Blood Glucose (75-99) mg/dL Crossmatch 05/07/23 05/07/23 05/07/23 Range/Units 19:05 20:18 20:59 WBC (3.8-10.6) k/uL RBC (3.80-5.40) m/uL Hgb (11.4-16.0) gm/dL Hct (34.0-46.0) % RDW (11.5-15.5) % Plt Count (150-450) k/uL Neutrophils # (1.3-7.7) k/uL Lymphocytes # (1.0-4.8) k/uL ABG pH (7.35-7.45) ABG pCO2 (35-45) mmHg ABG pO2 (83-108) mmHg ABG Total CO2 (19-24) mmol/L ABG O2 Saturation (94-97) % ABG Hematocrit (34.0-46.0) % ABG Ionized Calcium (4.5-5.3) mg/dL ABG Glucose (75-99) mg/dL Hemoglobin (11.4-16.0) gm/dL Chloride (98-107) mmol/L Carbon Dioxide (22-30) mmol/L Glucose (74-99) mg/dL POC Glucose (mg/dL) 173 H 134 H 133 H (70-110) mg/dL Calcium (8.4-10.2) mg/dL Ionized Calcium Mariam (4.5-5.3) mg/dL Total Bilirubin (0.2-1.3) mg/dL AST (14-36) U/L Total Protein (6.3-8.2) g/dL Albumin (3.5-5.0) g/dL Arterial Blood Glucose (75-99) mg/dL Crossmatch 05/07/23 05/07/23 05/07/23 Range/Units 21:00 22:32 23:14 WBC 15.4 H (3.8-10.6) k/uL RBC 3.58 L (3.80-5.40) m/uL Hgb 10.8 L (11.4-16.0) gm/dL Hct 31.8 L (34.0-46.0) % RDW 16.1 H (11.5-15.5) % Plt Count (150-450) k/uL Neutrophils # (1.3-7.7) k/uL Lymphocytes # (1.0-4.8) k/uL ABG pH (7.35-7.45) ABG pCO2 (35-45) mmHg ABG pO2 (83-108) mmHg ABG Total CO2 (19-24) mmol/L ABG O2 Saturation (94-97) % ABG Hematocrit (34.0-46.0) % ABG Ionized Calcium (4.5-5.3) mg/dL ABG Glucose (75-99) mg/dL Hemoglobin (11.4-16.0) gm/dL Chloride (98-107) mmol/L Carbon Dioxide (22-30) mmol/L Glucose (74-99) mg/dL POC Glucose (mg/dL) 126 H 124 H (70-110) mg/dL Calcium (8.4-10.2) mg/dL Ionized Calcium Mariam (4.5-5.3) mg/dL Total Bilirubin (0.2-1.3) mg/dL AST (14-36) U/L Total Protein (6.3-8.2) g/dL Albumin (3.5-5.0) g/dL Arterial Blood Glucose (75-99) mg/dL Crossmatch 05/08/23 05/08/23 05/08/23 Range/Units 00:14 01:47 02:53 WBC (3.8-10.6) k/uL RBC (3.80-5.40) m/uL Hgb (11.4-16.0) gm/dL Hct (34.0-46.0) % RDW (11.5-15.5) % Plt Count (150-450) k/uL Neutrophils # (1.3-7.7) k/uL Lymphocytes # (1.0-4.8) k/uL ABG pH (7.35-7.45) ABG pCO2 (35-45) mmHg ABG pO2 (83-108) mmHg ABG Total CO2 (19-24) mmol/L ABG O2 Saturation (94-97) % ABG Hematocrit (34.0-46.0) % ABG Ionized Calcium (4.5-5.3) mg/dL ABG Glucose (75-99) mg/dL Hemoglobin (11.4-16.0) gm/dL Chloride (98-107) mmol/L Carbon Dioxide (22-30) mmol/L Glucose (74-99) mg/dL POC Glucose (mg/dL) 133 H 119 H 114 H (70-110) mg/dL Calcium (8.4-10.2) mg/dL Ionized Calcium Mariam (4.5-5.3) mg/dL Total Bilirubin (0.2-1.3) mg/dL AST (14-36) U/L Total Protein (6.3-8.2) g/dL Albumin (3.5-5.0) g/dL Arterial Blood Glucose (75-99) mg/dL Crossmatch 05/08/23 05/08/23 05/08/23 Range/Units 04:14 04:15 04:15 WBC 12.7 H (3.8-10.6) k/uL RBC 3.55 L (3.80-5.40) m/uL Hgb 10.4 L (11.4-16.0) gm/dL Hct 31.9 L (34.0-46.0) % RDW 16.0 H (11.5-15.5) % Plt Count 148 L (150-450) k/uL Neutrophils # 11.0 H (1.3-7.7) k/uL Lymphocytes # 0.9 L (1.0-4.8) k/uL ABG pH (7.35-7.45) ABG pCO2 (35-45) mmHg ABG pO2 (83-108) mmHg ABG Total CO2 (19-24) mmol/L ABG O2 Saturation (94-97) % ABG Hematocrit (34.0-46.0) % ABG Ionized Calcium (4.5-5.3) mg/dL ABG Glucose (75-99) mg/dL Hemoglobin (11.4-16.0) gm/dL Chloride 109 H (98-107) mmol/L Carbon Dioxide 21 L (22-30) mmol/L Glucose 120 H (74-99) mg/dL POC Glucose (mg/dL) 134 H (70-110) mg/dL Calcium 7.6 L (8.4-10.2) mg/dL Ionized Calcium Mariam (4.5-5.3) mg/dL Total Bilirubin 1.5 H (0.2-1.3) mg/dL AST 37 H (14-36) U/L Total Protein 4.9 L (6.3-8.2) g/dL Albumin 3.1 L (3.5-5.0) g/dL Arterial Blood Glucose (75-99) mg/dL Crossmatch 05/08/23 05/08/23 05/08/23 Range/Units 06:04 07:07 08:08 WBC (3.8-10.6) k/uL RBC (3.80-5.40) m/uL Hgb (11.4-16.0) gm/dL Hct (34.0-46.0) % RDW (11.5-15.5) % Plt Count (150-450) k/uL Neutrophils # (1.3-7.7) k/uL Lymphocytes # (1.0-4.8) k/uL ABG pH (7.35-7.45) ABG pCO2 (35-45) mmHg ABG pO2 (83-108) mmHg ABG Total CO2 (19-24) mmol/L ABG O2 Saturation (94-97) % ABG Hematocrit (34.0-46.0) % ABG Ionized Calcium (4.5-5.3) mg/dL ABG Glucose (75-99) mg/dL Hemoglobin (11.4-16.0) gm/dL Chloride (98-107) mmol/L Carbon Dioxide (22-30) mmol/L Glucose (74-99) mg/dL POC Glucose (mg/dL) 180 H 141 H 142 H (70-110) mg/dL Calcium (8.4-10.2) mg/dL Ionized Calcium Mariam (4.5-5.3) mg/dL Total Bilirubin (0.2-1.3) mg/dL AST (14-36) U/L Total Protein (6.3-8.2) g/dL Albumin (3.5-5.0) g/dL Arterial Blood Glucose (75-99) mg/dL Crossmatch 05/08/23 Range/Units 09:17 WBC (3.8-10.6) k/uL RBC (3.80-5.40) m/uL Hgb (11.4-16.0) gm/dL Hct (34.0-46.0) % RDW (11.5-15.5) % Plt Count (150-450) k/uL Neutrophils # (1.3-7.7) k/uL Lymphocytes # (1.0-4.8) k/uL ABG pH (7.35-7.45) ABG pCO2 (35-45) mmHg ABG pO2 (83-108) mmHg ABG Total CO2 (19-24) mmol/L ABG O2 Saturation (94-97) % ABG Hematocrit (34.0-46.0) % ABG Ionized Calcium (4.5-5.3) mg/dL ABG Glucose (75-99) mg/dL Hemoglobin (11.4-16.0) gm/dL Chloride (98-107) mmol/L Carbon Dioxide (22-30) mmol/L Glucose (74-99) mg/dL POC Glucose (mg/dL) 116 H (70-110) mg/dL Calcium (8.4-10.2) mg/dL Ionized Calcium Mariam (4.5-5.3) mg/dL Total Bilirubin (0.2-1.3) mg/dL AST (14-36) U/L Total Protein (6.3-8.2) g/dL Albumin (3.5-5.0) g/dL Arterial Blood Glucose (75-99) mg/dL Crossmatch Assessment and Plan Assessment: Non-ST elevation myocardial infarction Severe multivessel coronary artery disease, status post off-pump coronary artery bypass grafting 3. Postoperative day #1 Suspected COPD/asthma, stable Hyperlipidemia Hypertension Left internal carotid artery stenosis, estimated at 50-69%, based on carotid duplex ultrasound Diabetes mellitus type 2 Hypothyroidism Obesity with a BMI of 32.2 kg/m Chronic ongoing tobacco dependence, currently smoking 1.5 packs per day Plan: The patient was seen and evaluated Chest x-ray, labs and medications reviewed Stable and on 4 L Continue to work well with the incentive spirometer Increase her activity as tolerated We will continue to follow I have personally seen and examined the patient, performed the documentation and the assessment and plan as written. Number of minutes spent on the visit: 10.
[2023-05-08 11:14] LABS: Glucose,Whole Blood 114 mg/dL (70-110)
[2023-05-08] MEDS: amLODIPine 2.5 MG TAB PO SCH (12:09)
[2023-05-08 13:26] LABS: Glucose,Whole Blood 164 mg/dL (70-110)
[2023-05-08 14:09] LABS: Glucose,Whole Blood 199 mg/dL (70-110)
[2023-05-08 14:28] VITALS: BMI 34.9
--- NOTE | 2023-05-08 14:55 | P.PN ---
Subjective Progress Note Date: 05/08/23 Patient endorsed to [facility] at 8:44AM on 05/05. 62-year-old female with PMH of diabetes mellitus, hypertension, dyslipidemia, hypothyroidism presented to [facility] for chest pain that started Thursday night around 12:30AM. Chest pain described as pressure like, radiating to the bilateral jaws. Cardiac cath showed 90% stenosis of her proximal left anterior descending artery, 40-50% stenosis to her mid left anterior descending coronary, a small diagonal branch #1 with a 80-90% stenosis, a 30-40% stenosis to the mid segment of her right coronary artery and a 90% stenosis to the proximal PDA coronary artery. She was transferred to [facility] for NSTEMI and Cardiothoracic surgery evaluation for CABG. She reports smoking 1 pack of cigarettes daily since 17 years old. Currently workup done at [facility] includes: Vein mapping US. Carotid doppler shows 50-69% stenosis left ICA, < 50% right ICA. LANEY shows borderline abnormal right LANEY, normal left LANEY. 05/06 Patient was seen and examined. Plans for CABG tomorrow. Reports anxiety. No chest pain. Currently on heparin drip. EKG shows sinus rhythm with moderate ST depression. 05/07 Patient was seen and examined post op in the ICU. Underwent CABG today. Intubated rate 18, TV 400, PEEP of 10, FiO2 50%. On Nitro drip 5 mcg/min. Amiodarone drip 1 mg/min. Insulin drip 3 units/hr. NS at 50 cc/hr. Clevidipine drip at 2 mg/hr. CBC shows Hg 10.3 Plt 127. INR 1.1. ABG pH 7.25, pCO2 51. CMP Cl 112, bicarb 21, glucose 139, Ca 7.1, ionized Ca 4.3, albumin 3.2. CXR shows post surgical changes. 05/08 Patient was seen and examined. Extubated successfully 05/07. Complains of some chest soreness and N/V. On clear liquid diet. Currently on NS at 30 cc/hr and Amiodarone drip at 0.5 mg/min. Pulmonology and CT surgery note reviewed. CBC shows WBC 12.7, Hg 10.4, Plt 148. CMP Cl 109, bicarb 21, glucose 120, Ca 7.6, T. Bili 1.5, AST 37, albumin 3.1. CXR shows right IJ, pulmonary vascular congestion, bilateral chest tube. General: R IJ catheter. Sternal dressing c/d/i. Mediastinal, bilateral pleural tube intact. Epicardial wires. Derm: warm, dry Head: atraumatic, normocephalic, symmetric Eyes: EOMI, no lid lag, anicteric sclera Mouth: no lip lesion, mucus membranes moist Cardiovascular: S1S2 reg, no murmur Lungs: Coarse BS bilateral, no rhonchi, no rales , no accessory muscle use Ext: no gross muscle atrophy, no edema, no contractures Neuro: Unable to determine Psych: Intubated Acute hypoxic respiratory failure NSTEMI status post CABG 05/07 Acute blood loss anemia Transaminitis Hypomagnesemia Hypocalcemia Chronic conditions: diabetes mellitus, hypertension, dyslipidemia, hypothyroidism Based on my assessment of this patient, this patient meets a high complexity level of care. Patient has an acute diagnosis of NSTEMI that poses a threat to life or bodily function. Acute hypoxic respiratory failure: Wean O2. NSTEMI: Status post CABG 05/07. ASA 81 mg PO QD. Lipitor 40 mg PO QD. Plavix 75 mg PO QD. Metoprolol 12.5 mg PO BID. Telemetry monitoring. Cardiology and CT surgery on board. Acute blood loss anemia: Expected result of surgery. Daily CBC. Transfuse if Hg < 7. Transaminitis: Mild elevation. Likley hepatic steotosis. Nonobstructive. Hepatitis panel negative. Hypomagnesemia: Given 1 g Mag sulfate IV. Resolved. Replace via protocol. Hypocalcemia: Monitor. I have reviewed the following security sales consultant notes: Cardiothoracic surgery, Pulm note. I have reviewed the results of the following tests: CBC, CMP. I have ordered the following tests: I have discussed the care of this patient with the following independent historian: Discussed with RN. I have independently interpreted the following test below: CXR as above. I have discussed the management of this patient with the following physician: Objective - Vital Signs Vital signs: Vital Signs Temp 99 F 05/08/23 12:00 Pulse 92 05/08/23 13:00 Resp 13 05/08/23 13:00 BP 104/62 05/08/23 13:00 Pulse Ox 95 05/08/23 13:00 FiO2 50 05/07/23 18:00 Intake & Output 05/07/23 05/08/23 05/08/23 18:59 06:59 18:59 Intake Total 489.238 880.748 639.513 Output Total 2295 1260 903 Balance -1805.762 -379.252 -263.487 Weight 92.5 kg 92.5 kg Intake: IV 451.5 824.0 365 Cardiac Output (0.9 70 110 40 Sodium Chloride) Lactated Ringers 1,000 ml 275 600 280 @ 20 mls/hr IV .Q24H [facility] Rx#:[id number] Nitroglycerin-D5w Pmx 50 7.5 6.0 mg In Dextrose/Water 1 250ml.bag @ 5 MCG/MIN 1.5 mls/hr IV .Q24H [facility] Rx#: [id number] Pressure Bag (0.9 Sodium 45 108 45 Chloride) Intake, IV Titration 37.738 56.748 274.513 Amount Amiodarone 450 mg In 214.727 Dextrose 5% in Water 250 ml @ 0.5 MG/MIN 16.667 mls/hr IV .Q15H [facility] Rx#: [id number] Clevidipine Butyrate 25 3.167 3.967 mg In Empty Bag 1 bag @ 1 MG/HR 2 mls/hr IV .Q24H [facility] Rx#:[id number] Insulin Regular 100 unit 17.734 52.781 33.936 In Sodium Chloride 0.9% 100 ml @ Per Protocol IV .Q0M [facility] Rx#:[id number] Nitroglycerin-D5w Pmx 50 25.85 mg In Dextrose/Water 1 250ml.bag @ 5 MCG/MIN 1.5 mls/hr IV .Q24H [facility] Rx#: [id number] propofoL 1,000 mg In 16.837 Empty Bag 1 bag @ Titrate IV .Q0M [facility] Rx#: [id number] Output: Chest Tube Drainage 610 820 230 Chest Tube Bilateral 490 570 150 Lateral Chest Chest Tube Mediastinal 120 250 80 Urine 1485 440 173 Emesis 500 Estimated Blood Loss 200 Other: Voiding Method Indwelling Catheter Indwelling Catheter Indwelling Catheter ABP, PAP, CO, CI - Last Documented Arterial Blood Pressure 116/57 Pulmonary Artery Pressure 27/14 Cardiac Output 4.1 Cardiac Index 2.1 - Labs CBC & Chem 7: 05/08/23 04:15 05/08/23 04:15 Labs: Abnormal Lab Results - Last 24 Hours (Table) 05/06/23 05/07/23 05/07/23 Range/Units 11:19 15:01 16:02 WBC (3.8-10.6) k/uL RBC (3.80-5.40) m/uL Hgb (11.4-16.0) gm/dL Hct (34.0-46.0) % RDW (11.5-15.5) % Plt Count (150-450) k/uL Neutrophils # (1.3-7.7) k/uL Lymphocytes # (1.0-4.8) k/uL ABG pH (7.35-7.45) ABG pO2 (83-108) mmHg Chloride (98-107) mmol/L Carbon Dioxide (22-30) mmol/L Glucose (74-99) mg/dL POC Glucose (mg/dL) 184 H 194 H (70-110) mg/dL Calcium (8.4-10.2) mg/dL Total Bilirubin (0.2-1.3) mg/dL AST (14-36) U/L Total Protein (6.3-8.2) g/dL Albumin (3.5-5.0) g/dL Crossmatch See Detail 05/07/23 05/07/23 05/07/23 Range/Units 17:01 18:00 18:02 WBC 17.1 H (3.8-10.6) k/uL RBC (3.80-5.40) m/uL Hgb 11.3 L (11.4-16.0) gm/dL Hct (34.0-46.0) % RDW 15.9 H (11.5-15.5) % Plt Count (150-450) k/uL Neutrophils # 15.6 H (1.3-7.7) k/uL Lymphocytes # 0.7 L (1.0-4.8) k/uL ABG pH (7.35-7.45) ABG pO2 (83-108) mmHg Chloride (98-107) mmol/L Carbon Dioxide (22-30) mmol/L Glucose (74-99) mg/dL POC Glucose (mg/dL) 201 H 199 H (70-110) mg/dL Calcium (8.4-10.2) mg/dL Total Bilirubin (0.2-1.3) mg/dL AST (14-36) U/L Total Protein (6.3-8.2) g/dL Albumin (3.5-5.0) g/dL Crossmatch 05/07/23 05/07/23 05/07/23 Range/Units 18:04 19:05 20:18 WBC (3.8-10.6) k/uL RBC (3.80-5.40) m/uL Hgb (11.4-16.0) gm/dL Hct (34.0-46.0) % RDW (11.5-15.5) % Plt Count (150-450) k/uL Neutrophils # (1.3-7.7) k/uL Lymphocytes # (1.0-4.8) k/uL ABG pH 7.32 L (7.35-7.45) ABG pO2 81 L (83-108) mmHg Chloride (98-107) mmol/L Carbon Dioxide (22-30) mmol/L Glucose (74-99) mg/dL POC Glucose (mg/dL) 173 H 134 H (70-110) mg/dL Calcium (8.4-10.2) mg/dL Total Bilirubin (0.2-1.3) mg/dL AST (14-36) U/L Total Protein (6.3-8.2) g/dL Albumin (3.5-5.0) g/dL Crossmatch 05/07/23 05/07/23 05/07/23 Range/Units 20:59 21:00 22:32 WBC 15.4 H (3.8-10.6) k/uL RBC 3.58 L (3.80-5.40) m/uL Hgb 10.8 L (11.4-16.0) gm/dL Hct 31.8 L (34.0-46.0) % RDW 16.1 H (11.5-15.5) % Plt Count (150-450) k/uL Neutrophils # (1.3-7.7) k/uL Lymphocytes # (1.0-4.8) k/uL ABG pH (7.35-7.45) ABG pO2 (83-108) mmHg Chloride (98-107) mmol/L Carbon Dioxide (22-30) mmol/L Glucose (74-99) mg/dL POC Glucose (mg/dL) 133 H 126 H (70-110) mg/dL Calcium (8.4-10.2) mg/dL Total Bilirubin (0.2-1.3) mg/dL AST (14-36) U/L Total Protein (6.3-8.2) g/dL Albumin (3.5-5.0) g/dL Crossmatch 05/07/23 05/08/23 05/08/23 Range/Units 23:14 00:14 01:47 WBC (3.8-10.6) k/uL RBC (3.80-5.40) m/uL Hgb (11.4-16.0) gm/dL Hct (34.0-46.0) % RDW (11.5-15.5) % Plt Count (150-450) k/uL Neutrophils # (1.3-7.7) k/uL Lymphocytes # (1.0-4.8) k/uL ABG pH (7.35-7.45) ABG pO2 (83-108) mmHg Chloride (98-107) mmol/L Carbon Dioxide (22-30) mmol/L Glucose (74-99) mg/dL POC Glucose (mg/dL) 124 H 133 H 119 H (70-110) mg/dL Calcium (8.4-10.2) mg/dL Total Bilirubin (0.2-1.3) mg/dL AST (14-36) U/L Total Protein (6.3-8.2) g/dL Albumin (3.5-5.0) g/dL Crossmatch 05/08/23 05/08/23 05/08/23 Range/Units 02:53 04:14 04:15 WBC 12.7 H (3.8-10.6) k/uL RBC 3.55 L (3.80-5.40) m/uL Hgb 10.4 L (11.4-16.0) gm/dL Hct 31.9 L (34.0-46.0) % RDW 16.0 H (11.5-15.5) % Plt Count 148 L (150-450) k/uL Neutrophils # 11.0 H (1.3-7.7) k/uL Lymphocytes # 0.9 L (1.0-4.8) k/uL ABG pH (7.35-7.45) ABG pO2 (83-108) mmHg Chloride (98-107) mmol/L Carbon Dioxide (22-30) mmol/L Glucose (74-99) mg/dL POC Glucose (mg/dL) 114 H 134 H (70-110) mg/dL Calcium (8.4-10.2) mg/dL Total Bilirubin (0.2-1.3) mg/dL AST (14-36) U/L Total Protein (6.3-8.2) g/dL Albumin (3.5-5.0) g/dL Crossmatch 05/08/23 05/08/23 05/08/23 Range/Units 04:15 06:04 07:07 WBC (3.8-10.6) k/uL RBC (3.80-5.40) m/uL Hgb (11.4-16.0) gm/dL Hct (34.0-46.0) % RDW (11.5-15.5) % Plt Count (150-450) k/uL Neutrophils # (1.3-7.7) k/uL Lymphocytes # (1.0-4.8) k/uL ABG pH (7.35-7.45) ABG pO2 (83-108) mmHg Chloride 109 H (98-107) mmol/L Carbon Dioxide 21 L (22-30) mmol/L Glucose 120 H (74-99) mg/dL POC Glucose (mg/dL) 180 H 141 H (70-110) mg/dL Calcium 7.6 L (8.4-10.2) mg/dL Total Bilirubin 1.5 H (0.2-1.3) mg/dL AST 37 H (14-36) U/L Total Protein 4.9 L (6.3-8.2) g/dL Albumin 3.1 L (3.5-5.0) g/dL Crossmatch 05/08/23 05/08/23 05/08/23 Range/Units 08:08 09:17 10:10 WBC (3.8-10.6) k/uL RBC (3.80-5.40) m/uL Hgb (11.4-16.0) gm/dL Hct (34.0-46.0) % RDW (11.5-15.5) % Plt Count (150-450) k/uL Neutrophils # (1.3-7.7) k/uL Lymphocytes # (1.0-4.8) k/uL ABG pH (7.35-7.45) ABG pO2 (83-108) mmHg Chloride (98-107) mmol/L Carbon Dioxide (22-30) mmol/L Glucose (74-99) mg/dL POC Glucose (mg/dL) 142 H 116 H 117 H (70-110) mg/dL Calcium (8.4-10.2) mg/dL Total Bilirubin (0.2-1.3) mg/dL AST (14-36) U/L Total Protein (6.3-8.2) g/dL Albumin (3.5-5.0) g/dL Crossmatch 05/08/23 05/08/23 05/08/23 Range/Units 11:11 13:24 14:06 WBC (3.8-10.6) k/uL RBC (3.80-5.40) m/uL Hgb (11.4-16.0) gm/dL Hct (34.0-46.0) % RDW (11.5-15.5) % Plt Count (150-450) k/uL Neutrophils # (1.3-7.7) k/uL Lymphocytes # (1.0-4.8) k/uL ABG pH (7.35-7.45) ABG pO2 (83-108) mmHg Chloride (98-107) mmol/L Carbon Dioxide (22-30) mmol/L Glucose (74-99) mg/dL POC Glucose (mg/dL) 114 H 164 H 199 H (70-110) mg/dL Calcium (8.4-10.2) mg/dL Total Bilirubin (0.2-1.3) mg/dL AST (14-36) U/L Total Protein (6.3-8.2) g/dL Albumin (3.5-5.0) g/dL Crossmatch
[2023-05-08 15:03] LABS: Glucose,Whole Blood 168 mg/dL (70-110)
[2023-05-08 16:19] LABS: Glucose,Whole Blood 140 mg/dL (70-110)
[2023-05-08 18:18] LABS: Glucose,Whole Blood 78 mg/dL (70-110)
[2023-05-08 19:06] LABS: Glucose,Whole Blood 99 mg/dL (70-110)
[2023-05-08] MEDS: ACETAMINOPHEN TAB 325 MG TAB PO PRN (19:38)
[2023-05-08 19:47] LABS: Glucose,Whole Blood 100 mg/dL (70-110)
[2023-05-08] MEDS: MONTELUKAST 10 MG TAB PO SCH (20:18)
[2023-05-08] MEDS: SENNOSIDES-DOCUSATE SODIUM 1 EACH TAB PO SCH (20:18)
[2023-05-08] MEDS: LACTATED RINGERS 1,000 ML IV SCH (20:22)
[2023-05-08 21:07] LABS: Glucose,Whole Blood 133 mg/dL (70-110)
[2023-05-08 22:14] LABS: Glucose,Whole Blood 147 mg/dL (70-110)
[2023-05-08 23:05] LABS: Glucose,Whole Blood 123 mg/dL (70-110)
[2023-05-09 00:08] LABS: Glucose,Whole Blood 104 mg/dL (70-110)
[2023-05-09 01:09] LABS: Glucose,Whole Blood 98 mg/dL (70-110)
[2023-05-09 01:36] LABS: African American GFR (CKD) >90 (>60 ml/min/1.73 sqM); Anion Gap 7 mmol/L; Blood Urea Nitrogen 13 mg/dL (7-17); Calcium 8.1 mg/dL (8.4-10.2); Carbon Dioxide 22 mmol/L (22-30); Chloride 105 mmol/L (98-107); Glucose 90 mg/dL (74-99); Magnesium 2.3 mg/dL (1.6-2.3); Non-African American GFR(CKD) 81 (>60 ml/min/1.73 sqM); Potassium 4.1 mmol/L (3.5-5.1); Sodium 134 mmol/L (137-145)
[2023-05-09 02:04] LABS: Glucose,Whole Blood 113 mg/dL (70-110)
[2023-05-09 02:58] LABS: Glucose,Whole Blood 110 mg/dL (70-110)
[2023-05-09 04:06] LABS: Glucose,Whole Blood 120 mg/dL (70-110)
[2023-05-09 05:07] LABS: Glucose,Whole Blood 129 mg/dL (70-110)
[2023-05-09] MEDS: KETOROLAC 15 MG/ML 1 ML VIAL IVP SCH ×4 (06:01→23:34)
[2023-05-09] MEDS: LEVOTHYROXINE 50 MCG TAB PO SCH (06:02)
[2023-05-09] MEDS: PANTOPRAZOLE 40 MG TABLET PO SCH (06:02)
[2023-05-09 06:39] LABS: Glucose,Whole Blood 141 mg/dL (70-110)
--- NOTE | 2023-05-09 06:39 | XR ---
EXAMINATION TYPE: XR chest 1V portable DATE OF EXAM: 05/09/2023 5:05 AM COMPARISON: Chest radiographs from 05/08/2023 TECHNIQUE: XR chest 1V portable Portable AP radiograph of the chest. CLINICAL INDICATION:Female, 62 years old with history of Post Operative Cardiac Surgery; FINDINGS: Lungs/Pleura: No appreciable pneumothorax. Linear atelectasis and/or scarring within the left midlung . Small to moderate left pleural effusion. Pulmonary vascularity: Mild pulmonary vascular congestion. Heart/mediastinum: Cardiomediastinal silhouette is enlarged and stable. Atherosclerotic calcificatio ns are seen in the aorta. Left atrial appendage occlusion devices present. Musculoskeletal: No acute osseous pathology. Midline sternotomy wires are noted and stable. Other findings: None Lines/Tubes: Bilateral chest tubes are in stable position. Mediastinal drain is in stable position. Interval remov al of right IJ [place]ft[place]har catheter with sheath in place. IMPRESSION: 1. Bilateral chest tubes. No appreciable pneumothorax. 2. Interval removal of right-sided [place]Ift[place]har catheter with sheath in place. 3. CHF with ongoing pulmonary vascular congestion and small to moderate size similar left pleural ef fusion.
[2023-05-09 07:01] LABS: Anisocytosis Slight; Basophils % (A) 0 %; Eosinophils # (A) 0.1 k/uL (0-0.7); Eosinophils % (A) 1 %; HCT 31.5 % (34.0-46.0); HGB 10.6 gm/dL (11.4-16.0); Hypochromasia Slight; Lymphocytes % (A) 10 %; MCH 30.3 pg (25.0-35.0); MCHC 33.6 g/dL (31.0-37.0); MCV 90.3 fL (80.0-100.0); Mean Platelet Volume 9.5; Monocytes # (A) 0.4 k/uL (0-1.0); Monocytes % (A) 4 %; Neutrophils # (A) 8.7 k/uL (1.3-7.7); Neutrophils % (A) 84 %; Platelet Count 178 k/uL (150-450); RBC 3.49 m/uL (3.80-5.40); RDW 16.6 % (11.5-15.5); WBC 10.3 k/uL (3.8-10.6)
[2023-05-09] MEDS ORDERED: MIDODRINE 5 MG TAB PO SCH ×2 (07:30→17:30)
[2023-05-09 07:37] LABS: ALT 16 U/L (4-34); AST 37 U/L (14-36); African American GFR (CKD) >90 (>60 ml/min/1.73 sqM); Albumin 2.9 g/dL (3.5-5.0); Alkaline Phosphatase 74 U/L (38-126); Anion Gap 12 mmol/L; Blood Urea Nitrogen 13 mg/dL (7-17); Calcium 8.2 mg/dL (8.4-10.2); Carbon Dioxide 19 mmol/L (22-30); Chloride 105 mmol/L (98-107); Glucose 132 mg/dL (74-99); Non-African American GFR(CKD) 81 (>60 ml/min/1.73 sqM); Potassium 4.1 mmol/L (3.5-5.1); Sodium 136 mmol/L (137-145); Total Bilirubin 2.1 mg/dL (0.2-1.3)
[2023-05-09 07:53] LABS: Ionized Calcium 4.8 mg/dL (4.5-5.3)
--- NOTE | 2023-05-09 07:54 | P.PN ---
Subjective Progress Note Date: 05/09/23 Principal diagnosis: Coronary artery disease, NSTEMI this admission, new onset atrial fibrillation. History of hypertension, hyperlipidemia, left internal carotid artery stenosis, type 2 diabetes mellitus, hypothyroid, chronic ongoing tobacco dependence, severe COPD, asthma, chronic back pain, obesity, and family history of premature coronary artery disease. POD #3 off-pump coronary artery bypass graft 3 with left internal thoracic artery in situ to the left anterior descending coronary artery, radial artery from the aorta to the ramus intermedius artery, reverse saphenous vein graft from the aorta to the posterior descending coronary artery, endoscopic left radial and left greater saphenous vein harvest, left atrial appendage ligation using a 35 mm AtriClip, intraoperative graft flow measurements using the [employer] Direct flowmeter system, intraoperative transesophageal echocardiogram performed by anesthesia Postoperative acute blood loss anemia and thrombocytopenia, expected given hemodilution The patient was seen and examined this morning sitting up in a recliner in the intensive care unit in no acute distress. Remains in sinus rhythm to sinus tach, hemodynamically stable on no inotropes or pressors. States pain is mostly controlled on current medication regimen, denies shortness of breath. Remains on 2 L nasal cannula with oxygen saturation in the mid 90s, able to achieve 750 mL on incentive spirometry. Labs, CXR reviewed. Right internal jugular cordis, mediastinal/right/left pleural chest tubes all remain. Patient has ambulated in the hallway without difficulty. No other new concerns. Objective - Vital Signs Vital signs: Vital Signs Temp 97.8 F 05/09/23 04:00 Pulse 96 05/09/23 07:00 Resp 22 05/09/23 07:00 BP 103/59 05/09/23 07:00 Pulse Ox 91 L 05/09/23 07:00 FiO2 50 05/07/23 18:00 Intake & Output 05/08/23 05/09/23 05/09/23 18:59 06:59 18:59 Intake Total 1246.773 299.575 Output Total 1073 1610 Balance 173.773 -1310.425 Weight 92.5 kg 93.1 kg Intake: IV 487 276 Cardiac Output (0.9 40 Sodium Chloride) Lactated Ringers 1,000 ml 390 240 @ 20 mls/hr IV .Q24H [facility] Rx#:[id number] Pressure Bag (0.9 Sodium 57 36 Chloride) Intake, IV Titration 409.773 23.575 Amount Amiodarone 450 mg In 321.396 Dextrose 5% in Water 250 ml @ 0.5 MG/MIN 16.667 mls/hr IV .Q15H [facility] Rx#: [id number] Insulin Regular 100 unit 62.527 23.575 In Sodium Chloride 0.9% 100 ml @ Per Protocol IV .Q0M [facility] Rx#:[id number] Nitroglycerin-D5w Pmx 50 25.85 mg In Dextrose/Water 1 250ml.bag @ 5 MCG/MIN 1.5 mls/hr IV .Q24H [facility] Rx#: [id number] Oral 350 Output: Chest Tube Drainage 330 440 Chest Tube Bilateral 240 340 Lateral Chest Chest Tube Mediastinal 90 100 Urine 243 1170 Emesis 500 Other: Voiding Method Indwelling Catheter Indwelling Catheter ABP, PAP, CO, CI - Last Documented Arterial Blood Pressure 116/57 Pulmonary Artery Pressure 27/14 Cardiac Output 4.1 Cardiac Index 2.1 - Exam CONSTITUTIONAL: Appears comfortable, cooperative, no acute distress RESPIRATORY: Lungs sounds diminished bilaterally. Respirations even, nonlabored. Currently on 2 L nasal cannula with oxygen saturation 96%. Able to achieve 750 mL on incentive spirometry. Strong cough. CARDIOVASCULAR: S1, S2 present. Regular rate and rhythm, sinus rhythm to sinus tach on telemetry. Sternum stable. Palpable peripheral pulses bilaterally. Trace generalized edema present. No calf pain or tenderness noted. Heart hugger in place with patient demonstrating appropriate use. Antiembolism stockings, SCDs present. GASTROINTESTINAL: Abdomen soft, nontender, nondistended. Hypoactive bowel sounds present 4 quadrants. Tolerating diet. Positive belching, negative f latus GENITOURINARY: Mckinney present draining clear, yellow urine. Output overnight 50-150 mL per hour, 1410 mL in the last 24 hours INTEGUMENTARY: Skin is warm and dry with evidence of good perfusion. Anterior chest incision well approximated and covered with dry intact dressing. Left lower extremity EVH as well as left radial artery harvest site well approximated without redness or drainage. NEUROLOGIC: Cranial nerves II through XII intact MUSKULOSKELETAL: Able to move all extremities, strength equal bilaterally PSYCHIATRIC: Alert and oriented to person place and time, appropriate affect, intact judgment and insight INVASIVE LINES AND TUBES: Mediastinal/left/right pleural chest tubes present and connected to wall suction, no air leaks present. Mediastinal tube with 100 mL serosanguineous drainage overnight, 200 mL in the last 24 hours. Left/right pleural chest tubes with 350 mL serosanguineous drainage overnight, 600 mL in the last 24 hours. Ventricular epicardial pacemaker wire present, connected to generator, backup rate 50 bpm. Right internal jugular cordis present. Last CVP 13. - Allied health notes Allied health notes reviewed: nursing - Labs CBC & Chem 7: 05/09/23 06:10 05/09/23 06:10 Labs: Abnormal Lab Results - Last 24 Hours (Table) 05/08/23 05/08/23 05/08/23 Range/Units 08:08 09:17 10:10 RBC (3.80-5.40) m/uL Hgb (11.4-16.0) gm/dL Hct (34.0-46.0) % RDW (11.5-15.5) % Neutrophils # (1.3-7.7) k/uL Sodium (137-145) mmol/L Carbon Dioxide (22-30) mmol/L Glucose (74-99) mg/dL POC Glucose (mg/dL) 142 H 116 H 117 H (70-110) mg/dL Calcium (8.4-10.2) mg/dL Total Bilirubin (0.2-1.3) mg/dL AST (14-36) U/L Total Protein (6.3-8.2) g/dL Albumin (3.5-5.0) g/dL 05/08/23 05/08/23 05/08/23 Range/Units 11:11 13:24 14:06 RBC (3.80-5.40) m/uL Hgb (11.4-16.0) gm/dL Hct (34.0-46.0) % RDW (11.5-15.5) % Neutrophils # (1.3-7.7) k/uL Sodium (137-145) mmol/L Carbon Dioxide (22-30) mmol/L Glucose (74-99) mg/dL POC Glucose (mg/dL) 114 H 164 H 199 H (70-110) mg/dL Calcium (8.4-10.2) mg/dL Total Bilirubin (0.2-1.3) mg/dL AST (14-36) U/L Total Protein (6.3-8.2) g/dL Albumin (3.5-5.0) g/dL 05/08/23 05/08/23 05/08/23 Range/Units 15:00 16:13 21:06 RBC (3.80-5.40) m/uL Hgb (11.4-16.0) gm/dL Hct (34.0-46.0) % RDW (11.5-15.5) % Neutrophils # (1.3-7.7) k/uL Sodium (137-145) mmol/L Carbon Dioxide (22-30) mmol/L Glucose (74-99) mg/dL POC Glucose (mg/dL) 168 H 140 H 133 H (70-110) mg/dL Calcium (8.4-10.2) mg/dL Total Bilirubin (0.2-1.3) mg/dL AST (14-36) U/L Total Protein (6.3-8.2) g/dL Albumin (3.5-5.0) g/dL 05/08/23 05/08/23 05/09/23 Range/Units 22:12 23:04 00:59 RBC (3.80-5.40) m/uL Hgb (11.4-16.0) gm/dL Hct (34.0-46.0) % RDW (11.5-15.5) % Neutrophils # (1.3-7.7) k/uL Sodium 134 L (137-145) mmol/L Carbon Dioxide (22-30) mmol/L Glucose (74-99) mg/dL POC Glucose (mg/dL) 147 H 123 H (70-110) mg/dL Calcium 8.1 L (8.4-10.2) mg/dL Total Bilirubin (0.2-1.3) mg/dL AST (14-36) U/L Total Protein (6.3-8.2) g/dL Albumin (3.5-5.0) g/dL 05/09/23 05/09/23 05/09/23 Range/Units 02:02 04:04 05:06 RBC (3.80-5.40) m/uL Hgb (11.4-16.0) gm/dL Hct (34.0-46.0) % RDW (11.5-15.5) % Neutrophils # (1.3-7.7) k/uL Sodium (137-145) mmol/L Carbon Dioxide (22-30) mmol/L Glucose (74-99) mg/dL POC Glucose (mg/dL) 113 H 120 H 129 H (70-110) mg/dL Calcium (8.4-10.2) mg/dL Total Bilirubin (0.2-1.3) mg/dL AST (14-36) U/L Total Protein (6.3-8.2) g/dL Albumin (3.5-5.0) g/dL 05/09/23 05/09/23 05/09/23 Range/Units 06:10 06:10 06:38 RBC 3.49 L (3.80-5.40) m/uL Hgb 10.6 L (11.4-16.0) gm/dL Hct 31.5 L (34.0-46.0) % RDW 16.6 H (11.5-15.5) % Neutrophils # 8.7 H (1.3-7.7) k/uL Sodium 136 L (137-145) mmol/L Carbon Dioxide 19 L (22-30) mmol/L Glucose 132 H (74-99) mg/dL POC Glucose (mg/dL) 141 H (70-110) mg/dL Calcium 8.2 L (8.4-10.2) mg/dL Total Bilirubin 2.1 H (0.2-1.3) mg/dL AST 37 H (14-36) U/L Total Protein 5.0 L (6.3-8.2) g/dL Albumin 2.9 L (3.5-5.0) g/dL - Imaging and Cardiology Chest x-ray: report reviewed, image reviewed Assessment and Plan Assessment: Coronary artery disease, NSTEMI this admission, status post off-pump present three-vessel CABG New onset atrial fibrillation, currently sinus, status post left atrial appendage ligation History of hypertension Hyperlipidemia, treated, cholesterol 126, LDL 44, triglycerides 218 Left internal carotid artery stenosis, 50-69% Type 2 diabetes mellitus, preoperative hemoglobin A1c 7.3% Hypothyroid Chronic ongoing tobacco dependence Severe COPD, preoperative FEV1 38% of predicted Asthma Chronic back pain Obesity Family history of premature coronary artery disease Postoperative acute blood loss anemia and thrombocytopenia, expected Plan: Continue to maximize medical therapy with aspirin, statin, Plavix, beta daniel. Will increase beta daniel therapy as tolerated, increased to 25 mg BID today for better heart rate control. Added midodrine to support blood pressure Continue amiodarone for A. fib prophylaxis, will taper weekly Continue low-dose calcium channel daniel for radial artery spasm prophylaxis with hold parameters Wean O2 as tolerated. Encourage incentive spirometry use to times every hour while awake, bronchodilators per pulmonology Increase activity, ambulate as tolerated. PT/OT/cardiac rehab consulted Will monitor daily labs and x-rays. Electrolyte replacement per protocol GI/DVT prophylaxis Pain control with current medication regimen Insulin management per internal medicine. Patient is diabetic with preoperative hemoglobin A1c 7.3%. Needs tight blood sugar control, should remain on IV insulin for 48 hours then may transition to subcutaneous per protocol Will discontinue mediastinal chest tube, keep and split right/left pleural tubes for another 24 hours, monitor output Discontinue Mckinney, may bladder scan and straight cath for >300 mL residual Continue to record strict accurate intake and output Daily weights Ground epicardial pacer wires More recommendations to follow
[2023-05-09] MEDS: IPRATROPIUM-ALBUTEROL 3 ML NEB INHALATION SCH ×4 (07:56→19:54)
[2023-05-09] MEDS: SYMBICORT 80-4.5 MCG INHALER INHALATION SCH ×2 (07:57→19:54)
[2023-05-09 08:31] LABS: Glucose,Whole Blood 143 mg/dL (70-110)
[2023-05-09] MEDS: AMIODARONE 200 MG TAB PO SCH ×2 (08:50→20:30)
[2023-05-09] MEDS: ATORVASTATIN 40 MG TAB PO SCH (08:50)
[2023-05-09] MEDS: ASPIRIN 325 MG TAB PO SCH (08:50)
[2023-05-09] MEDS: HEPARIN SODIUM,PORCINE 5,000 UNIT/ML 1 ML VIAL SQ SCH ×3 (08:51→23:34)
[2023-05-09] MEDS: CLOPIDOGREL 75 MG TAB PO SCH (08:51)
[2023-05-09] MEDS: METOPROLOL TARTRATE 12.5 MG TAB PO SCH ×2 (08:51→20:30)
--- NOTE | 2023-05-09 09:19 | P.PN ---
Subjective Progress Note Date: 05/09/23 I am seeing this patient in consultation today 05/06/2023 on the cardiac stepdown unit for preoperative pulmonary clearance in preparation for open heart surgery to be done on May 07. Patient is a 62-year-old white female with past medical history significant for hypertension, hyperlipidemia, diabetes mellitus type 2, asthma, obesity, hypothyroidism. Patient does have a significant familial history of premature coronary artery disease and ME. She does follow with a nurse practitioner out of Dr. Holden Fitzgerald's office. Patient was awakened in the middle the night with severe substernal chest pain starting on 05/04/2023. She presented originally to [facility] and was diagnosed with a non-ST elevation ME. She was also in atrial fibrillation with RVR at that time. She did undergo heart catheterization at outside facility and was found to have severe multivessel coronary artery disease. Patient was then transferred to [facility] for surgical revascularization, which is scheduled this May 07. We were consulted for preoperative pulmonary clearance and postoperative ventilator management during her recovery. A bedside spirometry showed a FEV1 of 0.92 liters or 38%. Based on this, she is at a moderate increased intraoperative risk. Patient states that she takes as needed albuterol and was recently prescribed Breztri by her PCP, but has not started it. She actually denies any history of asthma or COPD. She does report severe seasonal ALLERGIES and is ALLERGIC to pet dander among other things. She also reports a significant smoking history of 1.5 pack per day since she was a teenager. Chest x-ray outside facility reportedly showed no acute cardiopulmonary disease process. Patient is currently sitting up in bed, on 2 L/m nasal cannula, in no acute distress. SpO2 reading 95%. She is currently on IV heparin per protocol and normal saline is infusing at 75 mL per hour. She denies any further chest pain. She denies any pulmonary complaints. Most recent BMP shows sodium 140, potassium 3.8, chloride 110, serum bicarb 24, BUN 8, creatinine 0.65, glucose 120. LFTs mildly elevated. APTT subtherapeutic at 33.8. Patient is currently being monitored on the cardiac stepdown unit and is undergoing an extensive preoperative work up. The patient is seen today 05/07/2023 in follow-up in the intensive care unit. She had recently returned from surgery. She had undergone an off-pump coronary artery bypass grafting 3 utilizing a DURBIN to the LAD, right artery from aorta to ramus intermedius and a saphenous vein graft from the aorta to posterior descending coronary artery. Left atrial ligation using an Atriclip. She is currently sedated on the mechanical ventilator and assist control mode at a rate of 14, tidal volume 400, FiO2 100% and a PEEP of 10. Blood gases revealed a pO2 of 181, pCO2 of 51 and a pH is 7.25. Her respiratory rate was increased to 18. Cardiac output 4.6. Cardiac index 2.4. She is receiving lactated Ringer's at 50 MLS per hour. Sedated with propofol at 20 mcg/kg/m. On a nitroglycerin drip at 5 mg/m. Insulin drip at 1.5 units per hour. Mediastinal and right and left pleural chest tubes are in place. Chest x-ray reviewed. Blood sugar 138. Other labs are pending. The patient is seen today 05/08/2023 in follow-up in the intensive care unit. Postoperative day #1. She is currently awake and alert in no acute distress. Sitting up in a chair at the bedside. She is maintaining good O2 saturations in the 90s on 4 L/m per nasal cannula. She is requiring insulin drip at 6 units per hour. She is on amiodarone at 0.5 mg/m. She has lactated Ringer's at 50 MLS per hour. Cardiac output 4.1. Cardiac index 2.1. Mediastinal and left and right chest tubes remain in place. Right radial arterial line in place. [place]- Iftikhar catheter to the right IJ in place. Epicardial pacer wires in place. Backup pacing at 50. Chest x-ray continues to show some pulmonary vascular congestion with a [id number] left pleural effusion and adjacent atelectasis. No pneumothorax. White count 12.7. Hemoglobin 10.4. Platelets 148. Sodium 138. Potassium 4.2. Bicarb 21. BUN 10. Creatinine 0.65. Glucose 120. AST 37. ALT 18. Albumin 3.1. Ionized calcium 4.6. Magnesium 2.1. She remains on bronchodilators. Working well with the incentive spirometer. Heparin for DVT prophylaxis. She is currently in a -2.1 L balance. The patient is seen today 05/09/2023 in follow-up in the intensive care unit. Postoperative day #2. She is currently sitting up in a chair. Awake and alert in no acute distress. Denies any worsening shortness, cough or congestion. Chest x-ray is showing some significant atelectasis in the left lower lobe. She is working with the incentive spirometer. She has been up ambulating in the hallway. She is requiring insulin at 5.5 units per hour. Lactated Ringer's at 20 ML's per hour. Mediastinal, right and left chest tubes remain in place. Right IJ cordis remains in place. Indwelling Mckinney catheter remains in place. She is maintaining good O2 saturations in the 90s on 2 L/m per nasal cannula. Continued on DuoNeb inhalations, Symbicort and Singulair. Heparin for DVT prophylaxis. She is currently in a -1.1 L balance. Objective - Vital Signs Vital signs: Vital Signs Temp 97.8 F 05/09/23 04:00 Pulse 100 05/09/23 08:09 Resp 22 05/09/23 07:00 BP 103/59 05/09/23 07:00 Pulse Ox 91 L 05/09/23 07:00 FiO2 50 05/07/23 18:00 Intake & Output 05/08/23 05/09/23 05/09/23 18:59 06:59 18:59 Intake Total 1246.773 299.575 163 Output Total 1073 1610 315 Balance 173.773 -1310.425 -152 Weight 92.5 kg 93.1 kg Intake: IV 487 276 43 Cardiac Output (0.9 40 Sodium Chloride) Lactated Ringers 1,000 ml 390 240 40 @ 20 mls/hr IV .Q24H [facility] Rx#:[id number] Pressure Bag (0.9 Sodium 57 36 3 Chloride) Intake, IV Titration 409.773 23.575 Amount Amiodarone 450 mg In 321.396 Dextrose 5% in Water 250 ml @ 0.5 MG/MIN 16.667 mls/hr IV .Q15H [facility] Rx#: [id number] Insulin Regular 100 unit 62.527 23.575 In Sodium Chloride 0.9% 100 ml @ Per Protocol IV .Q0M [facility] Rx#:[id number] Nitroglycerin-D5w Pmx 50 25.85 mg In Dextrose/Water 1 250ml.bag @ 5 MCG/MIN 1.5 mls/hr IV .Q24H [facility] Rx#: [id number] Oral 350 120 Output: Chest Tube Drainage 330 440 40 Chest Tube Bilateral 240 340 0 Lateral Chest Chest Tube Mediastinal 90 100 40 Urine 243 1170 275 Emesis 500 Other: Voiding Method Indwelling Catheter Indwelling Catheter ABP, PAP, CO, CI - Last Documented Arterial Blood Pressure 116/57 Pulmonary Artery Pressure 27/14 Cardiac Output 4.1 Cardiac Index 2.1 - Exam GENERAL EXAM: Awake, alert pleasant 62-year-old female, 2 L nasal cannula, up in a chair, in no apparent distress. HEAD: Normocephalic. EYES: Normal reaction of pupils, equal size. NOSE: Clear with pink turbinates. THROAT: No erythema or exudates. NECK: Right IJ Cordis in place. No masses, no JVD. CHEST: Sternal dressing dry and intact. Mediastinal, right and left pleural chest tubes in place. Epicardial wires in place. LUNGS: Equal air entry with no crackles, wheeze, rhonchi or dullness. CVS: S1 and S2 normal with no audible murmur, regular rhythm. ABDOMEN: No hepatosplenomegaly, normal bowel sounds, no guarding or rigidity. SPINE: No scoliosis or deformity SKIN: No rashes CENTRAL NERVOUS SYSTEM: No focal deficits, tone is normal in all 4 extremities. EXTREMITIES: SCDs to the lower extremities. No clubbing, no cyanosis. Peripheral pulses are intact. - Labs CBC & Chem 7: 05/09/23 06:10 05/09/23 06:10 Labs: Abnormal Lab Results - Last 24 Hours (Table) 05/08/23 05/08/23 05/08/23 Range/Units 09:17 10:10 11:11 RBC (3.80-5.40) m/uL Hgb (11.4-16.0) gm/dL Hct (34.0-46.0) % RDW (11.5-15.5) % Neutrophils # (1.3-7.7) k/uL Sodium (137-145) mmol/L Carbon Dioxide (22-30) mmol/L Glucose (74-99) mg/dL POC Glucose (mg/dL) 116 H 117 H 114 H (70-110) mg/dL Calcium (8.4-10.2) mg/dL Total Bilirubin (0.2-1.3) mg/dL AST (14-36) U/L Total Protein (6.3-8.2) g/dL Albumin (3.5-5.0) g/dL 05/08/23 05/08/23 05/08/23 Range/Units 13:24 14:06 15:00 RBC (3.80-5.40) m/uL Hgb (11.4-16.0) gm/dL Hct (34.0-46.0) % RDW (11.5-15.5) % Neutrophils # (1.3-7.7) k/uL Sodium (137-145) mmol/L Carbon Dioxide (22-30) mmol/L Glucose (74-99) mg/dL POC Glucose (mg/dL) 164 H 199 H 168 H (70-110) mg/dL Calcium (8.4-10.2) mg/dL Total Bilirubin (0.2-1.3) mg/dL AST (14-36) U/L Total Protein (6.3-8.2) g/dL Albumin (3.5-5.0) g/dL 05/08/23 05/08/23 05/08/23 Range/Units 16:13 21:06 22:12 RBC (3.80-5.40) m/uL Hgb (11.4-16.0) gm/dL Hct (34.0-46.0) % RDW (11.5-15.5) % Neutrophils # (1.3-7.7) k/uL Sodium (137-145) mmol/L Carbon Dioxide (22-30) mmol/L Glucose (74-99) mg/dL POC Glucose (mg/dL) 140 H 133 H 147 H (70-110) mg/dL Calcium (8.4-10.2) mg/dL Total Bilirubin (0.2-1.3) mg/dL AST (14-36) U/L Total Protein (6.3-8.2) g/dL Albumin (3.5-5.0) g/dL 05/08/23 05/09/23 05/09/23 Range/Units 23:04 00:59 02:02 RBC (3.80-5.40) m/uL Hgb (11.4-16.0) gm/dL Hct (34.0-46.0) % RDW (11.5-15.5) % Neutrophils # (1.3-7.7) k/uL Sodium 134 L (137-145) mmol/L Carbon Dioxide (22-30) mmol/L Glucose (74-99) mg/dL POC Glucose (mg/dL) 123 H 113 H (70-110) mg/dL Calcium 8.1 L (8.4-10.2) mg/dL Total Bilirubin (0.2-1.3) mg/dL AST (14-36) U/L Total Protein (6.3-8.2) g/dL Albumin (3.5-5.0) g/dL 05/09/23 05/09/23 05/09/23 Range/Units 04:04 05:06 06:10 RBC 3.49 L (3.80-5.40) m/uL Hgb 10.6 L (11.4-16.0) gm/dL Hct 31.5 L (34.0-46.0) % RDW 16.6 H (11.5-15.5) % Neutrophils # 8.7 H (1.3-7.7) k/uL Sodium (137-145) mmol/L Carbon Dioxide (22-30) mmol/L Glucose (74-99) mg/dL POC Glucose (mg/dL) 120 H 129 H (70-110) mg/dL Calcium (8.4-10.2) mg/dL Total Bilirubin (0.2-1.3) mg/dL AST (14-36) U/L Total Protein (6.3-8.2) g/dL Albumin (3.5-5.0) g/dL 05/09/23 05/09/23 05/09/23 Range/Units 06:10 06:38 08:28 RBC (3.80-5.40) m/uL Hgb (11.4-16.0) gm/dL Hct (34.0-46.0) % RDW (11.5-15.5) % Neutrophils # (1.3-7.7) k/uL Sodium 136 L (137-145) mmol/L Carbon Dioxide 19 L (22-30) mmol/L Glucose 132 H (74-99) mg/dL POC Glucose (mg/dL) 141 H 143 H (70-110) mg/dL Calcium 8.2 L (8.4-10.2) mg/dL Total Bilirubin 2.1 H (0.2-1.3) mg/dL AST 37 H (14-36) U/L Total Protein 5.0 L (6.3-8.2) g/dL Albumin 2.9 L (3.5-5.0) g/dL Assessment and Plan Assessment: Non-ST elevation myocardial infarction Severe multivessel coronary artery disease, status post off-pump coronary artery bypass grafting 3. Postoperative day #2 Suspected COPD/asthma, stable Hyperlipidemia Hypertension Left internal carotid artery stenosis, estimated at 50-69%, based on carotid duplex ultrasound Diabetes mellitus type 2 Hypothyroidism Obesity with a BMI of 32.2 kg/m Chronic ongoing tobacco dependence, currently smoking 1.5 packs per day Plan: The patient was seen and evaluated Chest x-ray, labs and medications reviewed Stable and on 2 L nasal cannula Continue bronchodilators Encouraged the increased use of the incentive spirometer Increase her activity as tolerated Heparin for DVT prophylaxis We will continue to follow I have personally seen and examined the patient, performed the documentation and the assessment and plan as written. Number of minutes spent on the visit: 10.
[2023-05-09] MEDS ORDERED: METOPROLOL TARTRATE 12.5 MG TAB PO STA (09:25)
[2023-05-09 10:05] LABS: Glucose,Whole Blood 147 mg/dL (70-110)
--- NOTE | 2023-05-09 10:34 | PN ---
PROGRESS NOTE SUBJECTIVE: A 62-year-old lady who is status post CABG, postop day #2. The patient had a run of nonsustained VT and mild hypotension this morning, but both have resolved. She is on Norvasc 2.5 mg daily, amiodarone per CT Surgery, Plavix, Lopressor 12.5 b.i.d., and had just been started on midodrine. OBJECTIVE: GENERAL: On exam, comfortable at rest. VITAL SIGNS: Heart rate is around 100 beats per minute, blood pressure is 108/68, respiratory rate is 18. CHEST: Reveals diminished air entry at the bases. HEART: Reveals first and second heart sounds. No gallop. No murmur. ABDOMEN: Soft. EXTREMITIES: Exam of extremities did not reveal any edema. LABORATORIES: Show a hemoglobin of 10.6, platelet count is 178. Potassium is 4.1, creatinine is 0.79. ASSESSMENT: 1. Coronary artery disease, status post coronary artery bypass graft, postoperative day #2. 2. Nonsustained ventricular tachycardia. PLAN: The patient is stable hemodynamically this morning, not in respiratory distress, remains in sinus rhythm. I will continue her on current medications and once the blood pressure improves, consider going up on the dose of metoprolol. MMODL / IJN: [id number] /
[2023-05-09 11:36] LABS: Glucose,Whole Blood 111 mg/dL (70-110)
--- NOTE | 2023-05-09 12:10 | P.PN ---
Subjective Progress Note Date: 05/09/23 Patient endorsed to [facility] at 8:44AM on 05/05. 62-year-old female with PMH of diabetes mellitus, hypertension, dyslipidemia, hypothyroidism presented to [facility] for chest pain that started Thursday night around 12:30AM. Chest pain described as pressure like, radiating to the bilateral jaws. Cardiac cath showed 90% stenosis of her proximal left anterior descending artery, 40-50% stenosis to her mid left anterior descending coronary, a small diagonal branch #1 with a 80-90% stenosis, a 30-40% stenosis to the mid segment of her right coronary artery and a 90% stenosis to the proximal PDA coronary artery. She was transferred to [facility] for NSTEMI and Cardiothoracic surgery evaluation for CABG. She reports smoking 1 pack of cigarettes daily since 17 years old. Currently workup done at [facility] includes: Vein mapping US. Carotid doppler shows 50-69% stenosis left ICA, < 50% right ICA. LANEY shows borderline abnormal right LANEY, normal left LANEY. 05/06 Patient was seen and examined. Plans for CABG tomorrow. Reports anxiety. No chest pain. Currently on heparin drip. EKG shows sinus rhythm with moderate ST depression. 05/07 Patient was seen and examined post op in the ICU. Underwent CABG today. Intubated rate 18, TV 400, PEEP of 10, FiO2 50%. On Nitro drip 5 mcg/min. Amiodarone drip 1 mg/min. Insulin drip 3 units/hr. NS at 50 cc/hr. Clevidipine drip at 2 mg/hr. CBC shows Hg 10.3 Plt 127. INR 1.1. ABG pH 7.25, pCO2 51. CMP Cl 112, bicarb 21, glucose 139, Ca 7.1, ionized Ca 4.3, albumin 3.2. CXR shows post surgical changes. 05/08 Patient was seen and examined. Extubated successfully 05/07. Complains of some chest soreness and N/V. On clear liquid diet. Currently on NS at 30 cc/hr and Amiodarone drip at 0.5 mg/min. Nitro and Clevidipine drip discontinued. Pulmonology and CT surgery note reviewed. CBC shows WBC 12.7, Hg 10.4, Plt 148. CMP Cl 109, bicarb 21, glucose 120, Ca 7.6, T. Bili 1.5, AST 37, albumin 3.1. CXR shows right IJ, pulmonary vascular congestion, bilateral chest tube. 05/09 Patient was seen and examined. Reports some chest soreness but otherwise doing well. Amiodarone drip discontinued. Currently on insulin drip at 5.5 units/hr. I will stop the insulin drip and transition her to SQ insulin. Plans to discontinue Mckinney and mediastinal tube. Pulmonology and CT surgery note reviewed. CBC shows Hg 10.6. CMP Na 136, bicarb 19, glucose 132, Ca 8.2, T. Bili 2.1, AST 37, albumin 2.9. CXR shows pleural effusion, pulmonary vascular c ongestion, bilateral chest tube. General: Sternal dressing c/d/i. Bilateral pleural tube intact. Derm: warm, dry Head: atraumatic, normocephalic, symmetric Eyes: EOMI, no lid lag, anicteric sclera Mouth: no lip lesion, mucus membranes moist Cardiovascular: S1S2 reg, no murmur Lungs: Coarse BS bilateral, no rhonchi, no rales , no accessory muscle use Ext: no gross muscle atrophy, no edema, no contractures Neuro: No FND Psych: Alert and oriented Acute hypoxic respiratory failure NSTEMI status post CABG 05/07 Acute blood loss anemia Transaminitis Hypomagnesemia Hypocalcemia Chronic conditions: diabetes mellitus, hypertension, dyslipidemia, hypothyroidism Based on my assessment of this patient, this patient meets a high complexity level of care. Patient has an acute diagnosis of NSTEMI that poses a threat to life or bodily function. Acute hypoxic respiratory failure: Wean O2. NSTEMI: Status post CABG 05/07. ASA 325 mg PO QD. Lipitor 40 mg PO QD. Plavix 75 mg PO QD. Metoprolol 12.5 mg PO TID. Telemetry monitoring. Cardiology and CT surgery on board. Acute blood loss anemia: Expected result of surgery. Daily CBC. Transfuse if Hg < 7. Transaminitis: Mild elevation. Likley hepatic steotosis. Nonobstructive. Hepatitis panel negative. Hypomagnesemia: Replace via protocol. Hypocalcemia: Monitor. I have reviewed the following interior design consultant notes: Cardiothoracic surgery, Pulm note. I have reviewed the results of the following tests: CBC, CMP. I have ordered the following tests: I have discussed the care of this patient with the following independent historian: Discussed with RN. I have independently interpreted the following test below: CXR as above. I have discussed the management of this patient with the following physician: Objective - Vital Signs Vital signs: Vital Signs Temp 97.8 F 05/09/23 04:00 Pulse 100 05/09/23 08:09 Resp 22 05/09/23 07:00 BP 103/59 05/09/23 07:00 Pulse Ox 91 L 05/09/23 07:00 FiO2 50 05/07/23 18:00 Intake & Output 05/08/23 05/09/23 05/09/23 18:59 06:59 18:59 Intake Total 1246.773 299.575 Output Total 1073 1610 Balance 173.773 -1310.425 Weight 92.5 kg 93.1 kg Intake: IV 487 276 Cardiac Output (0.9 40 Sodium Chloride) Lactated Ringers 1,000 ml 390 240 @ 20 mls/hr IV .Q24H [facility] Rx#:[id number] Pressure Bag (0.9 Sodium 57 36 Chloride) Intake, IV Titration 409.773 23.575 Amount Amiodarone 450 mg In 321.396 Dextrose 5% in Water 250 ml @ 0.5 MG/MIN 16.667 mls/hr IV .Q15H [facility] Rx#: [id number] Insulin Regular 100 unit 62.527 23.575 In Sodium Chloride 0.9% 100 ml @ Per Protocol IV .Q0M [facility] Rx#:[id number] Nitroglycerin-D5w Pmx 50 25.85 mg In Dextrose/Water 1 250ml.bag @ 5 MCG/MIN 1.5 mls/hr IV .Q24H [facility] Rx#: [id number] Oral 350 Output: Chest Tube Drainage 330 440 Chest Tube Bilateral 240 340 Lateral Chest Chest Tube Mediastinal 90 100 Urine 243 1170 Emesis 500 Other: Voiding Method Indwelling Catheter Indwelling Catheter ABP, PAP, CO, CI - Last Documented Arterial Blood Pressure 116/57 Pulmonary Artery Pressure 27/14 Cardiac Output 4.1 Cardiac Index 2.1 - Labs CBC & Chem 7: 05/09/23 06:10 05/09/23 06:10 Labs: Abnormal Lab Results - Last 24 Hours (Table) 05/08/23 05/08/2305/08/23 Range/Units 09:17 10:10 11:11 RBC (3.80-5.40) m/uL Hgb (11.4-16.0) gm/dL Hct (34.0-46.0) % RDW (11.5-15.5) % Neutrophils # (1.3-7.7) k/uL Sodium (137-145) mmol/L Carbon Dioxide (22-30) mmol/L Glucose (74-99) mg/dL POC Glucose (mg/dL) 116 H 117 H 114 H (70-110) mg/dL Calcium (8.4-10.2) mg/dL Total Bilirubin (0.2-1.3) mg/dL AST (14-36) U/L Total Protein (6.3-8.2) g/dL Albumin (3.5-5.0) g/dL 05/08/23 05/08/23 05/08/23 Range/Units 13:24 14:06 15:00 RBC (3.80-5.40) m/uL Hgb (11.4-16.0) gm/dL Hct (34.0-46.0) % RDW (11.5-15.5) % Neutrophils # (1.3-7.7) k/uL Sodium (137-145) mmol/L Carbon Dioxide (22-30) mmol/L Glucose (74-99) mg/dL POC Glucose (mg/dL) 164 H 199 H 168 H (70-110) mg/dL Calcium (8.4-10.2) mg/dL Total Bilirubin (0.2-1.3) mg/dL AST (14-36) U/L Total Protein (6.3-8.2) g/dL Albumin (3.5-5.0) g/dL 05/08/23 05/08/23 05/08/23 Range/Units 16:13 21:06 22:12 RBC (3.80-5.40) m/uL Hgb (11.4-16.0) gm/dL Hct (34.0-46.0) % RDW (11.5-15.5) % Neutrophils # (1.3-7.7) k/uL Sodium (137-145) mmol/L Carbon Dioxide (22-30) mmol/L Glucose (74-99) mg/dL POC Glucose (mg/dL) 140 H 133 H 147 H (70-110) mg/dL Calcium (8.4-10.2) mg/dL Total Bilirubin (0.2-1.3) mg/dL AST (14-36) U/L Total Protein (6.3-8.2) g/dL Albumin (3.5-5.0) g/dL 05/08/23 05/09/23 05/09/23 Range/Units 23:04 00:59 02:02 RBC (3.80-5.40) m/uL Hgb (11.4-16.0) gm/dL Hct (34.0-46.0) % RDW (11.5-15.5) % Neutrophils # (1.3-7.7) k/uL Sodium 134 L (137-145) mmol/L Carbon Dioxide (22-30) mmol/L Glucose (74-99) mg/dL POC Glucose (mg/dL) 123 H 113 H (70-110) mg/dL Calcium 8.1 L (8.4-10.2) mg/dL Total Bilirubin (0.2-1.3) mg/dL AST (14-36) U/L Total Protein (6.3-8.2) g/dL Albumin (3.5-5.0) g/dL 05/09/23 05/09/23 05/09/23 Range/Units 04:04 05:06 06:10 RBC 3.49 L (3.80-5.40) m/uL Hgb 10.6 L (11.4-16.0) gm/dL Hct 31.5 L (34.0-46.0) % RDW 16.6 H (11.5-15.5) % Neutrophils # 8.7 H (1.3-7.7) k/uL Sodium (137-145) mmol/L Carbon Dioxide (22-30) mmol/L Glucose (74-99) mg/dL POC Glucose (mg/dL) 120 H 129 H (70-110) mg/dL Calcium (8.4-10.2) mg/dL Total Bilirubin (0.2-1.3) mg/dL AST (14-36) U/L Total Protein (6.3-8.2) g/dL Albumin (3.5-5.0) g/dL 05/09/23 05/09/23 Range/Units 06:10 06:38 RBC (3.80-5.40) m/uL Hgb (11.4-16.0) gm/dL Hct (34.0-46.0) % RDW (11.5-15.5) % Neutrophils # (1.3-7.7) k/uL Sodium 136 L (137-145) mmol/L Carbon Dioxide 19 L (22-30) mmol/L Glucose 132 H (74-99) mg/dL POC Glucose (mg/dL) 141 H (70-110) mg/dL Calcium 8.2 L (8.4-10.2) mg/dL Total Bilirubin 2.1 H (0.2-1.3) mg/dL AST 37 H (14-36) U/L Total Protein 5.0 L (6.3-8.2) g/dL Albumin 2.9 L (3.5-5.0) g/dL
[2023-05-09] MEDS ORDERED: INSULIN ASPART (NovoLOG) 100 UNIT/ML VIAL SQ SCH (12:30)
[2023-05-09 12:44] LABS: Glucose,Whole Blood 200 mg/dL (70-110)
[2023-05-09] MEDS: LACTATED RINGERS 1,000 ML IV SCH (12:50)
[2023-05-09] MEDS: amLODIPine 2.5 MG TAB PO SCH (14:15)
[2023-05-09 16:29] LABS: Glucose,Whole Blood 176 mg/dL (70-110)
[2023-05-09] MEDS: INSULIN ASPART (NovoLOG) 100 UNIT/ML VIAL SQ SCH ×3 (16:57→20:31)
[2023-05-09 20:29] LABS: Glucose,Whole Blood 172 mg/dL (70-110)
[2023-05-09] MEDS: MONTELUKAST 10 MG TAB PO SCH (20:30)
[2023-05-09] MEDS: SENNOSIDES-DOCUSATE SODIUM 1 EACH TAB PO SCH (20:30)
[2023-05-09] MEDS: INSULIN DETEMIR (LEVEMIR) 100 UNIT/ML SYR SQ SCH (20:30)
[2023-05-09] MEDS ORDERED: METOPROLOL TARTRATE 12.5 MG TAB PO SCH (21:00)
[2023-05-10 06:07] LABS: Anisocytosis Slight; Basophils % (A) 0 %; Eosinophils # (A) 0.2 k/uL (0-0.7); Eosinophils % (A) 2 %; HGB 10.9 gm/dL (11.4-16.0); Hypochromasia Slight; Lymphocytes # (A) 1.4 k/uL (1.0-4.8); Lymphocytes % (A) 16 %; MCH 29.8 pg (25.0-35.0); MCHC 32.9 g/dL (31.0-37.0); MCV 90.6 fL (80.0-100.0); Mean Platelet Volume 8.9; Monocytes # (A) 0.4 k/uL (0-1.0); Monocytes % (A) 4 %; Neutrophils % (A) 76 %; Platelet Count 191 k/uL (150-450); RBC 3.64 m/uL (3.80-5.40); RDW 16.2 % (11.5-15.5); WBC 9.3 k/uL (3.8-10.6)
[2023-05-10 06:10] LABS: Glucose,Whole Blood 146 mg/dL (70-110)
[2023-05-10 06:16] LABS: ALT 16 U/L (4-34); AST 29 U/L (14-36); African American GFR (CKD) >90 (>60 ml/min/1.73 sqM); Albumin 2.8 g/dL (3.5-5.0); Alkaline Phosphatase 86 U/L (38-126); Anion Gap 9 mmol/L; Blood Urea Nitrogen 15 mg/dL (7-17); Calcium 8.2 mg/dL (8.4-10.2); Carbon Dioxide 20 mmol/L (22-30); Chloride 107 mmol/L (98-107); Glucose 146 mg/dL (74-99); Non-African American GFR(CKD) 82 (>60 ml/min/1.73 sqM); Potassium 3.9 mmol/L (3.5-5.1); Sodium 136 mmol/L (137-145); Total Bilirubin 1.4 mg/dL (0.2-1.3)
[2023-05-10] MEDS: KETOROLAC 15 MG/ML 1 ML VIAL IVP SCH ×4 (06:38→23:31)
[2023-05-10] MEDS: PANTOPRAZOLE 40 MG TABLET PO SCH (06:38)
[2023-05-10] MEDS: INSULIN ASPART (NovoLOG) 100 UNIT/ML VIAL SQ SCH ×7 (06:38→20:27)
[2023-05-10] MEDS: LEVOTHYROXINE 50 MCG TAB PO SCH (06:38)
[2023-05-10] MEDS: MIDODRINE 5 MG TAB PO SCH ×3 (06:39→16:32)
[2023-05-10] MEDS: IPRATROPIUM-ALBUTEROL 3 ML NEB INHALATION SCH ×4 (07:47→19:36)
[2023-05-10] MEDS: SYMBICORT 80-4.5 MCG INHALER INHALATION SCH ×2 (07:48→19:36)
--- NOTE | 2023-05-10 07:48 | XR ---
EXAMINATION TYPE: XR chest 1V portable DATE OF EXAM: 05/10/2023 5:56 AM COMPARISON: Chest radiographs from 05/09/2023 TECHNIQUE: XR chest 1V portable Portable AP radiograph of the chest. CLINICAL INDICATION:Female, 62 years old with history of post cardiac surgery; FINDINGS: Lungs/Pleura: No appreciable pneumothorax. Linear atelectasis and/or scarring within the left midlung . Small to moderate left pleural effusion. Small right pleural effusion. Pulmonary vascularity: Mild pulmonary vascular congestion. Heart/mediastinum: Cardiomediastinal silhouette is enlarged and stable. Atherosclerotic calcificatio ns are seen in the aorta. Post CABG changes. Left atrial appendage occlusion device is present. Musculoskeletal: No acute osseous pathology. Midline sternotomy wires are noted and stable. Other findings: None Lines/Tubes: Bilateral chest tubes are in stable position. Right IJ sheath remains in place. Interval level of med iastinal drain. IMPRESSION: 1. Bilateral chest tubes. No appreciable pneumothorax. 2. Interval removal of mediastinal drain. 3. CHF with ongoing pulmonary vascular congestion and small to moderate size left pleural effusion a nd small right pleural effusion.
[2023-05-10] MEDS ORDERED: POTASSIUM CHLORIDE ER 20 MEQ TAB.ER PO SCH (08:00)
[2023-05-10] MEDS: CLOPIDOGREL 75 MG TAB PO SCH (08:07)
[2023-05-10] MEDS: METOPROLOL TARTRATE 12.5 MG TAB PO SCH ×2 (08:07→20:28)
[2023-05-10] MEDS: AMIODARONE 200 MG TAB PO SCH ×2 (08:07→20:27)
[2023-05-10] MEDS: ATORVASTATIN 40 MG TAB PO SCH (08:07)
[2023-05-10] MEDS: HEPARIN SODIUM,PORCINE 5,000 UNIT/ML 1 ML VIAL SQ SCH ×3 (08:07→23:31)
[2023-05-10] MEDS: ASPIRIN 325 MG TAB PO SCH (08:08)
[2023-05-10] MEDS: ACETAMINOPHEN TAB 325 MG TAB PO PRN (09:15)
--- NOTE | 2023-05-10 09:30 | P.PN ---
Subjective Progress Note Date: 05/10/23 I am seeing this patient in consultation today 05/06/2023 on the cardiac stepdown unit for preoperative pulmonary clearance in preparation for open heart surgery to be done on May 07. Patient is a 62-year-old white female with past medical history significant for hypertension, hyperlipidemia, diabetes mellitus type 2, asthma, obesity, hypothyroidism. Patient does have a significant familial history of premature coronary artery disease and WI. She does follow with a nurse practitioner out of Dr. Holden Fitzgerald's office. Patient was awakened in the middle the night with severe substernal chest pain starting on 05/04/2023. She presented originally to [facility] and was diagnosed with a non-ST elevation WI. She was also in atrial fibrillation with RVR at that time. She did undergo heart catheterization at outside facility and was found to have severe multivessel coronary artery disease. Patient was then transferred to [facility] for surgical revascularization, which is scheduled this May 07. We were consulted for preoperative pulmonary clearance and postoperative ventilator management during her recovery. A bedside spirometry showed a FEV1 of 0.92 liters or 38%. Based on this, she is at a moderate increased intraoperative risk. Patient states that she takes as needed albuterol and was recently prescribed Breztri by her PCP, but has not started it. She actually denies any history of asthma or COPD. She does report severe seasonal ALLERGIES and is ALLERGIC to pet dander among other things. She also reports a significant smoking history of 1.5 pack per day since she was a teenager. Chest x-ray outside facility reportedly showed no acute cardiopulmonary disease process. Patient is currently sitting up in bed, on 2 L/m nasal cannula, in no acute distress. SpO2 reading 95%. She is currently on IV heparin per protocol and normal saline is infusing at 75 mL per hour. She denies any further chest pain. She denies any pulmonary complaints. Most recent BMP shows sodium 140, potassium 3.8, chloride 110, serum bicarb 24, BUN 8, creatinine 0.65, glucose 120. LFTs mildly elevated. APTT subtherapeutic at 33.8. Patient is currently being monitored on the cardiac stepdown unit and is undergoing an extensive preoperative work up. The patient is seen today 05/07/2023 in follow-up in the intensive care unit. She had recently returned from surgery. She had undergone an off-pump coronary artery bypass grafting 3 utilizing a DURBIN to the LAD, right artery from aorta to ramus intermedius and a saphenous vein graft from the aorta to posterior descending coronary artery. Left atrial ligation using an Atriclip. She is currently sedated on the mechanical ventilator and assist control mode at a rate of 14, tidal volume 400, FiO2 100% and a PEEP of 10. Blood gases revealed a pO2 of 181, pCO2 of 51 and a pH is 7.25. Her respiratory rate was increased to 18. Cardiac output 4.6. Cardiac index 2.4. She is receiving lactated Ringer's at 50 MLS per hour. Sedated with propofol at 20 mcg/kg/m. On a nitroglycerin drip at 5 mg/m. Insulin drip at 1.5 units per hour. Mediastinal and right and left pleural chest tubes are in place. Chest x-ray reviewed. Blood sugar 138. Other labs are pending. The patient is seen today 05/08/2023 in follow-up in the intensive care unit. Postoperative day #1. She is currently awake and alert in no acute distress. Sitting up in a chair at the bedside. She is maintaining good O2 saturations in the 90s on 4 L/m per nasal cannula. She is requiring insulin drip at 6 units per hour. She is on amiodarone at 0.5 mg/m. She has lactated Ringer's at 50 MLS per hour. Cardiac output 4.1. Cardiac index 2.1. Mediastinal and left and right chest tubes remain in place. Right radial arterial line in place. Divide- Iftikhar catheter to the right IJ in place. Epicardial pacer wires in place. Backup pacing at 50. Chest x-ray continues to show some pulmonary vascular congestion with a [id number] left pleural effusion and adjacent atelectasis. No pneumothorax. White count 12.7. Hemoglobin 10.4. Platelets 148. Sodium 138. Potassium 4.2. Bicarb 21. BUN 10. Creatinine 0.65. Glucose 120. AST 37. ALT 18. Albumin 3.1. Ionized calcium 4.6. Magnesium 2.1. She remains on bronchodilators. Working well with the incentive spirometer. Heparin for DVT prophylaxis. She is currently in a -2.1 L balance. The patient is seen today 05/09/2023 in follow-up in the intensive care unit. Postoperative day #2. She is currently sitting up in a chair. Awake and alert in no acute distress. Denies any worsening shortness, cough or congestion. Chest x-ray is showing some significant atelectasis in the left lower lobe. She is working with the incentive spirometer. She has been up ambulating in the hallway. She is requiring insulin at 5.5 units per hour. Lactated Ringer's at 20 ML's per hour. Mediastinal, right and left chest tubes remain in place. Right IJ cordis remains in place. Indwelling Mckinney catheter remains in place. She is maintaining good O2 saturations in the 90s on 2 L/m per nasal cannula. Continued on DuoNeb inhalations, Symbicort and Singulair. Heparin for DVT prophylaxis. She is currently in a -1.1 L balance. The patient is seen today 05/10/2023 in follow-up in the intensive care unit. Postoperative day #3. She is awake and alert in no acute distress. She is currently sitting up in a chair at the bedside. Denies any worsening shortness of breath, cough or congestion. Chest x-ray showing similar findings of atel ectasis in the left lower lobe. She is working with the incentive spirometer. She ambulated in the hallway 3 times yesterday and once this morning. She has right and left mediastinal chest tubes in place. Right IJ Cordis in place. Lactated Ringer's at 20 ML's per hour. She is continued on bronchodilators. Heparin for DVT prophylaxis. White count 9.3. Hemoglobin 10.9. Platelets 191. Sodium 136. Potassium 3.9. Bicarb 20. BUN 15. Creatinine 0.77. Glucose 146. Currently in a -650 ML balance. Objective - Vital Signs Vital signs: Vital Signs Temp 98.3 F 05/10/23 08:00 Pulse 88 05/10/23 09:00 Resp 24 05/10/23 09:00 BP 120/57 05/10/23 09:00 Pulse Ox 95 05/10/23 07:00 FiO2 50 05/07/23 18:00 Intake & Output 05/09/23 05/10/23 05/10/23 18:59 06:59 18:59 Intake Total 874.732 299 446 Output Total 865 960 50 Balance 9.732 -661 396 Weight 92.6 kg Intake: IV 253 299 46 Lactated Ringers 1,000 ml 220 260 40 @ 20 mls/hr IV .Q24H [facility] Rx#:[id number] Pressure Bag (0.9 Sodium 33 39 6 Chloride) Intake, IV Titration 21.732 Amount Insulin Regular 100 unit 21.732 In Sodium Chloride 0.9% 100 ml @ Per Protocol IV .Q0M [facility] Rx#:[id number] Oral 600 400 Output: Chest Tube Drainage 150 160 Chest Tube Bilateral 0 Lateral Chest Chest Tube Mediastinal [address] 30 30 Urine 715 800 50 Other: Voiding Method Toilet Toilet Toilet # Voids 1 ABP, PAP, CO, CI - Last Documented Arterial Blood Pressure 116/57 Pulmonary Artery Pressure 27/14 Cardiac Output 4.1 Cardiac Index 2.1 - Exam GENERAL EXAM: Awake, 62-year-old female, 2 L nasal cannula, up in a chair, in no apparent distress. HEAD: Normocephalic. EYES: Normal reaction of pupils, equal size. NOSE: Clear with pink turbinates. THROAT: No erythema or exudates. NECK: Right IJ Cordis in place. No masses, no JVD. CHEST: Sternal dressing dry and intact. Right and left pleural chest tubes in place. Epicardial wires in place. LUNGS: Equal air entry with no crackles, wheeze, rhonchi or dullness. CVS: S1 and S2 normal with no audible murmur, regular rhythm. ABDOMEN: No hepatosplenomegaly, normal bowel sounds, no guarding or rigidity. SPINE: No scoliosis or deformity SKIN: No rashes CENTRAL NERVOUS SYSTEM: No focal deficits, tone is normal in all 4 extremities. EXTREMITIES: SCDs to the lower extremities. No clubbing, no cyanosis. Peripheral pulses are intact. - Labs CBC & Chem 7: 05/10/23 05:52 05/10/23 05:52 Labs: Abnormal Lab Results - Last 24 Hours (Table) 05/09/23 05/09/23 05/09/23 Range/Units 10:02 11:35 12:43 RBC (3.80-5.40) m/uL Hgb (11.4-16.0) gm/dL Hct (34.0-46.0) % RDW (11.5-15.5) % Sodium (137-145) mmol/L Carbon Dioxide (22-30) mmol/L Glucose (74-99) mg/dL POC Glucose (mg/dL) 147 H 111 H 200 H (70-110) mg/dL Calcium (8.4-10.2) mg/dL Total Bilirubin (0.2-1.3) mg/dL Total Protein (6.3-8.2) g/dL Albumin (3.5-5.0) g/dL 05/09/23 05/09/23 05/10/23 Range/Units 16:28 20:27 05:52 RBC 3.64 L (3.80-5.40) m/uL Hgb 10.9 L (11.4-16.0) gm/dL Hct 33.0 L (34.0-46.0) % RDW 16.2 H (11.5-15.5) % Sodium (137-145) mmol/L Carbon Dioxide (22-30) mmol/L Glucose (74-99) mg/dL POC Glucose (mg/dL) 176 H 172 H (70-110) mg/dL Calcium (8.4-10.2) mg/dL Total Bilirubin (0.2-1.3) mg/dL Total Protein (6.3-8.2) g/dL Albumin (3.5-5.0) g/dL 05/10/23 05/10/23 Range/Units 05:52 06:08 RBC (3.80-5.40) m/uL Hgb (11.4-16.0) gm/dL Hct (34.0-46.0) % RDW (11.5-15.5) % Sodium 136 L (137-145) mmol/L Carbon Dioxide 20 L (22-30) mmol/L Glucose 146 H (74-99) mg/dL POC Glucose (mg/dL) 146 H (70-110) mg/dL Calcium 8.2 L (8.4-10.2) mg/dL Total Bilirubin 1.4 H (0.2-1.3) mg/dL Total Protein 5.0 L (6.3-8.2) g/dL Albumin 2.8 L (3.5-5.0) g/dL Assessment and Plan Assessment: Non-ST elevation myocardial infarction Severe multivessel coronary artery disease, status post off-pump coronary artery bypass grafting 3. Postoperative day #3 Suspected COPD/asthma, stable Hyperlipidemia Hypertension Left internal carotid artery stenosis, estimated at 50-69%, based on carotid duplex ultrasound Diabetes mellitus type 2 Hypothyroidism Obesity with a BMI of 35.0kg/m Chronic ongoing tobacco dependence, currently smoking 1.5 packs per day Plan: The patient was seen and evaluated Chest x-ray, labs and medications reviewed Again encouraged the increased use of the incentive spirometer Increase her activity as tolerated Continue bronchodilators Heparin for DVT prophylaxis We will continue to follow I have personally seen and examined the patient, performed the documentation and the assessment and plan as written. Number of minutes spent on the visit: 10.
--- NOTE | 2023-05-10 10:38 | P.PN ---
Subjective Progress Note Date: 05/10/23 Principal diagnosis: Coronary artery disease, NSTEMI this admission, new onset atrial fibrillation. History of hypertension, hyperlipidemia, left internal carotid artery stenosis, type 2 diabetes mellitus, hypothyroid, chronic ongoing tobacco dependence, severe COPD, asthma, chronic back pain, obesity, and family history of premature coronary artery disease. POD #3 off-pump coronary artery bypass graft 3 with left internal thoracic artery in situ to the left anterior descending coronary artery, radial artery from the aorta to the ramus intermedius artery, reverse saphenous vein graft from the aorta to the posterior descending coronary artery, endoscopic left radial and left greater saphenous vein harvest, left atrial appendage ligation using a 35 mm AtriClip, intraoperative graft flow measurements using the IntervalZero flowmeter system, intraoperative transesophageal echocardiogram performed by anesthesia Postoperative acute blood loss anemia and thrombocytopenia, expected given hemodilution The patient was seen and examined this morning sitting up in bed in the intensive care unit in no acute distress. Remains in sinus rhythm, hemodynamically stable on no inotropes or pressors. She was started on midodrine to keep her BP up enough to be able to give her beta daniel. States pain is controlled on current medication regimen, denies shortness of breath. R emains on 2 L nasal cannula with oxygen saturation in the mid 90s, able to achieve 750 mL on incentive spirometry. Labs, CXR reviewed. Right internal jugular cordis, right/left pleural chest tubes remain. Patient has ambulated in the hallway without difficulty. No other new concerns. Objective - Vital Signs Vital signs: Vital Signs Temp 98.3 F 05/10/23 08:00 Pulse 80 05/10/23 10:00 Resp 20 05/10/23 10:00 BP 116/61 05/10/23 10:00 Pulse Ox 96 05/10/23 10:00 FiO2 50 05/07/23 18:00 Intake & Output 05/09/23 05/10/23 05/10/23 18:59 06:59 18:59 Intake Total 874.732 299 469 Output Total 865 960 50 Balance 9.732 -661 419 Weight 92.6 kg Intake: IV 253 299 69 Lactated Ringers 1,000 ml 220 260 60 @ 20 mls/hr IV .Q24H [facility] Rx#:[id number] Pressure Bag (0.9 Sodium 33 39 9 Chloride) Intake, IV Titration 21.732 Amount Insulin Regular 100 unit 21.732 In Sodium Chloride 0.9% 100 ml @ Per Protocol IV .Q0M [facility] Rx#:[id number] Oral 600 400 Output: Chest Tube Drainage 150 160 Chest Tube Bilateral 0 Lateral Chest Chest Tube Mediastinal [address] 30 30 Urine 715 800 50 Other: Voiding Method Toilet Toilet Toilet # Voids 1 ABP, PAP, CO, CI - Last Documented Arterial Blood Pressure 116/57 Pulmonary Artery Pressure 27/14 Cardiac Output 4.1 Cardiac Index 2.1 - Exam CONSTITUTIONAL: Appears comfortable, cooperative, no acute distress RESPIRATORY: Lungs sounds diminished bilaterally. Respirations even, nonlabored. Currently on 2 L nasal cannula with oxygen saturation 96%. Able to achieve 750 mL on incentive spirometry. Strong cough. CARDIOVASCULAR: S1, S2 present. Regular rate and rhythm, sinus rhythm on telemetry. Sternum stable. Palpable peripheral pulses bilaterally. Trace generalized edema present. No calf pain or tenderness noted. Heart hugger in place with patient demonstrating appropriate use. Antiembolism stockings, SCDs present. GASTROINTESTINAL: Abdomen soft, nontender, nondistended. Active bowel sounds present 4 quadrants. Tolerating diet. Positive flatus GENITOURINARY: Mckinney discontinued yesterday, continues to void clear yellow urine. Output 1515 mL in the last 24 hours INTEGUMENTARY: Skin is warm and dry with evidence of good perfusion. Anterior chest incision well approximated and covered with dry intact dressing. Left lower extremity EVH as well as left radial artery harvest site well approximated without redness or drainage. NEUROLOGIC: Cranial nerves II through XII intact MUSKULOSKELETAL: Able to move all extremities, strength equal bilaterally PSYCHIATRIC: Alert and oriented to person place and time, appropriate affect, intact judgment and insight INVASIVE LINES AND TUBES: Left/right pleural chest tubes present and connected to wall suction, no air leaks present. Right pleural chest tube with 30 mL serosanguineous drainage overnight, 100 mL in the last 24 hours. Left pleural chest tube with 130 mL serosanguineous drainage overnight, 300 mL in the last 24 hours. Ventricular epicardial pacemaker wire present, grounded. Right internal jugular cordis present, oozy around the site - Allied health notes Allied health notes reviewed: nursing - Labs CBC & Chem 7: 05/10/23 05:52 05/10/23 05:52 Labs: Abnormal Lab Results - Last 24 Hours (Table) 05/09/23 05/09/23 05/09/23 Range/Units 11:35 12:43 16:28 RBC (3.80-5.40) m/uL Hgb (11.4-16.0) gm/dL Hct (34.0-46.0) % RDW (11.5-15.5) % Sodium (137-145) mmol/L Carbon Dioxide (22-30) mmol/L Glucose (74-99) mg/dL POC Glucose (mg/dL) 111 H 200 H 176 H (70-110) mg/dL Calcium (8.4-10.2) mg/dL Total Bilirubin (0.2-1.3) mg/dL Total Protein (6.3-8.2) g/dL Albumin (3.5-5.0) g/dL 05/09/23 05/10/23 05/10/23 Range/Units 20:27 05:52 05:52 RBC 3.64 L (3.80-5.40) m/uL Hgb 10.9 L (11.4-16.0) gm/dL Hct 33.0 L (34.0-46.0) % RDW 16.2 H (11.5-15.5) % Sodium 136 L (137-145) mmol/L Carbon Dioxide 20 L (22-30) mmol/L Glucose 146 H (74-99) mg/dL POC Glucose (mg/dL) 172 H (70-110) mg/dL Calcium 8.2 L (8.4-10.2) mg/dL Total Bilirubin 1.4 H (0.2-1.3) mg/dL Total Protein 5.0 L (6.3-8.2) g/dL Albumin 2.8 L (3.5-5.0) g/dL 05/10/23 Range/Units 06:08 RBC (3.80-5.40) m/uL Hgb (11.4-16.0) gm/dL Hct (34.0-46.0) % RDW (11.5-15.5) % Sodium (137-145) mmol/L Carbon Dioxide (22-30) mmol/L Glucose (74-99) mg/dL POC Glucose (mg/dL) 146 H (70-110) mg/dL Calcium (8.4-10.2) mg/dL Total Bilirubin (0.2-1.3) mg/dL Total Protein (6.3-8.2) g/dL Albumin (3.5-5.0) g/dL - Imaging and Cardiology Chest x-ray: report reviewed, image reviewed Assessment and Plan Assessment: Coronary artery disease, NSTEMI this admission, status post off-pump present three-vessel CABG New onset atrial fibrillation, currently sinus, status post left atrial appendage ligation History of hypertension Hyperlipidemia, treated, cholesterol 126, LDL 44, triglycerides 218 Left internal carotid artery stenosis, 50-69% Type 2 diabetes mellitus, preoperative hemoglobin A1c 7.3% Hypothyroid Chronic ongoing tobacco dependence Severe COPD, preoperative FEV1 38% of predicted Asthma Chronic back pain Obesity Family history of premature coronary artery disease Postoperative acute blood loss anemia and thrombocytopenia, expected Plan: Continue to maximize medical therapy with aspirin, statin, Plavix, beta daniel. Will increase beta daniel therapy as tolerated. Continue midodrine to support blood pressure Continue amiodarone for A. fib prophylaxis, will taper weekly Continue low-dose calcium channel daniel for radial artery spasm prophylaxis with hold parameters Wean O2 as tolerated. Encourage incentive spirometry use to times every hour while awake, bronchodilators per pulmonology Increase activity, ambulate as tolerated. PT/OT/cardiac rehab consulted Will monitor daily labs and x-rays. Electrolyte replacement per protocol, no lasix today GI/DVT prophylaxis Pain control with current medication regimen Insulin management per internal medicine. Patient is diabetic with preoperative hemoglobin A1c 7.3%. Needs tight blood sugar control Will discontinue right chest tube, keep left pleural tubes for another 24 hours, monitor output Continue to record strict accurate intake and output Daily weights Ground epicardial pacer wires Will place transfer orders for [facility] cardiac stepdown unit, may transfer when bed available Discharge planning in progress, anticipated discharge to home in 48-72 hours More recommendations to follow
--- NOTE | 2023-05-10 10:52 | P.PN ---
Subjective Progress Note Date: 05/10/23 Patient endorsed to [facility] at 8:44AM on 05/05. 62-year-old female with PMH of diabetes mellitus, hypertension, dyslipidemia, hypothyroidism presented to [facility] for chest pain that started Thursday night around 12:30AM. Chest pain described as pressure like, radiating to the bilateral jaws. Cardiac cath showed 90% stenosis of her proximal left anterior descending artery, 40-50% stenosis to her mid left anterior descending coronary, a small diagonal branch #1 with a 80-90% stenosis, a 30-40% stenosis to the mid segment of her right coronary artery and a 90% stenosis to the proximal PDA coronary artery. She was transferred to [facility] for NSTEMI and Cardiothoracic surgery evaluation for CABG. She reports smoking 1 pack of cigarettes daily since 17 years old. Currently workup done at [facility] includes: Vein mapping US. Carotid doppler shows 50-69% stenosis left ICA, < 50% right ICA. LANEY shows borderline abnormal right LANEY, normal left LANEY. 05/06 Patient was seen and examined. Plans for CABG tomorrow. Reports anxiety. No chest pain. Currently on heparin drip. EKG shows sinus rhythm with moderate ST depression. 05/07 Patient was seen and examined post op in the ICU. Underwent CABG today. Intubated rate 18, TV 400, PEEP of 10, FiO2 50%. On Nitro drip 5 mcg/min. Amiodarone drip 1 mg/min. Insulin drip 3 units/hr. NS at 50 cc/hr. Clevidipine drip at 2 mg/hr. CBC shows Hg 10.3 Plt 127. INR 1.1. ABG pH 7.25, pCO2 51. CMP Cl 112, bicarb 21, glucose 139, Ca 7.1, ionized Ca 4.3, albumin 3.2. CXR shows post surgical changes. 05/08 Patient was seen and examined. Extubated successfully 05/07. Complains of some chest soreness and N/V. On clear liquid diet. Currently on NS at 30 cc/hr and Amiodarone drip at 0.5 mg/min. Nitro and Clevidipine drip discontinued. Pulmonology and CT surgery note reviewed. CBC shows WBC 12.7, Hg 10.4, Plt 148. CMP Cl 109, bicarb 21, glucose 120, Ca 7.6, T. Bili 1.5, AST 37, albumin 3.1. CXR shows right IJ, pulmonary vascular congestion, bilateral chest tube. 05/09 Patient was seen and examined. Reports some chest soreness but otherwise doing well. Amiodarone drip discontinued. Currently on insulin drip at 5.5 units/hr. I will stop the insulin drip and transition her to SQ insulin. Plans to discontinue Mckinney and mediastinal tube. Pulmonology and CT surgery note reviewed. CBC shows Hg 10.6. CMP Na 136, bicarb 19, glucose 132, Ca 8.2, T. Bili 2.1, AST 37, albumin 2.9. CXR shows pleural effusion, pulmonary vascular c ongestion, bilateral chest tube. 05/10 Patient was seen and examined. She is on ASA, Lipitor and Plavix. She is on Amiodarone. She is on Levimir and Novolog for insulin coverage. Pulmonology and CT surgery note reviewed. CBC shows Hg 10.9. CMP Na 136, bicarb 20, glucose 146, Ca 8.2, T. Bili 1.4, albumin 2.8. Plans to discontinue the R chest tube today. Urinating freely. No bowel movement but passing gas. CXR reviewed, similar in appearance to yesterdays findings. General: Sternal dressing c/d/i. L pleural tube intact. Derm: warm, dry Head: atraumatic, normocephalic, symmetric Eyes: EOMI, no lid lag, anicteric sclera Mouth: no lip lesion, mucus membranes moist Cardiovascular: S1S2 reg, no murmur Lungs: Coarse BS bilateral, no rhonchi, no rales , no accessory muscle use Ext: no gross muscle atrophy, no edema, no contractures Neuro: No FND Psych: Alert and oriented Acute hypoxic respiratory failure NSTEMI status post CABG 05/07 Acute blood loss anemia Transaminitis Hypocalcemia Resolved: Hypomagnesemia Chronic conditions: hypertension, dyslipidemia, hypothyroidism Based on my assessment of this patient, this patient meets a high complexity level of care. Patient has an acute diagnosis of NSTEMI that poses a threat to life or bodily function. Acute hypoxic respiratory failure: Wean O2. NSTEMI: Status post CABG 05/07. ASA 325 mg PO QD. Lipitor 40 mg PO QD. Plavix 75 mg PO QD. Metoprolol 25 mg PO BID. Telemetry monitoring. Cardiology and CT surgery on board. Diabetes mellitus: POC glucose 111-200. Levimir 20 units QHS. Novolog 6 units TID. Accuchecks ACHS. Acute blood loss anemia: Expected result of surgery. Daily CBC. Transfuse if Hg < 7. Transaminitis: Mild elevation. Likley hepatic steotosis. Nonobstructive. Hepatitis panel negative. Hypomagnesemia: Replace via protocol. Hypocalcemia: Pseudo when corrected for albumin. I have reviewed the following oracle bpm consultant notes: Cardiothoracic surgery, Pulm note. I have reviewed the results of the following tests: CBC, CMP. I have ordered the following tests: I have discussed the care of this patient with the following independent historian: Discussed with RN. I have independently interpreted the following test below: CXR as above. I have discussed the management of this patient with the following physician: Objective - Vital Signs Vital signs: Vital Signs Temp 98.1 F 05/10/23 04:00 Pulse 92 05/10/23 07:00 Resp 35 H 05/10/23 07:00 BP 122/74 05/10/23 07:00 Pulse Ox 95 05/10/23 07:00 FiO2 50 05/07/23 18:00 Intake & Output 05/09/23 05/10/23 05/10/23 18:59 06:59 18:59 Intake Total 874.732 299 Output Total 865 960 Balance 9.732 -661 Weight 92.6 kg Intake: IV 253 299 Lactated Ringers 1,000 ml 220 260 @ 20 mls/hr IV .Q24H [facility] Rx#:[id number] Pressure Bag (0.9 Sodium 33 39 Chloride) Intake, IV Titration 21.732 Amount Insulin Regular 100 unit 21.732 In Sodium Chloride 0.9% 100 ml @ Per Protocol IV .Q0M [facility] Rx#:[id number] Oral 600 Output: Chest Tube Drainage 150 160 Chest Tube Bilateral 0 Lateral Chest Chest Tube Mediastinal [address] 30 30 Urine 715 800 Other: Voiding Method Toilet Toilet # Voids 1 ABP, PAP, CO, CI - Last Documented Arterial Blood Pressure 116/57 Pulmonary Artery Pressure 27/14 Cardiac Output 4.1 Cardiac Index 2.1 - Labs CBC & Chem 7: 05/10/23 05:52 05/10/23 05:52 Labs: Abnormal Lab Results - Last 24 Hours (Table) 05/09/23 05/09/23 05/09/23 Range/Units 08:28 10:02 11:35 RBC (3.80-5.40) m/uL Hgb (11.4-16.0) gm/dL Hct (34.0-46.0) % RDW (11.5-15.5) % Sodium (137-145) mmol/L Carbon Dioxide (22-30) mmol/L Glucose (74-99) mg/dL POC Glucose (mg/dL) 143 H 147 H 111 H (70-110) mg/dL Calcium (8.4-10.2) mg/dL Total Bilirubin (0.2-1.3) mg/dL Total Protein (6.3-8.2) g/dL Albumin (3.5-5.0) g/dL 05/09/23 05/09/23 05/09/23 Range/Units 12:43 16:28 20:27 RBC (3.80-5.40) m/uL Hgb (11.4-16.0) gm/dL Hct (34.0-46.0) % RDW (11.5-15.5) % Sodium (137-145) mmol/L Carbon Dioxide (22-30) mmol/L Glucose (74-99) mg/dL POC Glucose (mg/dL) 200 H 176 H 172 H (70-110) mg/dL Calcium (8.4-10.2) mg/dL Total Bilirubin (0.2-1.3) mg/dL Total Protein (6.3-8.2) g/dL Albumin (3.5-5.0) g/dL 05/10/23 05/10/23 05/10/23 Range/Units 05:52 05:52 06:08 RBC 3.64 L (3.80-5.40) m/uL Hgb 10.9 L (11.4-16.0) gm/dL Hct 33.0 L (34.0-46.0) % RDW 16.2 H (11.5-15.5) % Sodium 136 L (137-145) mmol/L Carbon Dioxide 20 L (22-30) mmol/L Glucose 146 H (74-99) mg/dL POC Glucose (mg/dL) 146 H (70-110) mg/dL Calcium 8.2 L (8.4-10.2) mg/dL Total Bilirubin 1.4 H (0.2-1.3) mg/dL Total Protein 5.0 L (6.3-8.2) g/dL Albumin 2.8 L (3.5-5.0) g/dL
[2023-05-10 11:40] LABS: Glucose,Whole Blood 126 mg/dL (70-110)
[2023-05-10] MEDS: amLODIPine 2.5 MG TAB PO SCH (11:57)
--- NOTE | 2023-05-10 12:19 | PN ---
PROGRESS NOTE HISTORY OF PRESENT ILLNESS: Angela is a 62-year-old lady, who is admitted to ICU, who has CAD, status post CABG, postop day #3. Her hypotension has improved, but she is still on midodrine and midodrine dose had been increased. She is, otherwise, doing well, remains in sinus rhythm, and is free of cardiac symptoms. MEDICATIONS: The patient is currently on: 1. Amiodarone. 2. Norvasc 2.5 mg daily. 3. Lipitor 40 mg daily. 4. Aspirin. 5. Plavix 75 mg daily. 6. Lopressor 25 b.i.d. PHYSICAL EXAMINATION: GENERAL: Comfortable at rest. VITAL SIGNS: Stable. CHEST: Reveals diminished air entry at the bases. HEART: Reveals first and second heart sounds. No gallop. No murmur. ABDOMEN: Soft. EXTREMITIES: Exam of extremities did not reveal any edema. Peripheral pulses are felt. LABORATORY DATA: Labs show a hemoglobin of 10.9, platelet count is 190. Potassium is 3.9, creatinine is 0.7. ASSESSMENT: 1. Coronary artery disease, status post coronary artery bypass graft, postop day #3. 2. Hypertension. PLAN: The patient is doing well, continue current medications, and transfer out of ICU. MMODL / IJN: [id number] /
[2023-05-10 16:26] LABS: Glucose,Whole Blood 220 mg/dL (70-110)
[2023-05-10 20:25] LABS: Glucose,Whole Blood 175 mg/dL (70-110)
[2023-05-10] MEDS: MONTELUKAST 10 MG TAB PO SCH (20:27)
[2023-05-10] MEDS: INSULIN DETEMIR (LEVEMIR) 100 UNIT/ML SYR SQ SCH (20:27)
[2023-05-10] MEDS: SENNOSIDES-DOCUSATE SODIUM 1 EACH TAB PO SCH (20:37)
[2023-05-11 04:50] LABS: Anisocytosis Slight; HCT 30.7 % (34.0-46.0); Hypochromasia Slight; MCH 29.2 pg (25.0-35.0); MCHC 32.4 g/dL (31.0-37.0); Mean Platelet Volume 10.5; Platelet Count 179 k/uL (150-450); RBC 3.41 m/uL (3.80-5.40); RDW 16.4 % (11.5-15.5); WBC 8.4 k/uL (3.8-10.6)
[2023-05-11 04:59] LABS: African American GFR (CKD) >90 (>60 ml/min/1.73 sqM); Anion Gap 8 mmol/L; Blood Urea Nitrogen 19 mg/dL (7-17); Calcium 8.1 mg/dL (8.4-10.2); Carbon Dioxide 21 mmol/L (22-30); Chloride 109 mmol/L (98-107); Glucose 124 mg/dL (74-99); Non-African American GFR(CKD) >90 (>60 ml/min/1.73 sqM); Potassium 4.1 mmol/L (3.5-5.1); Sodium 138 mmol/L (137-145)
[2023-05-11] MEDS: KETOROLAC 15 MG/ML 1 ML VIAL IVP SCH ×3 (06:28→17:34)
[2023-05-11] MEDS: MIDODRINE 5 MG TAB PO SCH ×3 (06:28→17:34)
[2023-05-11] MEDS: PANTOPRAZOLE 40 MG TABLET PO SCH (06:28)
[2023-05-11] MEDS: LEVOTHYROXINE 50 MCG TAB PO SCH (06:28)
[2023-05-11] MEDS: INSULIN ASPART (NovoLOG) 100 UNIT/ML VIAL SQ SCH ×7 (06:28→20:52)
[2023-05-11 06:55] LABS: Glucose,Whole Blood 137 mg/dL (70-110)
--- NOTE | 2023-05-11 07:19 | P.PN ---
Subjective Progress Note Date: 05/11/23 Principal diagnosis: Coronary artery disease, NSTEMI this admission, new onset atrial fibrillation. History of hypertension, hyperlipidemia, left internal carotid artery stenosis, type 2 diabetes mellitus, hypothyroid, chronic ongoing tobacco dependence, severe COPD, asthma, chronic back pain, obesity, and family history of premature coronary artery disease. POD #4 off-pump coronary artery bypass graft 3 with left internal thoracic artery in situ to the left anterior descending coronary artery, radial artery from the aorta to the ramus intermedius artery, reverse saphenous vein graft from the aorta to the posterior descending coronary artery, endoscopic left radial and left greater saphenous vein harvest, left atrial appendage ligation using a 35 mm AtriClip, intraoperative graft flow measurements using the SciGit flowmeter system, intraoperative transesophageal echocardiogram performed by anesthesia Postoperative acute blood loss anemia and thrombocytopenia, expected given hemodilution The patient was seen and examined this morning sitting up in bed in the intensive care unit in no acute distress. Remains in sinus rhythm, hemodynamically stable. States pain is controlled on current medication regimen, mostly hurts when she coughs, denies shortness of breath. Remains on 2 L nasal cannula with oxygen saturation in the low to mid 90s, on room air oxygen saturation is 86% at rest, able to achieve 750 mL on incentive spirometry. Labs, CXR reviewed. Left pleural chest tube remains. Patient has ambulated in the hallway without difficulty. Transfer orders were placed yesterday for [facility], no beds available. No other new concerns. Objective - Vital Signs Vital signs: Vital Signs Temp 98.2 F 05/11/23 04:00 Pulse 79 05/11/23 04:00 Resp 27 H 05/11/23 04:00 BP 119/80 05/11/23 04:00 Pulse Ox 93 L 05/11/23 04:00 FiO2 50 05/07/23 18:00 Intake & Output 05/10/23 05/11/23 05/11/23 18:59 06:59 18:59 Intake Total 1369 Output Total 120 400 Balance 1249 -400 Weight 92.7 kg Intake: IV 69 Lactated Ringers 1,000 ml 60 @ 20 mls/hr IV .Q24H [facility] Rx#:[id number] Pressure Bag (0.9 Sodium 9 Chloride) Oral 1300 Output: Chest Tube Drainage [address] 70 150 Urine 50 250 Other: Voiding Method Toilet Toilet # Voids 1 # Bowel Movements 1 ABP, PAP, CO, CI - Last Documented Arterial Blood Pressure 116/57 Pulmonary Artery Pressure 27/14 Cardiac Output 4.1 Cardiac Index 2.1 - Exam CONSTITUTIONAL: Appears comfortable, cooperative, no acute distress RESPIRATORY: Lungs sounds diminished bilaterally. Respirations even, nonlabored. Currently on 2 L nasal cannula with oxygen saturation 91%. Able to achieve 750 mL on incentive spirometry. Strong cough. CARDIOVASCULAR: S1, S2 present. Regular rate and rhythm, sinus rhythm on telemetry. Sternum stable. Palpable peripheral pulses bilaterally. No edema present. No calf pain or tenderness noted. Heart hugger in place with patient demonstrating appropriate use. Antiembolism stockings, SCDs present. GASTROINTESTINAL: Abdomen soft, nontender, nondistended. Active bowel sounds present 4 quadrants. Tolerating diet. Positive bowel movement 05/10 GENITOURINARY: Continues to void clear yellow urine although not measured every time INTEGUMENTARY: Skin is warm and dry with evidence of good perfusion. Anterior chest incision well approximated and covered with dry intact dressing. Left lower extremity EVH as well as left radial artery harvest site well approximated without redness or drainage. NEUROLOGIC: Cranial nerves II through XII intact MUSKULOSKELETAL: Able to move all extremities, strength equal bilaterally PSYCHIATRIC: Alert and oriented to person place and time, appropriate affect, intact judgment and insight INVASIVE LINES AND TUBES: Left pleural chest tube present and connected to wall suction, no air leaks present, 150 mL serosanguineous drainage overnight, 250 mL in the last 24 hours. Ventricular epicardial pacemaker wire present, grounded - Allied health notes Allied health notes reviewed: nursing - Labs CBC & Chem 7: 05/11/23 03:29 05/11/23 03:29 Labs: Abnormal Lab Results - Last 24 Hours (Table) 05/10/23 05/10/23 05/10/23 Range/Units 11:37 16:24 20:24 RBC (3.80-5.40) m/uL Hgb (11.4-16.0) gm/dL Hct (34.0-46.0) % RDW (11.5-15.5) % Chloride (98-107) mmol/L Carbon Dioxide (22-30) mmol/L BUN (7-17) mg/dL Glucose (74-99) mg/dL POC Glucose (mg/dL) 126 H 220 H 175 H (70-110) mg/dL Calcium (8.4-10.2) mg/dL 05/11/23 05/11/23 05/11/23 Range/Units 03:29 03:29 06:53 RBC 3.41 L (3.80-5.40) m/uL Hgb 10.0 L (11.4-16.0) gm/dL Hct 30.7 L (34.0-46.0) % RDW 16.4 H (11.5-15.5) % Chloride 109 H (98-107) mmol/L Carbon Dioxide 21 L (22-30) mmol/L BUN 19 H (7-17) mg/dL Glucose 124 H (74-99) mg/dL POC Glucose (mg/dL) 137 H (70-110) mg/dL Calcium 8.1 L (8.4-10.2) mg/dL - Imaging and Cardiology Chest x-ray: image reviewed Assessment and Plan Assessment: Coronary artery disease, NSTEMI this admission, status post off-pump present three-vessel CABG New onset atrial fibrillation, currently sinus, status post left atrial appendage ligation History of hypertension Hyperlipidemia, treated, cholesterol 126, LDL 44, triglycerides 218 Left internal carotid artery stenosis, 50-69% Type 2 diabetes mellitus, preoperative hemoglobin A1c 7.3% Hypothyroid Chronic ongoing tobacco dependence Severe COPD, preoperative FEV1 38% of predicted Asthma Chronic back pain Obesity Family history of premature coronary artery disease Postoperative acute blood loss anemia and thrombocytopenia, expected Plan: Continue to maximize medical therapy with aspirin, statin, Plavix, beta daniel. Will increase beta daniel therapy as tolerated. Continue midodrine to support blood pressure Continue amiodarone for A. fib prophylaxis, will taper weekly Continue low-dose calcium channel daniel for radial artery spasm prophylaxis with hold parameters Wean O2 as tolerated. Encourage incentive spirometry use to times every hour while awake, bronchodilators per pulmonology Increase activity, ambulate as tolerated. PT/OT/cardiac rehab consulted Will monitor daily labs and x-rays. Electrolyte replacement per protocol, likely will give lasix today GI/DVT prophylaxis Pain control with current medication regimen Insulin management per internal medicine. Patient is diabetic with preoperative hemoglobin A1c 7.3%. Needs tight blood sugar control Will discontinue left chest tube Will discontinue epicardial pacer wire, patient to remain on bedrest for 1 hour post wire removal Continue to record strict accurate intake and output Daily weights Patient to shower daily Transfer orders placed yesterday for [facility] cardiac stepdown unit, may transfer when bed available Discharge planning in progress, anticipated discharge to home in 24-48 hours More recommendations to follow
--- NOTE | 2023-05-11 07:50 | XR ---
EXAMINATION TYPE: XR chest 2V DATE OF EXAM: 05/11/2023 6:53 AM COMPARISON: Chest radiographs from 05/10/2023 TECHNIQUE: XR chest 2V Frontal and lateral views of the chest. CLINICAL INDICATION:Female, 62 years old with history of post cardiac surgery; FINDINGS: Lungs/Pleura: Small to moderate bilateral pleural effusions. Left mid upper lung linear atelectasis. No sizable pneumothorax. Pulmonary vascularity: Mild pulmonary vascular congestion. Heart/mediastinum: Cardiomediastinal silhouette is enlarged and stable. Atherosclerotic calcificatio ns are seen in the aorta. Left atrial appendage occlusion devices present. Post CABG changes. Musculoskeletal: No acute osseous pathology. Midline sternotomy wires are noted and stable. Other findings: None Lines/Tubes: Removal of right IJ sheath and right chest tube. Left chest tube remains in place. IMPRESSION: 1. Interval removal right chest tube. Left chest tube remains in place. No sizable pneumothorax. 2. Cardiomegaly with mild pulmonary congestion and similar small to moderate bilateral pleural effus ions.
--- NOTE | 2023-05-11 08:34 | P.PN ---
Subjective Progress Note Date: 05/11/23 I am seeing this patient in consultation today 05/06/2023 on the cardiac stepdown unit for preoperative pulmonary clearance in preparation for open heart surgery to be done on May 07. Patient is a 62-year-old white female with past medical history significant for hypertension, hyperlipidemia, diabetes mellitus type 2, asthma, obesity, hypothyroidism. Patient does have a significant familial history of premature coronary artery disease and HI. She does follow with a nurse practitioner out of Dr. Holden Fitzgerald's office. Patient was awakened in the middle the night with severe substernal chest pain starting on 05/04/2023. She presented originally to [facility] and was diagnosed with a non-ST elevation HI. She was also in atrial fibrillation with RVR at that time. She did undergo heart catheterization at outside facility and was found to have severe multivessel coronary artery disease. Patient was then transferred to [facility] for surgical revascularization, which is scheduled this May 07. We were consulted for preoperative pulmonary clearance and postoperative ventilator management during her recovery. A bedside spirometry showed a FEV1 of 0.92 liters or 38%. Based on this, she is at a moderate increased intraoperative risk. Patient states that she takes as needed albuterol and was recently prescribed Breztri by her PCP, but has not started it. She actually denies any history of asthma or COPD. She does report severe seasonal ALLERGIES and is ALLERGIC to pet dander among other things. She also reports a significant smoking history of 1.5 pack per day since she was a teenager. Chest x-ray outside facility reportedly showed no acute cardiopulmonary disease process. Patient is currently sitting up in bed, on 2 L/m nasal cannula, in no acute distress. SpO2 reading 95%. She is currently on IV heparin per protocol and normal saline is infusing at 75 mL per hour. She denies any further chest pain. She denies any pulmonary complaints. Most recent BMP shows sodium 140, potassium 3.8, chloride 110, serum bicarb 24, BUN 8, creatinine 0.65, glucose 120. LFTs mildly elevated. APTT subtherapeutic at 33.8. Patient is currently being monitored on the cardiac stepdown unit and is undergoing an extensive preoperative work up. The patient is seen today 05/07/2023 in follow-up in the intensive care unit. She had recently returned from surgery. She had undergone an off-pump coronary artery bypass grafting 3 utilizing a DURBIN to the LAD, right artery from aorta to ramus intermedius and a saphenous vein graft from the aorta to posterior descending coronary artery. Left atrial ligation using an Atriclip. She is currently sedated on the mechanical ventilator and assist control mode at a rate of 14, tidal volume 400, FiO2 100% and a PEEP of 10. Blood gases revealed a pO2 of 181, pCO2 of 51 and a pH is 7.25. Her respiratory rate was increased to 18. Cardiac output 4.6. Cardiac index 2.4. She is receiving lactated Ringer's at 50 MLS per hour. Sedated with propofol at 20 mcg/kg/m. On a nitroglycerin drip at 5 mg/m. Insulin drip at 1.5 units per hour. Mediastinal and right and left pleural chest tubes are in place. Chest x-ray reviewed. Blood sugar 138. Other labs are pending. The patient is seen today 05/08/2023 in follow-up in the intensive care unit. Postoperative day #1. She is currently awake and alert in no acute distress. Sitting up in a chair at the bedside. She is maintaining good O2 saturations in the 90s on 4 L/m per nasal cannula. She is requiring insulin drip at 6 units per hour. She is on amiodarone at 0.5 mg/m. She has lactated Ringer's at 50 MLS per hour. Cardiac output 4.1. Cardiac index 2.1. Mediastinal and left and right chest tubes remain in place. Right radial arterial line in place. [place]- Iftikhar catheter to the right IJ in place. Epicardial pacer wires in place. Backup pacing at 50. Chest x-ray continues to show some pulmonary vascular ekta estion with a [id number] left pleural effusion and adjacent atelectasis. No pneumothorax. White count 12.7. Hemoglobin 10.4. Platelets 148. Sodium 138. Potassium 4.2. Bicarb 21. BUN 10. Creatinine 0.65. Glucose 120. AST 37. ALT 18. Albumin 3.1. Ionized calcium 4.6. Magnesium 2.1. She remains on bronchodilators. Working well with the incentive spirometer. Heparin for DVT prophylaxis. She is currently in a -2.1 L balance. The patient is seen today 05/09/2023 in follow-up in the intensive care unit. Postoperative day #2. She is currently sitting up in a chair. Awake and alert in no acute distress. Denies any worsening shortness, cough or congestion. Chest x-ray is showing some significant atelectasis in the left lower lobe. She is working with the incentive spirometer. She has been up ambulating in the hallway. She is requiring insulin at 5.5 units per hour. Lactated Ringer's at 20 ML's per hour. Mediastinal, right and left chest tubes remain in place. Right IJ cordis remains in place. Indwelling Mckinney catheter remains in place. She is maintaining good O2 saturations in the 90s on 2 L/m per nasal cannula. Continued on DuoNeb inhalations, Symbicort and Singulair. Heparin for DVT prophylaxis. She is currently in a -1.1 L balance. The patient is seen today 05/10/2023 in follow-up in the intensive care unit. Postoperative day #3. She is awake and alert in no acute distress. She is currently sitting up in a chair at the bedside. Denies any worsening shortness of breath, cough or congestion. Chest x-ray showing similar findings of ate lectasis in the left lower lobe. She is working with the incentive spirometer. She ambulated in the hallway 3 times yesterday and once this morning. She has right and left mediastinal chest tubes in place. Right IJ Cordis in place. Lactated Ringer's at 20 ML's per hour. She is continued on bronchodilators. Heparin for DVT prophylaxis. White count 9.3. Hemoglobin 10.9. Platelets 191. Sodium 136. Potassium 3.9. Bicarb 20. BUN 15. Creatinine 0.77. Glucose 146. Currently in a -650 ML balance. On 05/11/2023, the patient is postoperative day #4. The patient is sitting up on a chair and she is, comfortable. Neurologically intact. She is currently on oxygen at 2 L/m nasal cannula. She has bilateral small pleural effusions. She also has some atelectatic changes in the left upper lobe. No evidence of pneumothorax. Chest tubes have been in place and the patient has a left pleural chest tube in place. Output from the left lower chest tube has been in the order of 150 mL over the past 8 hours and to 50 mL over the past 24 hours. She is tolerating diet. She has adequate bowel sounds. Cardiac rhythm is sinus. She is on a combination of aspirin and Plavix. She is also on metoprolol which is at a dose of 25 mg by mouth twice a day. The patient is on amiodarone for A. fib prophylaxis 4 mg twice a day. She is also on the mediastinal 6 units daily at bedtime and 6 units of NovoLog with meals. Her blood work from today shows edematous currently 0.4, hemoglobin is 10, BUN is 19 with a creatinine of 0.6 and a sodium level is at 138. Objective - Vital Signs Vital signs: Vital Signs Temp 98.2 F 05/11/23 04:00 Pulse 79 05/11/23 04:00 Resp 27 H 05/11/23 04:00 BP 119/80 05/11/23 04:00 Pulse Ox 93 L 05/11/23 04:00 FiO2 50 05/07/23 18:00 Intake & Output 05/10/23 05/11/23 05/11/23 18:59 06:59 18:59 Intake Total 1369 Output Total 120 400 Balance 1249 -400 Weight 92.7 kg Intake: IV 69 Lactated Ringers 1,000 ml 60 @ 20 mls/hr IV .Q24H [facility] Rx#:[id number] Pressure Bag (0.9 Sodium 9 Chloride) Oral 1300 Output: Chest Tube Drainage [address] 70 150 Urine 50 250 Other: Voiding Method Toilet Toilet # Voids 1 # Bowel Movements 1 ABP, PAP, CO, CI - Last Documented Arterial Blood Pressure 116/57 Pulmonary Artery Pressure 27/14 Cardiac Output 4.1 Cardiac Index 2.1 - Exam GENERAL EXAM: Awake, 62-year-old female, 2 L nasal cannula, up in a chair, in no apparent distress. HEAD: Normocephalic. EYES: Normal reaction of pupils, equal size. NOSE: Clear with pink turbinates. THROAT: No erythema or exudates. NECK: Right IJ Cordis in place. No masses, no JVD. CHEST: Sternal dressing dry and intact. Right and left pleural chest tubes in place. Epicardial wires in place. LUNGS: Equal air entry with no crackles, wheeze, rhonchi or dullness. CVS: S1 and S2 normal with no audible murmur, regular rhythm. ABDOMEN: No hepatosplenomegaly, normal bowel sounds, no guarding or rigidity. SPINE: No scoliosis or deformity SKIN: No rashes CENTRAL NERVOUS SYSTEM: No focal deficits, tone is normal in all 4 extremities. EXTREMITIES: SCDs to the lower extremities. No clubbing, no cyanosis. Peripheral pulses are intact. - Labs CBC & Chem 7: 05/11/23 03:29 05/11/23 03:29 Labs: Abnormal Lab Results - Last 24 Hours (Table) 05/10/23 05/10/23 05/10/23 Range/Units 11:37 16:24 20:24 RBC (3.80-5.40) m/uL Hgb (11.4-16.0) gm/dL Hct (34.0-46.0) % RDW (11.5-15.5) % Chloride (98-107) mmol/L Carbon Dioxide (22-30) mmol/L BUN (7-17) mg/dL Glucose (74-99) mg/dL POC Glucose (mg/dL) 126 H 220 H 175 H (70-110) mg/dL Calcium (8.4-10.2) mg/dL 05/11/23 05/11/23 05/11/23 Range/Units 03:29 03:29 06:53 RBC 3.41 L (3.80-5.40) m/uL Hgb 10.0 L (11.4-16.0) gm/dL Hct 30.7 L (34.0-46.0) % RDW 16.4 H (11.5-15.5) % Chloride 109 H (98-107) mmol/L Carbon Dioxide 21 L (22-30) mmol/L BUN 19 H (7-17) mg/dL Glucose 124 H (74-99) mg/dL POC Glucose (mg/dL) 137 H (70-110) mg/dL Calcium 8.1 L (8.4-10.2) mg/dL Assessment and Plan Plan: Multivessel coronary artery disease and the patient is status post Non-ST elevation myocardial infarction Severe multivessel coronary artery disease, status post off-pump coronary artery bypass grafting 3. Postoperative day # 4 Postthoracotomy, patient was extubated the patient is currently on 2 L of oxygen by nasal cannula. She has some atelectatic change in lung bases and small effusions. The patient is a left pleural chest tube in place output has been in the order of 2 50 mL over the past 24 hours. She is pulling approximately 800 on her incentive spirometer. Suspected COPD/asthma, stable Hyperlipidemia Hypertension Left internal carotid artery stenosis, estimated at 50-69%, based on carotid duplex ultrasound Diabetes mellitus type 2 block currently on Levemir insulin 20 units along with NovoLog 6 units with meals. Hypothyroidism Obesity with a BMI of 35.0kg/m Chronic ongoing tobacco dependence, currently smoking 1.5 packs per day Plan: Wean FiO2 as tolerated Again encouraged the increased use of the incentive spirometer Continue aspirin and Plavix Continue metoprolol 25 mg twice a day Continue Lipitor Ambulate the patient Increase her activity as tolerated Continue bronchodilators Heparin for DVT prophylaxis We will continue to follow
[2023-05-11] MEDS ORDERED: FUROSEMIDE 10 MG/ML 4 ML VIAL IV STA (08:44)
[2023-05-11] MEDS ORDERED: SENNOSIDES-DOCUSATE SODIUM 1 EACH TAB PO PRN (08:45)
[2023-05-11] MEDS ORDERED: ALBUMIN HUMAN 25% 50 ML in EMPTY BAG 1 BAG IVPB ONE (09:00)
--- NOTE | 2023-05-11 09:01 | P.PN ---
Subjective Progress Note Date: 05/11/23 The patient is a 62-year-old female who follows in the office with Dr. Lyle. She underwent coronary artery bypass 3 with DURBIN to LAD, radial artery to ramus intermedius and SVG to PDA as well as left atrial appendage ligation. Postoperative complications included hypotension and atrial fibrillation. Leroy osorio is currently in sinus rhythm and the patient is currently on midodrine. Patient was interviewed and examined resting comfortably in the recliner chair. She states she did not have any dizziness and lightheadedness during transfer. She has some mild discomfort along her sternal incision, but otherwise feels well. GENERAL: Well-appearing, well-nourished and in no acute distress. NECK: Supple without JVD or thyromegaly. LUNGS: Breath sounds clear to auscultation bilaterally. Respiration equal and unlabored. No wheezes, rales or rhonchi. Diminished in the bases. HEART: Regular rate and rhythm without murmurs, rubs or gallops. S1 and S2 heard. Sternal site has serosanguineous drainage. EXTREMITIES: Normal range of motion, no edema. No clubbing or cyanosis. Peripheral pulses intact and strong. TELEMETRY: Sinus rhythm overnight LABS: WBC 8.4, hemoglobin 10.0, hematocrit 30.7, platelet was 79, sodium 138, potassium 4.1, BUN 19, creatinine 0.67 IMPRESSION: Multivessel coronary artery disease Status post CABG 3 Postoperative hypotension, currently on midodrine Hyperlipidemia Carotid atherosclerosis Diabetes Current smoker COPD PLAN: Continue supportive treatment Aggressive pulmonary hygiene Patient may be transferred to [address] [place] [address] Further recommendations to be based on clinical course I am dictating on behalf of Dr Reid Tanner's history/physical and assessment/plan. Objective - Vital Signs Vital signs: Vital Signs Temp 98.2 F 05/11/23 04:00 Pulse 79 05/11/23 04:00 Resp 27 H 05/11/23 04:00 BP 119/80 05/11/23 04:00 Pulse Ox 93 L 05/11/23 04:00 FiO2 50 05/07/23 18:00 Intake & Output 05/10/23 05/11/23 05/11/23 18:59 06:59 18:59 Intake Total 1369 Output Total 120 400 Balance 1249 -400 Weight 92.7 kg Intake: IV 69 Lactated Ringers 1,000 ml 60 @ 20 mls/hr IV .Q24H [facility] Rx#:[id number] Pressure Bag (0.9 Sodium 9 Chloride) Oral 1300 Output: Chest Tube Drainage [address] 70 150 Urine 50 250 Other: Voiding Method Toilet Toilet # Voids 1 # Bowel Movements 1 ABP, PAP, CO, CI - Last Documented Arterial Blood Pressure 116/57 Pulmonary Artery Pressure 27/14 Cardiac Output 4.1 Cardiac Index 2.1 - Labs CBC & Chem 7: 05/11/23 03:29 05/11/23 03:29 Labs: Abnormal Lab Results - Last 24 Hours (Table) 05/10/23 05/10/23 05/10/23 Range/Units 11:37 16:24 20:24 RBC (3.80-5.40) m/uL Hgb (11.4-16.0) gm/dL Hct (34.0-46.0) % RDW (11.5-15.5) % Chloride (98-107) mmol/L Carbon Dioxide (22-30) mmol/L BUN (7-17) mg/dL Glucose (74-99) mg/dL POC Glucose (mg/dL) 126 H 220 H 175 H (70-110) mg/dL Calcium (8.4-10.2) mg/dL 05/11/23 05/11/23 05/11/23 Range/Units 03:29 03:29 06:53 RBC 3.41 L (3.80-5.40) m/uL Hgb 10.0 L (11.4-16.0) gm/dL Hct 30.7 L (34.0-46.0) % RDW 16.4 H (11.5-15.5) % Chloride 109 H (98-107) mmol/L Carbon Dioxide 21 L (22-30) mmol/L BUN 19 H (7-17) mg/dL Glucose 124 H (74-99) mg/dL POC Glucose (mg/dL) 137 H (70-110) mg/dL Calcium 8.1 L (8.4-10.2) mg/dL
[2023-05-11] MEDS: METOPROLOL TARTRATE 12.5 MG TAB PO SCH ×2 (09:09→20:26)
[2023-05-11] MEDS: ASPIRIN 325 MG TAB PO SCH (09:09)
[2023-05-11] MEDS: CLOPIDOGREL 75 MG TAB PO SCH (09:09)
[2023-05-11] MEDS: HEPARIN SODIUM,PORCINE 5,000 UNIT/ML 1 ML VIAL SQ SCH ×2 (09:10→16:46)
[2023-05-11] MEDS: AMIODARONE 200 MG TAB PO SCH ×2 (09:10→20:26)
[2023-05-11] MEDS: IPRATROPIUM-ALBUTEROL 3 ML NEB INHALATION SCH ×4 (09:11→20:26)
[2023-05-11] MEDS: ATORVASTATIN 40 MG TAB PO SCH (09:11)
[2023-05-11] MEDS: SYMBICORT 80-4.5 MCG INHALER INHALATION SCH ×2 (09:11→20:26)
--- NOTE | 2023-05-11 11:09 | P.PN ---
Subjective Progress Note Date: 05/11/23 Patient endorsed to [facility] at 8:44AM on 05/05. 62-year-old female with PMH of diabetes mellitus, hypertension, dyslipidemia, hypothyroidism presented to [facility] for chest pain that started Thursday night around 12:30AM. Chest pain described as pressure like, radiating to the bilateral jaws. Cardiac cath showed 90% stenosis of her proximal left anterior descending artery, 40-50% stenosis to her mid left anterior descending coronary, a small diagonal branch #1 with a 80-90% stenosis, a 30-40% stenosis to the mid segment of her right coronary artery and a 90% stenosis to the proximal PDA coronary artery. She was transferred to [facility] for NSTEMI and Cardiothoracic surgery evaluation for CABG. She reports smoking 1 pack of cigarettes daily since 17 years old. Currently workup done at [facility] includes: Vein mapping US. Carotid doppler shows 50-69% stenosis left ICA, < 50% right ICA. LANEY shows borderline abnormal right LANEY, normal left LANEY. 05/06 Patient was seen and examined. Plans for CABG tomorrow. Reports anxiety. No chest pain. Currently on heparin drip. EKG shows sinus rhythm with moderate ST depression. 05/07 Patient was seen and examined post op in the ICU. Underwent CABG 05/07. Intubated rate 18, TV 400, PEEP of 10, FiO2 50%. On Nitro drip 5 mcg/min. Amiodarone drip 1 mg/min. Insulin drip 3 units/hr. NS at 50 cc/hr. Clevidipine drip at 2 mg/hr. CBC shows Hg 10.3 Plt 127. INR 1.1. ABG pH 7.25, pCO2 51. CMP Cl 112, bicarb 21, glucose 139, Ca 7.1, ionized Ca 4.3, albumin 3.2. CXR shows post surgical changes. 05/08 Patient was seen and examined. Extubated successfully 05/07. Complains of some chest soreness and N/V. On clear liquid diet. Currently on NS at 30 cc/hr and Amiodarone drip at 0.5 mg/min. Nitro and Clevidipine drip discontinued. Pulmonology and CT surgery note reviewed. CBC shows WBC 12.7, Hg 10.4, Plt 148. CMP Cl 109, bicarb 21, glucose 120, Ca 7.6, T. Bili 1.5, AST 37, albumin 3.1. CXR shows right IJ, pulmonary vascular congestion, bilateral chest tube. 05/09 Patient was seen and examined. Reports some chest soreness but otherwise doing well. Amiodarone drip discontinued. Currently on insulin drip at 5.5 units/hr. I will stop the insulin drip and transition her to SQ insulin. Plans to discontinue Mckinney and mediastinal tube. Pulmonology and CT surgery note reviewed. CBC shows Hg 10.6. CMP Na 136, bicarb 19, glucose 132, Ca 8.2, T. Bili 2.1, AST 37, albumin 2.9. CXR shows pleural effusion, pulmonary vascular con gestion, bilateral chest tube. 05/10 Patient was seen and examined. She is on ASA, Lipitor and Plavix. She is on Amiodarone. She is on Levimir and Novolog for insulin coverage. Pulmonology and CT surgery note reviewed. CBC shows Hg 10.9. CMP Na 136, bicarb 20, glucose 146, Ca 8.2, T. Bili 1.4, albumin 2.8. Plans to discontinue the R chest tube today. Urinating freely. No bowel movement but passing gas. CXR reviewed, similar in appearance to yesterdays findings. 05/11 Patient was seen and examined. Left chest tube and epicardial pacer wire to be discontinued today. CBC Hg 10. BMP Cl 109, bicarb 21, BUN 19, glu 124, Ca 8.1. CXR shows left chest tube, no PTX, cardiomegaly with mild pulmonary va scular congestion with moderate bilateral pleural effusions. General: Sternal dressing c/d/i. Derm: warm, dry Head: atraumatic, normocephalic, symmetric Eyes: EOMI, no lid lag, anicteric sclera Mouth: no lip lesion, mucus membranes moist Cardiovascular: S1S2 reg, no murmur Lungs: Decreased BS bilateral, no rhonchi, no rales , no accessory muscle use Ext: no gross muscle atrophy, no edema, no contractures Neuro: No FND Psych: Alert and oriented Acute hypoxic respiratory failure NSTEMI status post CABG 05/07 Acute blood loss anemia Transaminitis Hypocalcemia Resolved: Hypomagnesemia Chronic conditions: hypertension, dyslipidemia, hypothyroidism Based on my assessment of this patient, this patient meets a high complexity level of care. Patient has an acute diagnosis of NSTEMI that poses a threat to life or bodily function. Acute hypoxic respiratory failure: Wean O2. NSTEMI: Status post CABG 05/07. ASA 325 mg PO QD. Lipitor 40 mg PO QD. Plavix 75 mg PO QD. Metoprolol 25 mg PO BID. Telemetry monitoring. Cardiology and CT surgery on board. Diabetes mellitus: POC glucose 126-220. Levimir 20 units QHS. Novolog 6 units TID. Accuchecks ACHS. Acute blood loss anemia: Expected result of surgery. Daily CBC. Transfuse if Hg < 7. Transaminitis: Mild elevation. Likley hepatic steotosis. Nonobstructive. Hepatitis panel negative. Hypocalcemia: Pseudo when corrected for albumin. I have reviewed the following education consultant notes: Cardiothoracic surgery, Pulm note. I have reviewed the results of the following tests: CBC, BMP. I have ordered the following tests: I have discussed the care of this patient with the following independent historian: Discussed with RN. I have independently interpreted the following test below: CXR as above. I have discussed the management of this patient with the following physician: Objective - Vital Signs Vital signs: Vital Signs Temp 98.2 F 05/11/23 04:00 Pulse 79 05/11/23 04:00 Resp 27 H 05/11/23 04:00 BP 119/80 05/11/23 04:00 Pulse Ox 93 L 05/11/23 04:00 FiO2 50 05/07/23 18:00 Intake & Output 05/10/23 05/11/23 05/11/23 18:59 06:59 18:59 Intake Total 1369 Output Total 120 400 Balance 1249 -400 Weight 92.7 kg Intake: IV 69 Lactated Ringers 1,000 ml 60 @ 20 mls/hr IV .Q24H [facility] Rx#:[id number] Pressure Bag (0.9 Sodium 9 Chloride) Oral 1300 Output: Chest Tube Drainage [address] 70 150 Urine 50 250 Other: Voiding Method Toilet Toilet # Voids 1 # Bowel Movements 1 ABP, PAP, CO, CI - Last Documented Arterial Blood Pressure 116/57 Pulmonary Artery Pressure 27/14 Cardiac Output 4.1 Cardiac Index 2.1 - Labs CBC & Chem 7: 05/11/23 03:29 05/11/23 03:29 Labs: Abnormal Lab Results - Last 24 Hours (Table) 05/10/23 05/10/23 05/10/23 Range/Units 11:37 16:24 20:24 RBC (3.80-5.40) m/uL Hgb (11.4-16.0) gm/dL Hct (34.0-46.0) % RDW (11.5-15.5) % Chloride (98-107) mmol/L Carbon Dioxide (22-30) mmol/L BUN (7-17) mg/dL Glucose (74-99) mg/dL POC Glucose (mg/dL) 126 H 220 H 175 H (70-110) mg/dL Calcium (8.4-10.2) mg/dL 05/11/23 05/11/23 05/11/23 Range/Units 03:29 03:29 06:53 RBC 3.41 L (3.80-5.40) m/uL Hgb 10.0 L (11.4-16.0) gm/dL Hct 30.7 L (34.0-46.0) % RDW 16.4 H (11.5-15.5) % Chloride 109 H (98-107) mmol/L Carbon Dioxide 21 L (22-30) mmol/L BUN 19 H (7-17) mg/dL Glucose 124 H (74-99) mg/dL POC Glucose (mg/dL) 137 H (70-110) mg/dL Calcium 8.1 L (8.4-10.2) mg/dL
[2023-05-11 11:14] LABS: Glucose,Whole Blood 143 mg/dL (70-110)
[2023-05-11 12:04] LABS: Glucose,Whole Blood 194 mg/dL (70-110)
[2023-05-11] MEDS: amLODIPine 2.5 MG TAB PO SCH (12:26)
--- NOTE | 2023-05-11 14:48 | CDI ---
Documentation Clarification Form Date: From: Malissa Oliveros Phone: [phone] Admit Date: 05/04/2023 04:25:00 PM Patient Name: Angela Bender Visit Number: [id number] Discharge Date: ATTENTION: The Clinical Documentation Specialists (CDI) and [facility] Coding Staff appreciate your assistance in clarifying documentation. Please respond to the clarification below the line at the bottom and electronically sign. The CDI & [facility] Coding staff will review the response and follow-up if needed. Please note: Queries are made part of the Legal Health Record. If you have any questions, please contact the author of this message via ITS. Dr. Dk Daniel "Postoperative hypotension" is documented in the progress note on 05/11 and patient had Coronary artery bypass graft on 05/07. Additional clarification is requested regarding the relationship, if any, that exists between the diagnosis and the procedure. Post-Operative Diagnosis: 3v CAD with NSTEMI Procedure performed: Off pump coronary artery bypass grafting x 3 on 05/07 History/Risk Factors: "62-year-old female with PMH of diabetes mellitus, hypertension, dyslipidemia, hypothyroidism presented to [facility] for chest pain that started Thursday night around 12:30AM." - Per H&P on 05/05 Clinical Indicators: "Remains in sinus rhythm, hemodynamically stable on no inotropes or pressors. She was started on midodrine to keep her BP up enough to be able to give her beta daniel." - Per Progress Note on 05/10 BP/MAP: 05/08 05:15 - 117/75 05/09 08:30 - 78/62 MAP 68 05/09 12:00 - 97/59 MAP 72 05/09 15:00 - 92/56 MAP 71 05/09 18:00 - 110/61 MAP 75 05/10 00:00 - 97/61 MAP 75 Treatment: Per MAR: Midodrine started 05/10 10mg PO TID What relationship, if any, exists between the diagnosis of [insert dx] and the procedure: [ ] Hypotension is a complication of surgical procedure [ ] Hypotension is an expected outcome of the surgical procedure [ ] Hypotension is related to patients co-morbid condition(s) of acute blood loss & not a complication of the procedure [ ] Hypotension has been ruled out [ ] Other please specify ____ [ ] Unable to determine MTDD
[2023-05-11 16:15] LABS: Glucose,Whole Blood 121 mg/dL (70-110)
[2023-05-11] MEDS: ACETAMINOPHEN TAB 325 MG TAB PO PRN (20:25)
[2023-05-11] MEDS: MONTELUKAST 10 MG TAB PO SCH (20:26)
[2023-05-11 20:38] LABS: Glucose,Whole Blood 188 mg/dL (70-110)
[2023-05-11] MEDS: INSULIN DETEMIR (LEVEMIR) 100 UNIT/ML SYR SQ SCH (20:53)
[2023-05-12] MEDS: KETOROLAC 15 MG/ML 1 ML VIAL IVP SCH ×3 (01:01→06:37)
[2023-05-12] MEDS: HEPARIN SODIUM,PORCINE 5,000 UNIT/ML 1 ML VIAL SQ SCH ×2 (01:01→08:05)
[2023-05-12 05:17] LABS: Glucose,Whole Blood 127 mg/dL (70-110)
[2023-05-12] MEDS: INSULIN ASPART (NovoLOG) 100 UNIT/ML VIAL SQ SCH ×4 (05:51→12:16)
[2023-05-12] MEDS: ACETAMINOPHEN TAB 325 MG TAB PO PRN (06:34)
[2023-05-12] MEDS: MIDODRINE 5 MG TAB PO SCH (06:35)
[2023-05-12] MEDS: LEVOTHYROXINE 50 MCG TAB PO SCH (06:35)
[2023-05-12] MEDS: PANTOPRAZOLE 40 MG TABLET PO SCH (06:35)
--- NOTE | 2023-05-12 06:42 | XR ---
EXAMINATION TYPE: XR chest 2V DATE OF EXAM: 05/12/2023 6:22 AM COMPARISON: Chest radiographs from 05/11/2023 TECHNIQUE: XR chest 2V Frontal and lateral views of the chest. CLINICAL INDICATION:Female, 62 years old with history of post cardiac surgery; FINDINGS: Lungs/Pleura: Small to moderate bilateral pleural effusions redemonstrated. Left mid upper lung linea r atelectasis. No sizable pneumothorax. Pulmonary vascularity: Mild pulmonary vascular congestion. Heart/mediastinum: Cardiomediastinal silhouette is enlarged and stable. Atherosclerotic calcificatio ns are seen in the aorta. Left atrial appendage occlusion device is present. Post CABG changes. Musculoskeletal: No acute osseous pathology. Midline sternotomy wires are noted and stable. Other findings: None Lines/Tubes: Removal of left chest tube. IMPRESSION: 1. Removal left chest tube. No sizable pneumothorax. 2. Cardiomegaly with mild pulmonary congestion and similar small to moderate bilateral pleural effus ions.
[2023-05-12] MEDS ORDERED: IBUPROFEN 400 MG TAB PO PRN (07:06)
[2023-05-12] MEDS: AMIODARONE 200 MG TAB PO SCH (08:03)
[2023-05-12] MEDS: METOPROLOL TARTRATE 12.5 MG TAB PO SCH (08:03)
[2023-05-12] MEDS: ASPIRIN 325 MG TAB PO SCH (08:03)
[2023-05-12] MEDS: ATORVASTATIN 40 MG TAB PO SCH (08:05)
[2023-05-12] MEDS: CLOPIDOGREL 75 MG TAB PO SCH (08:05)
[2023-05-12] MEDS: IPRATROPIUM-ALBUTEROL 3 ML NEB INHALATION SCH ×2 (08:23→12:04)
[2023-05-12] MEDS: SYMBICORT 80-4.5 MCG INHALER INHALATION SCH (08:24)
--- NOTE | 2023-05-12 08:46 | P.PN ---
Subjective Progress Note Date: 05/12/23 Principal diagnosis: Coronary artery disease, NSTEMI this admission, new onset atrial fibrillation. History of hypertension, hyperlipidemia, left internal carotid artery stenosis, type 2 diabetes mellitus, hypothyroid, chronic ongoing tobacco dependence, severe COPD, asthma, chronic back pain, obesity, and family history of premature coronary artery disease. POD #5 off-pump coronary artery bypass graft 3 with left internal thoracic artery in situ to the left anterior descending coronary artery, radial artery from the aorta to the ramus intermedius artery, reverse saphenous vein graft from the aorta to the posterior descending coronary artery, endoscopic left radial and left greater saphenous vein harvest, left atrial appendage ligation using a 35 mm AtriClip, intraoperative graft flow measurements using the [employer] flowmeter system, intraoperative transesophageal echocardiogram performed by anesthesia Postoperative acute blood loss anemia and thrombocytopenia, expected given hemodilution The patient was seen and examined this morning sitting up in a recliner on the cardiac stepdown unit in no acute distress. Remains in sinus rhythm, hemodynamically stable, no true hypotension as her mean arterial pressures have been greater than 60 all along, midodrine had only been started so SBP would be high enough to allow administration of beta daniel, midodrine has since been discontinued. States pain is controlled on current medication regimen, mostly hurts when she coughs, denies shortness of breath. Remains on 2 L nasal cannula with oxygen saturation in the low to mid 90s, on room air oxygen saturation is 86% at rest, able to achieve 1000 mL on incentive spirometry. CXR reviewed, labs pending. Patient has ambulated in the hallway without difficulty. Home oxygen test to be completed today, anticipate oxygen requirements for a short term at discharge related to COPD. Anticipate discharge to home this afternoon. No other new concerns. Objective - Vital Signs Vital signs: Vital Signs Temp 97.7 F 05/12/23 04:00 Pulse 83 05/12/23 08:24 Resp 20 05/12/23 04:00 BP 143/67 05/12/23 04:00 Pulse Ox 94 L 05/12/23 08:24 FiO2 50 05/07/23 18:00 Intake & Output 05/11/23 05/12/23 05/12/23 18:59 06:59 18:59 Intake Total 400 Output Total 2975 200 Balance -2575 -200 Weight 90.3 kg Intake: Oral 400 Output: Urine 2975 200 Other: Voiding Method Toilet Toilet # Voids 2 ABP, PAP, CO, CI - Last Documented Arterial Blood Pressure 116/57 Pulmonary Artery Pressure 27/14 Cardiac Output 4.1 Cardiac Index 2.1 - Exam CONSTITUTIONAL: Appears comfortable, cooperative, no acute distress RESPIRATORY: Lungs sounds diminished bilaterally. Respirations even, nonlabored. Currently on 2 L nasal cannula with oxygen saturation 92%. Able to achieve 1000 mL on incentive spirometry. Strong cough. CARDIOVASCULAR: S1, S2 present. Regular rate and rhythm, sinus rhythm on telemetry. Sternum stable. Palpable peripheral pulses bilaterally. No edema present. No calf pain or tenderness noted. Heart hugger in place with patient demonstrating appropriate use. Antiembolism stockings, SCDs present. GASTROINTESTINAL: Abdomen soft, nontender, nondistended. Active bowel sounds present 4 quadrants. Tolerating diet. Positive bowel movement 05/10 GENITOURINARY: Continues to void clear yellow urine, 3175 mL in last 24 hours INTEGUMENTARY: Skin is warm and dry with evidence of good perfusion. Anterior chest incision well approximated. Left lower extremity EVH as well as left radial artery harvest site well approximated without redness or drainage. NEUROLOGIC: Cranial nerves II through XII intact MUSKULOSKELETAL: Able to move all extremities, strength equal bilaterally PSYCHIATRIC: Alert and oriented to person place and time, appropriate affect, intact judgment and insight - Allied health notes Allied health notes reviewed: nursing - Labs CBC & Chem 7: 05/11/23 03:29 05/11/23 03:29 Labs: Abnormal Lab Results - Last 24 Hours (Table) 05/11/23 05/11/23 05/11/23 Range/Units 11:12 12:03 16:13 POC Glucose (mg/dL) 143 H 194 H 121 H (70-110) mg/dL 05/11/23 05/12/23 Range/Units 20:36 05:10 POC Glucose (mg/dL) 188 H 127 H (70-110) mg/dL - Imaging and Cardiology Chest x-ray: report reviewed, image reviewed Assessment and Plan Assessment: Coronary artery disease, NSTEMI this admission, status post off-pump present three-vessel CABG New onset atrial fibrillation, currently sinus, status post left atrial appendage ligation History of hypertension, no real hypotension as MAP has remained >60 Hyperlipidemia, treated, cholesterol 126, LDL 44, triglycerides 218 Left internal carotid artery stenosis, 50-69% Type 2 diabetes mellitus, preoperative hemoglobin A1c 7.3% Hypothyroid Chronic ongoing tobacco dependence Severe COPD, preoperative FEV1 38% of predicted Asthma Chronic back pain Obesity Family history of premature coronary artery disease Postoperative acute blood loss anemia and thrombocytopenia, expected Plan: Continue to maximize medical therapy with aspirin, statin, Plavix, beta daniel. Will increase beta daniel therapy as tolerated. Midodrine discontinued Continue amiodarone for A. fib prophylaxis, will taper weekly Continue low-dose calcium channel daniel for radial artery spasm prophylaxis with hold parameters Wean O2 as tolerated. Encourage incentive spirometry use to times every hour while awake, bronchodilators per pulmonology Nursing to perform and document home oxygen evaluation, anticipated short term need for home oxygen related to COPD Increase activity, ambulate as tolerated. PT/OT/cardiac rehab consulted Will monitor daily labs and x-rays. Electrolyte replacement per protocol, decision regarding lasix dependant on pending labs GI/DVT prophylaxis Pain control with current medication regimen Insulin management per internal medicine. Patient is diabetic with preoperative hemoglobin A1c 7.3%. Needs tight blood sugar control Continue to record strict accurate intake and output Daily weights Patient to shower daily Discharge planning in progress, anticipated discharge to home with home care this afternoon More recommendations to follow
[2023-05-12 09:27] LABS: HCT 33.2 % (34.0-46.0); HGB 10.9 gm/dL (11.4-16.0); Hypochromasia Slight; MCH 29.5 pg (25.0-35.0); MCHC 32.8 g/dL (31.0-37.0); Mean Platelet Volume 8.6; Platelet Count 201 k/uL (150-450); RBC 3.68 m/uL (3.80-5.40); RDW 15.9 % (11.5-15.5); WBC 9.7 k/uL (3.8-10.6)
[2023-05-12 09:43] LABS: African American GFR (CKD) >90 (>60 ml/min/1.73 sqM); Anion Gap 10 mmol/L; Blood Urea Nitrogen 15 mg/dL (7-17); Calcium 8.4 mg/dL (8.4-10.2); Carbon Dioxide 23 mmol/L (22-30); Chloride 106 mmol/L (98-107); Glucose 129 mg/dL (74-99); Magnesium 1.8 mg/dL (1.6-2.3); Non-African American GFR(CKD) >90 (>60 ml/min/1.73 sqM); Potassium 3.8 mmol/L (3.5-5.1); Sodium 139 mmol/L (137-145)
[2023-05-12 09:44] VITALS: TEMP 98
[2023-05-12] MEDS ORDERED: FUROSEMIDE 10 MG/ML 2 ML VIAL IV ONE (10:30)
--- NOTE | 2023-05-12 10:48 | P.PN ---
Subjective Progress Note Date: 05/12/23 I am seeing this patient in consultation today 05/06/2023 on the cardiac stepdown unit for preoperative pulmonary clearance in preparation for open heart surgery to be done on May 07. Patient is a 62-year-old white female with past medical history significant for hypertension, hyperlipidemia, diabetes mellitus type 2, asthma, obesity, hypothyroidism. Patient does have a significant familial history of premature coronary artery disease and CO. She does follow with a nurse practitioner out of Dr. Holden Fitzgerald's office. Patient was awakened in the middle the night with severe substernal chest pain starting on 05/04/2023. She presented originally to [facility] and was diagnosed with a non-ST elevation CO. She was also in atrial fibrillation with RVR at that time. She did undergo heart catheterization at outside facility and was found to have severe multivessel coronary artery disease. Patient was then transferred to [facility] for surgical revascularization, which is scheduled this May 07. We were consulted for preoperative pulmonary clearance and postoperative ventilator management during her recovery. A bedside spirometry showed a FEV1 of 0.92 liters or 38%. Based on this, she is at a moderate increased intraoperative risk. Patient states that she takes as needed albuterol and was recently prescribed Breztri by her PCP, but has not started it. She actually denies any history of asthma or COPD. She does report severe seasonal ALLERGIES and is ALLERGIC to pet dander among other things. She also reports a significant smoking history of 1.5 pack per day since she was a teenager. Chest x-ray outside facility reportedly showed no acute cardiopulmonary disease process. Patient is currently sitting up in bed, on 2 L/m nasal cannula, in no acute distress. SpO2 reading 95%. She is currently on IV heparin per protocol and normal saline is infusing at 75 mL per hour. She denies any further chest pain. She denies any pulmonary complaints. Most recent BMP shows sodium 140, potassium 3.8, chloride 110, serum bicarb 24, BUN 8, creatinine 0.65, glucose 120. LFTs mildly elevated. APTT subtherapeutic at 33.8. Patient is currently being monitored on the cardiac stepdown unit and is undergoing an extensive preoperative work up. The patient is seen today 05/07/2023 in follow-up in the intensive care unit. She had recently returned from surgery. She had undergone an off-pump coronary artery bypass grafting 3 utilizing a DURBIN to the LAD, right artery from aorta to ramus intermedius and a saphenous vein graft from the aorta to posterior descending coronary artery. Left atrial ligation using an Atriclip. She is currently sedated on the mechanical ventilator and assist control mode at a rate of 14, tidal volume 400, FiO2 100% and a PEEP of 10. Blood gases revealed a pO2 of 181, pCO2 of 51 and a pH is 7.25. Her respiratory rate was increased to 18. Cardiac output 4.6. Cardiac index 2.4. She is receiving lactated Ringer's at 50 MLS per hour. Sedated with propofol at 20 mcg/kg/m. On a nitroglycerin drip at 5 mg/m. Insulin drip at 1.5 units per hour. Mediastinal and right and left pleural chest tubes are in place. Chest x-ray reviewed. Blood sugar 138. Other labs are pending. The patient is seen today 05/08/2023 in follow-up in the intensive care unit. Postoperative day #1. She is currently awake and alert in no acute distress. Sitting up in a chair at the bedside. She is maintaining good O2 saturations in the 90s on 4 L/m per nasal cannula. She is requiring insulin drip at 6 units per hour. She is on amiodarone at 0.5 mg/m. She has lactated Ringer's at 50 MLS per hour. Cardiac output 4.1. Cardiac index 2.1. Mediastinal and left and right chest tubes remain in place. Right radial arterial line in place. Cascilla- Iftikhar catheter to the right IJ in place. Epicardial pacer wires in place. Backup pacing at 50. Chest x-ray continues to show some pulmonary vascular ekta estion with a [id number] left pleural effusion and adjacent atelectasis. No pneumothorax. White count 12.7. Hemoglobin 10.4. Platelets 148. Sodium 138. Potassium 4.2. Bicarb 21. BUN 10. Creatinine 0.65. Glucose 120. AST 37. ALT 18. Albumin 3.1. Ionized calcium 4.6. Magnesium 2.1. She remains on bronchodilators. Working well with the incentive spirometer. Heparin for DVT prophylaxis. She is currently in a -2.1 L balance. The patient is seen today 05/09/2023 in follow-up in the intensive care unit. Postoperative day #2. She is currently sitting up in a chair. Awake and alert in no acute distress. Denies any worsening shortness, cough or congestion. Chest x-ray is showing some significant atelectasis in the left lower lobe. She is working with the incentive spirometer. She has been up ambulating in the hallway. She is requiring insulin at 5.5 units per hour. Lactated Ringer's at 20 ML's per hour. Mediastinal, right and left chest tubes remain in place. Right IJ cordis remains in place. Indwelling Mckinney catheter remains in place. She is maintaining good O2 saturations in the 90s on 2 L/m per nasal cannula. Continued on DuoNeb inhalations, Symbicort and Singulair. Heparin for DVT prophylaxis. She is currently in a -1.1 L balance. The patient is seen today 05/10/2023 in follow-up in the intensive care unit. Postoperative day #3. She is awake and alert in no acute distress. She is currently sitting up in a chair at the bedside. Denies any worsening shortness of breath, cough or congestion. Chest x-ray showing similar findings of ate lectasis in the left lower lobe. She is working with the incentive spirometer. She ambulated in the hallway 3 times yesterday and once this morning. She has right and left mediastinal chest tubes in place. Right IJ Cordis in place. Lactated Ringer's at 20 ML's per hour. She is continued on bronchodilators. Heparin for DVT prophylaxis. White count 9.3. Hemoglobin 10.9. Platelets 191. Sodium 136. Potassium 3.9. Bicarb 20. BUN 15. Creatinine 0.77. Glucose 146. Currently in a -650 ML balance. On 05/11/2023, the patient is postoperative day #4. The patient is sitting up on a chair and she is, comfortable. Neurologically intact. She is currently on oxygen at 2 L/m nasal cannula. She has bilateral small pleural effusions. She also has some atelectatic changes in the left upper lobe. No evidence of pneumothorax. Chest tubes have been in place and the patient has a left pleural chest tube in place. Output from the left lower chest tube has been in the order of 150 mL over the past 8 hours and to 50 mL over the past 24 hours. She is tolerating diet. She has adequate bowel sounds. Cardiac rhythm is sinus. She is on a combination of aspirin and Plavix. She is also on metoprolol which is at a dose of 25 mg by mouth twice a day. The patient is on amiodarone for A. fib prophylaxis 4 mg twice a day. She is also on the mediastinal 6 units daily at bedtime and 6 units of NovoLog with meals. Her blood work from today shows edematous currently 0.4, hemoglobin is 10, BUN is 19 with a creatinine of 0.6 and a sodium level is at 138. 05/12/2023, the patient is postop day #5. Chest is able to move. She remains on 2 L of oxygen by nasal cannula. Chest exit from today shows small bilateral pleural effusions pH is using the incentive spirometer. She has no specific complaints. The patient is pulling approximately 1000 on the incentive spirometer. She wants to go home. No issues with blood pressure. No focal neurological deficits. The white cell count is at 8.4 with a hemoglobin of 10 and a platelet count of 179. Sodium levels of 138. No other significant events otherwise over the past 24 hours. No chest pain. No shortness of breath. Objective - Vital Signs Vital signs: Vital Signs Temp 97.7 F 05/12/23 04:00 Pulse 83 05/12/23 08:41 Resp 20 05/12/23 04:00 BP 143/67 05/12/23 04:00 Pulse Ox 94 L 05/12/23 08:24 FiO2 50 05/07/23 18:00 Intake & Output 05/11/23 05/12/23 05/12/23 18:59 06:59 18:59 Intake Total 400 100 Output Total 2975 200 Balance -2575 -200 100 Weight 90.3 kg Intake: Oral 400 100 Output: Urine 2975 200 Other: Voiding Method Toilet Toilet # Voids 2 ABP, PAP, CO, CI - Last Documented Arterial Blood Pressure 116/57 Pulmonary Artery Pressure 27/14 Cardiac Output 4.1 Cardiac Index 2.1 - Exam GENERAL EXAM: Awake, 62-year-old female, 2 L nasal cannula, up in a chair, in no apparent distress. HEAD: Normocephalic. EYES: Normal reaction of pupils, equal size. NOSE: Clear with pink turbinates. THROAT: No erythema or exudates. NECK: Right IJ Cordis in place. No masses, no JVD. CHEST: Sternal dressing dry and intact. Right and left pleural chest tubes in place. Epicardial wires in place. LUNGS: Equal air entry with no crackles, wheeze, rhonchi or dullness. CVS: S1 and S2 normal with no audible murmur, regular rhythm. ABDOMEN: No hepatosplenomegaly, normal bowel sounds, no guarding or rigidity. SPINE: No scoliosis or deformity SKIN: No rashes CENTRAL NERVOUS SYSTEM: No focal deficits, tone is normal in all 4 extremities. EXTREMITIES: SCDs to the lower extremities. No clubbing, no cyanosis. Peripheral pulses are intact. - Labs CBC & Chem 7: 05/12/23 09:11 05/12/23 09:11 Labs: Abnormal Lab Results - Last 24 Hours (Table) 05/11/23 05/11/23 05/11/23 Range/Units 11:12 12:03 16:13 POC Glucose (mg/dL) 143 H 194 H 121 H (70-110) mg/dL 05/11/23 05/12/23 Range/Units 20:36 05:10 POC Glucose (mg/dL) 188 H 127 H (70-110) mg/dL Assessment and Plan Plan: Multivessel coronary artery disease and the patient is status post Non-ST elevation myocardial infarction Severe multivessel coronary artery disease, status post off-pump coronary artery bypass grafting 3. Postoperative day # 5 Postthoracotomy, patient was extubated the patient is currently on 2 L of oxygen by nasal cannula. She has some atelectatic change in lung bases and small effusions. Left-sided chest tube was removed Suspected COPD/asthma, stable Hyperlipidemia Hypertension Left internal carotid artery stenosis, estimated at 50-69%, based on carotid duplex ultrasound Diabetes mellitus type 2 block currently on Levemir insulin 20 units along with NovoLog 6 units with meals. Hypothyroidism Obesity with a BMI of 35.0kg/m Chronic ongoing tobacco dependence, currently smoking 1.5 packs per day Plan: Wean FiO2 as tolerated, still on 2 L of oxygen by nasal cannula. May need home O2 midodrine has been discontinued Again encouraged the increased use of the incentive spirometer Continue aspirin and Plavix Continue metoprolol 25 mg twice a day Continue Lipitor Ambulate the patient Increase her activity as tolerated Continue bronchodilators Heparin for DVT prophylaxis We will continue to follow Possible discharge within the next 24-48 hours. Doing home O2 evaluation.
[2023-05-12] MEDS ORDERED: POTASSIUM BICARBONATE/CIT AC 20 MEQ TABLET.EFF PO ONE (11:00)
[2023-05-12 11:12] LABS: Glucose,Whole Blood 136 mg/dL (70-110)
[2023-05-12] MEDS: amLODIPine 2.5 MG TAB PO SCH (11:20)
[2023-05-12] MEDS: MAGNESIUM SULFATE-D5W PMX 1 GM in DEXTROSE/WATER 1 100ML.BAG IVPB SCH ×2 (11:20→12:16)
--- NOTE | 2023-05-12 11:44 | P.PN ---
Subjective HISTORY OF PRESENT ILLNESS: Patient is status post CABG 3 vessels. Postoperative day #5. Patient examined this morning at the bedside. Patient currently denies chest pain or pressure. Patient reports mild shortness of breath with exertion. Telemetry reveals sinus mechanism. Blood pressure elevated this morning with a systolic in the 170s. Patient was previously on Midodrine which was discontinued this morning per CT surgery. PHYSICAL EXAM: VITAL SIGNS: Reviewed. GENERAL: Well-developed in no acute distress. NECK: Supple. No JVD or thyromegaly LUNGS: Respirations even and unlabored. Lungs essentially clear to auscultation bilaterally. HEART: Regular rate and rhythm. S1 and S2 heard. EXTREMITIES: Normal range of motion. No clubbing or cyanosis. Peripheral pulses intact. No lower extremity edema ASSESSMENT: Non-STEMI Coronary artery disease, status post three-vessel CABG Hypertension Hyperlipidemia New-onset paroxysmal atrial fibrillation, currently maintaining sinus mechanism Nicotine dependence Hypothyroidism COPD PLAN: Continue postoperative management per CT surgery Increase activity as tolerated Encourage use of incentive spirometer Continue to monitor blood pressure. Midodrine which was discontinued this morning per CT surgery. Patient is currently stable for discharge from a cardiac standpoint Further recommendations pending patient course Nurse practitioner note has been reviewed by physician. Signing provider agrees with the documented findings, assessment, and plan of care. Objective - Vital Signs Vital signs: Vital Signs Temp 98 F 05/12/23 08:00 Pulse 83 05/12/23 08:41 Resp 19 05/12/23 08:00 BP 171/83 05/12/23 08:00 Pulse Ox 94 L 05/12/23 08:24 FiO2 50 05/07/23 18:00 Intake & Output 05/11/23 05/12/23 05/12/23 18:59 06:59 18:59 Intake Total 400 100 Output Total 2975 200 250 Balance -2575 -200 -150 Weight 90.3 kg Intake: Oral 400 100 Output: Urine 2975 200 250 Other: Voiding Method Toilet Toilet Toilet # Voids 2 ABP, PAP, CO, CI - Last Documented Arterial Blood Pressure 116/57 Pulmonary Artery Pressure Cardiac Output 4.1 Cardiac Index 2.1 - Labs CBC & Chem 7: 05/12/23 09:11 05/12/23 09:11 Labs: Abnormal Lab Results - Last 24 Hours (Table) 05/11/23 05/11/23 05/11/23 Range/Units 12:03 16:13 20:36 RBC (3.80-5.40) m/uL Hgb (11.4-16.0) gm/dL Hct (34.0-46.0) % RDW (11.5-15.5) % Glucose (74-99) mg/dL POC Glucose (mg/dL) 194 H 121 H 188 H (70-110) mg/dL 05/12/23 05/12/23 05/12/23 Range/Units 05:10 09:11 09:11 RBC 3.68 L (3.80-5.40) m/uL Hgb 10.9 L (11.4-16.0) gm/dL Hct 33.2 L (34.0-46.0) % RDW 15.9 H (11.5-15.5) % Glucose 129 H (74-99) mg/dL POC Glucose (mg/dL) 127 H (70-110) mg/dL 05/12/23 Range/Units 11:10 RBC (3.80-5.40) m/uL Hgb (11.4-16.0) gm/dL Hct (34.0-46.0) % RDW (11.5-15.5) % Glucose (74-99) mg/dL POC Glucose (mg/dL) 136 H (70-110) mg/dL
--- NOTE | 2023-05-12 12:32 | P.PN ---
Subjective Progress Note Date: 05/12/23 Patient endorsed to [facility] at 8:44AM on 05/05. 62-year-old female with PMH of diabetes mellitus, hypertension, dyslipidemia, hypothyroidism presented to [facility] for chest pain that started Thursday night around 12:30AM. Chest pain described as pressure like, radiating to the bilateral jaws. Cardiac cath showed 90% stenosis of her proximal left anterior descending artery, 40-50% stenosis to her mid left anterior descending coronary, a small diagonal branch #1 with a 80-90% stenosis, a 30-40% stenosis to the mid segment of her right coronary artery and a 90% stenosis to the proximal PDA coronary artery. She was transferred to [facility] for NSTEMI and Cardiothoracic surgery evaluation for CABG. She reports smoking 1 pack of cigarettes daily since 17 years old. Currently workup done at [facility] includes: Vein mapping US. Carotid doppler shows 50-69% stenosis left ICA, < 50% right ICA. LANEY shows borderline abnormal right LANEY, normal left LANEY. 05/06 Patient was seen and examined. Plans for CABG tomorrow. Reports anxiety. No chest pain. Currently on heparin drip. EKG shows sinus rhythm with moderate ST depression. 05/07 Patient was seen and examined post op in the ICU. Underwent CABG 05/07. Intubated rate 18, TV 400, PEEP of 10, FiO2 50%. On Nitro drip 5 mcg/min. Amiodarone drip 1 mg/min. Insulin drip 3 units/hr. NS at 50 cc/hr. Clevidipine drip at 2 mg/hr. CBC shows Hg 10.3 Plt 127. INR 1.1. ABG pH 7.25, pCO2 51. CMP Cl 112, bicarb 21, glucose 139, Ca 7.1, ionized Ca 4.3, albumin 3.2. CXR shows post surgical changes. 05/08 Patient was seen and examined. Extubated successfully 05/07. Complains of some chest soreness and N/V. On clear liquid diet. Currently on NS at 30 cc/hr and Amiodarone drip at 0.5 mg/min. Nitro and Clevidipine drip discontinued. Pulmonology and CT surgery note reviewed. CBC shows WBC 12.7, Hg 10.4, Plt 148. CMP Cl 109, bicarb 21, glucose 120, Ca 7.6, T. Bili 1.5, AST 37, albumin 3.1. CXR shows right IJ, pulmonary vascular congestion, bilateral chest tube. 05/09 Patient was seen and examined. Reports some chest soreness but otherwise doing well. Amiodarone drip discontinued. Currently on insulin drip at 5.5 units/hr. I will stop the insulin drip and transition her to SQ insulin. Plans to discontinue Mckinney and mediastinal tube. Pulmonology and CT surgery note reviewed. CBC shows Hg 10.6. CMP Na 136, bicarb 19, glucose 132, Ca 8.2, T. Bili 2.1, AST 37, albumin 2.9. CXR shows pleural effusion, pulmonary vascular con gestion, bilateral chest tube. 05/10 Patient was seen and examined. She is on ASA, Lipitor and Plavix. She is on Amiodarone. She is on Levimir and Novolog for insulin coverage. Pulmonology and CT surgery note reviewed. CBC shows Hg 10.9. CMP Na 136, bicarb 20, glucose 146, Ca 8.2, T. Bili 1.4, albumin 2.8. Plans to discontinue the R chest tube today. Urinating freely. No bowel movement but passing gas. CXR reviewed, similar in appearance to yesterdays findings. 05/11 Patient was seen and examined. Left chest tube and epicardial pacer wire to be discontinued today. CBC Hg 10. BMP Cl 109, bicarb 21, BUN 19, glu 124, Ca 8.1. CXR shows left chest tube, no PTX, cardiomegaly with mild pulmonary va scular congestion with moderate bilateral pleural effusions. 05/12 Patient was seen and examined. No complaints today. Plans for discharge hold today. She will need home O2 on discharge. Got Lasix 40 mg IV x 1 today. No need for insulin on discharge given A1c of 7.3 and the fact that she is on 3 ora l agents at home. CXR shows mild pulmonary congestion and small bilateral pleural effusions. CBC Hg 10/9. BMP glu 129. Mag 1.8. General: no distress Derm: warm, dry Head: atraumatic, normocephalic, symmetric Eyes: EOMI, no lid lag, anicteric sclera Mouth: no lip lesion, mucus membranes moist Cardiovascular: good distal perfusion in all 4 extremities. Lungs: breathing comfortably, no accessory muscle use Ext: no gross muscle atrophy, no edema, no contractures Neuro: No FND Psych: Alert and oriented Acute hypoxic respiratory failure NSTEMI status post CABG 05/07 Acute blood loss anemia Transaminitis Resolved: Hypomagnesemia Chronic conditions: hypertension, dyslipidemia, hypothyroidism Based on my assessment of this patient, this patient meets a moderate complexity level of care. Patient has an acute diagnosis of NSTEMI that poses a threat to life or bodily function. Acute hypoxic respiratory failure: Wean O2. NSTEMI: Status post CABG 05/07. ASA 325 mg PO QD. Lipitor 40 mg PO QD. Plavix 75 mg PO QD. Metoprolol 25 mg PO BID. Telemetry monitoring. Cardiology and CT surgery on board. Diabetes mellitus: POC glucose 121-194. Levimir 20 units QHS. Novolog 6 units TID. Accuchecks ACHS. Acute blood loss anemia: Expected result of surgery. Daily CBC. Transfuse if Hg < 7. Transaminitis: Mild elevation. Likley hepatic steotosis. Nonobstructive. Hepatitis panel negative. I have reviewed the following contact center consultant notes: Cardiothoracic surgery, Cardio, Pulm note. I have reviewed the results of the following tests: CBC, BMP, Mg I have ordered the following tests: I have discussed the care of this patient with the following independent historian: I have independently interpreted the following test below: I have discussed the management of this patient with the following physician: Objective - Vital Signs Vital signs: Vital Signs Temp 98 F 05/12/23 08:00 Pulse 84 05/12/23 12:14 Resp 19 05/12/23 08:00 BP 171/83 05/12/23 08:00 Pulse Ox 94 L 05/12/23 08:24 FiO2 50 05/07/23 18:00 Intake & Output 05/11/23 05/12/23 05/12/23 18:59 06:59 18:59 Intake Total 400 100 Output Total 2975 200 550 Balance -2575 -200 -450 Weight 90.3 kg Intake: Oral 400 100 Output: Urine 2975 200 550 Other: Voiding Method Toilet Toilet Toilet # Voids 2 ABP, PAP, CO, CI - Last Documented Arterial Blood Pressure 116/57 Pulmonary Artery Pressure 27/14 Cardiac Output 4.1 Cardiac Index 2.1 - Labs CBC & Chem 7: 05/12/23 09:11 05/12/23 09:11 Labs: Abnormal Lab Results - Last 24 Hours (Table) 05/11/23 05/11/23 05/12/23 Range/Units 16:13 20:36 05:10 RBC (3.80-5.40) m/uL Hgb (11.4-16.0) gm/dL Hct (34.0-46.0) % RDW (11.5-15.5) % Glucose (74-99) mg/dL POC Glucose (mg/dL) 121 H 188 H 127 H (70-110) mg/dL 05/12/23 05/12/23 05/12/23 Range/Units 09:11 09:11 11:10 RBC 3.68 L (3.80-5.40) m/uL Hgb 10.9 L (11.4-16.0) gm/dL Hct 33.2 L (34.0-46.0) % RDW 15.9 H (11.5-15.5) % Glucose 129 H (74-99) mg/dL POC Glucose (mg/dL) 136 H (70-110) mg/dL
--- NOTE | 2023-05-12 13:25 | P.DS ---
Providers Date of admission: 05/04/23 16:25 Expected date of discharge: 05/12/23 Attending physician: Dk Daniel MD Consults: 05/04/23 18:34 Consult Physician Routine Consulting Provider: Willis Mccormack Consult Reason/Comments: [facility] transfer cath Do you want consulting provider notified?: Yes Placement Type Exists?: Yes 05/05/23 07:26 Consult Physician Urgent Consulting Provider: Dk Daniel Consult Reason/Comments: open heart consult Do you want consulting provider notified?: Yes 05/05/23 10:57 Consult Physician Routine Consulting Provider: Chato Sullivan Consult Reason/Comments: Preoperative cardiac surgery clearance Do you want consulting provider notified?: Yes 05/05/23 15:39 Consult to Anesthesia Routine Consulting Provider: Anesthesia,Services Consult Reason/Comments: Cardiac Surgery Pre-Op 05/07/23 12:34 Consult Physician Routine Consulting Provider: Marie Cedeño Consult Reason/Comments: med mgmt Do you want consulting provider notified?: Already Contacted Primary care physician: Holden Fitzgerald [facility] Course: FINAL DIAGNOSIS: 1. Coronary artery disease, non-STEMI this admission 2. New-onset atrial fibrillation, currently sinus 3. History of hypertension 4. Hyperlipidemia, treated, cholesterol 126, LDL 44, triglycerides 218 5. Left internal carotid artery stenosis 50-69% 6. Type 2 diabetes mellitus, preoperative hemoglobin A1c 7.3% 7. Hypothyroid, TSH 1.83 8. Chronic ongoing tobacco dependence 9. Severe COPD, preoperative FEV1 38% of predicted 10. Asthma 11. Chronic back pain 12. Obesity 13. Family history of premature coronary artery disease 14. Postoperative acute blood loss anemia and thrombocytopenia, expected PRINCIPAL PROCEDURE: 1. Off-pump coronary artery bypass graft 3 with left internal thoracic artery in situ to the left anterior descending coronary artery, radial artery from the aorta to the ramus intermedius artery, reverse saphenous vein graft from the aorta to the posterior descending coronary artery 2. Endoscopic left radial and left greater saphenous vein harvest 3. Left atrial appendage ligation using a 35 mm AtriClip 4. Intraoperative graft flow measurements using the [employer] flowmeter system 5. Intraoperative transesophageal echocardiogram performed by anesthesia HISTORY OF PRESENT ILLNESS: This is a 62-year-old female [facility]. She presented to the emergency room at [facility] with complaints of chest pain with radiation to her neck and left arm. EKG at that time revealed rapid atrial fibrillation which patient denied history of prior and which resolved quickly. Troponins were elevated ruling her in for non-ST elevated myocardial infarction. She was recommended to undergo heart catheterization which was completed by Dr. Lyle and which demonstrated 40-50% stenosis to the mid LAD, 80-90% stenosis of a small diagonal branch, and 90% stenosis to the proximal PDA. For completeness she had a transthoracic echocardiogram demonstrating normal left ventricular size and function with EF 55%, mild mitral and tricuspid regurgitation. Due to findings on heart catheterization patient was transferred to [facility], consultation was placed to Dr. Daniel from cardiothoracic surgery. She was recommended to undergo urgent coronary artery bypass surgery. The usual perioperative course was discussed in detail with the patient and her family, all risks and benefits were explained, all questions were answered, and consent was obtained to proceed with surgery. The patient was kept inpatient due to the nature of her disease process. HOSPITAL COURSE: The patient was brought to the preoperative area 05/07/23, prepared in the usual fashion, and subsequently taken to the operating room where Dr. Daniel performed 3 vessel off-pump CABG. Upon completion of surgery the patient was transferred to the cardiovascular intensive care unit where she was recovered and monitored hemodynamically. She was extubated, all lines, tubes, and drips were discontinued when appropriate, and she was transferred to 3 S. cardiac stepdown unit for further monitoring and rehabilitation. Her oxygen was titrated down although she did continue to need 2 L nasal cannula oxygen, she continued to work with physical and occupational therapy, she was tolerating oral diet, her pain was controlled, and she was ready to be discharged to home with [facility] care on postoperative day #5. She received written and verbal instruction regarding her medications, activity restrictions, signs and symptoms requiring physician notification, and follow-up appointments, as well as teaching regarding home oxygen use. Patient Condition at Discharge: Stable Plan - Discharge Summary New Discharge Prescriptions: New Aspirin 325 mg PO DAILY #30 tab Potassium Bicarbonate/Cit AC [K-Lyte] 10 meq PO DAILY #7 tab Metoprolol Tartrate [Lopressor] 25 mg PO BID #60 tab Ibuprofen [Motrin] 400 mg PO Q6HR PRN tab PRN Reason: Pain Acetaminophen Tab [Tylenol] 650 mg PO Q4HR PRN tab PRN Reason: Fever And/ Or Pain Amiodarone [Cordarone] 400 mg PO BID #32 tab Furosemide [Lasix] 20 mg PO DAILY #7 tab amLODIPine [Norvasc] 2.5 mg PO DAILY@1200 #30 tab Clopidogrel [Plavix] 75 mg PO DAILY #30 tab Pantoprazole [Protonix] 40 mg PO AC-BRKFST #30 tab Sennosides-Docusate Sodium [Senokot-S] 2 each PO HS PRN tab PRN Reason: Constipation Continue Loratadine [Claritin] 10 mg PO DAILY Levothyroxine Sodium [Synthroid] 50 mcg PO DAILY Dapagliflozin/Metformin HCl [Xigduo Xr 10 mg-1,000 mg Tab] 1 tab PO DAILY Albuterol Inhaler [Ventolin Hfa Inhaler] 1 - 2 puff INHALATION RT-Q6H PRN PRN Reason: Shortness Of Breath Budesonide/Glycopyr/Formoterol [Breztri Aerosphere Inhaler] 1 puff INHALATION RT-BID PRN PRN Reason: Shortness Of Breath Semaglutide [Ozempic] 1 mg SQ DIRECTED Magnesium 250 mg PO DAILY Semaglutide [Ozempic] 0.5 mg SQ IBRAHIM Montelukast [Singulair] 10 mg PO DAILY Changed Atorvastatin [Lipitor] 40 mg PO DAILY #30 tab Discontinued Valsartan/Hydrochlorothiazide [Valsartan-Hctz 320-12.5 mg Tab] 1 tab PO DAILY Discharge Medication List Dapagliflozin/Metformin HCl [Xigduo Xr 10 mg-1,000 mg Tab] 1 tab PO DAILY 11/14/16 [History] Levothyroxine Sodium [Synthroid] 50 mcg PO DAILY 11/14/16 [History] Loratadine [Claritin] 10 mg PO DAILY 11/14/16 [History] Albuterol Inhaler [Ventolin Hfa Inhaler] 1 - 2 puff INHALATION RT-Q6H PRN 05/04/23 [History] Budesonide/Glycopyr/Formoterol [Breztri Aerosphere Inhaler] 1 puff INHALATION RT-BID PRN 05/04/23 [History] Magnesium 250 mg PO DAILY 05/04/23 [History] Montelukast [Singulair] 10 mg PO DAILY 05/04/23 [History] Semaglutide [Ozempic] 0.5 mg SQ IBRAHIM 05/04/23 [History] Semaglutide [Ozempic] 1 mg SQ DIRECTED 05/04/23 [History] Acetaminophen Tab [Tylenol] 650 mg PO Q4HR PRN tab 05/12/23 [Rx] Amiodarone [Cordarone] 400 mg PO BID #32 tab 05/12/23 [Rx] Aspirin 325 mg PO DAILY #30 tab 05/12/23 [Rx] Atorvastatin [Lipitor] 40 mg PO DAILY #30 tab 05/12/23 [Rx] Clopidogrel [Plavix] 75 mg PO DAILY #30 tab 05/12/23 [Rx] Furosemide [Lasix] 20 mg PO DAILY #7 tab 05/12/23 [Rx] Ibuprofen [Motrin] 400 mg PO Q6HR PRN tab 05/12/23 [Rx] Metoprolol Tartrate [Lopressor] 25 mg PO BID #60 tab 05/12/23 [Rx] Pantoprazole [Protonix] 40 mg PO AC-BRKFST #30 tab 05/12/23 [Rx] Potassium Bicarbonate/Cit AC [K-Lyte] 10 meq PO DAILY #7 tab 05/12/23 [Rx] Sennosides-Docusate Sodium [Senokot-S] 2 each PO HS PRN tab 05/12/23 [Rx] amLODIPine [Norvasc] 2.5 mg PO DAILY@1200 #30 tab 05/12/23 [Rx] Follow up Appointment(s)/Referral(s): Ankit Lyle MD [Medical Doctor] - 2 Weeks (Office will call with appointment) [facility] [NON-STAFF] - 4 Weeks (You will receive a phone call in approximately 4-6 weeks for evaluation for cardiac rehab) [facility] [[facility] - 1-2 Days Holden Fitzgerald MD [Primary Care Provider] - 05/26/23 11:15 am (Appt is with ZOHRA Balderrama) Link Yao NPC [Nurse Practitioner] - 05/18/23 2:30 pm (You will be seen in the surgeon's office behind the hospital in [facility], [address] Office phone number is ) Chato Sullivan DO [Doctor of Osteopathic Medicine] - 06/08/23 10:00 am Dk Daniel MD [STAFF PHYSICIAN] - 06/05/23 9:00 am Ambulatory/Diagnostic Orders: Complete Blood Count w/diff [LAB.AMB] Time Frame: 3 Days, Location: None Selected Comprehensive Metabolic Panel [LAB.AMB] Time Frame: 3 Days, Location: None Selected Activity/Diet/Wound Care/Special Instructions: DISCHARGE INSTRUCTIONS: 1. No driving for 4 weeks, or until physician gives their ok. 2. The patient should sleep in their own bed, no medical bed needed. 3. Stairs are not an issue. If the bedroom is upstairs, it is advised that the patient go up at night and down in the morning for the first week. Go slowly, using handrail and take 1 step at a time. 4. ADONAY hose are to be worn for 30 days post surgery or until physician discontinues. 5. Heart hugger is to be worn 100% of the time until physician discontinues.(except when showering) 6. No lifting, pushing, or pulling more than 10 pounds for 12 weeks. The physician will advise of any restriction changes. 7. The patient is expected to continue the prescribed walking program. 8. Continue pain control per as needed orders. 9. Continue with incentive spirometry and splinting/heart hugger until otherwise directed by the physician. 10. Must shower daily using liquid antibacterial soap 11. Routine sternal incision care. No powders, lotions, ointments on incisions. No dressings are necessary on incisions unless they are draining. Dermabond tape is to remain on sternal incision until surgeon follow-up. 12. Please call surgeon/[employer] DRIVER for temp greater than 101 F or purulent drainage from incisions. 13. You should weigh yourself daily, record and bring log with you to follow up appointments. 14. All prescriptions given by surgeon for 30 days. Refills need to be filled through vp communications/primary care physician. 15. A Red armband has been placed on the patient. It should be worn for 30 days post discharge from surgery and will be removed by the cardiac surgeons. If an ER visit is necessary, please make sure the number on the Red armband is called before going to ER. 16. You have been referred to and are expected to begin Cardiac Rehab in approximately 4-6 weeks. 17. Quitting smoking is the most important step you can take to improve your health. For additional information and assistance to quit smoking, please call the [place] tobacco quit line (9-313-EAEK-NOW/ ) or online: [email or web address] HOME HEALTH SERVICES TO PROVIDE: RN SKILLED HOME CARE SERVICES FOR POST-OP SURGICAL PATIENTS WITH THE FOLLOWING: Coronary Artery Bypass Surgery (CABG), Mitral Valve Replacement/Repair ( MVR), Aortic Valve Replacement/Repair (AVR) RN TO CONTINUE EDUCATION FROM ``ROAD TO A HEALTH HEART PATIENT EDUCATION MANUAL (GIVEN TO PATIENT IN THE HOSPITAL) MEDICATION RECONCILIATION WITH EDUCATION NEEDED ON FIRST HOME VISIT EMPHASIZE IMPORTANCE OF WEARING BREAST SUPPORT/HEART HUGGER ENCOURAGE USE OF INCENTIVE SPIROMETER 10 X EVERY HOUR WHILE AWAKE ENCOURAGE UTILIZATION OF LOWER EXTREMITY COMPRESSION STOCKINGS/ADONAY HOSE and ELEVATE LEGS ABOVE LEVEL OF HEART WHILE AT REST. ENCOURAGE AMBULATION 3-5x/day INCREASING TOLERATES, WHILE AVOIDING EXTREMES IN TEMPERATURE FREQUENCY: RN TO OPEN THE PATIENT WITHIN 24 HOURS OF DISCHARGE FROM THE HOSPITAL WITH TELEHEALTH INSTALLED AT [facility] [place], RN TO VISIT 2-3 X A WEEK FOR 4 WEEKS ESTABLISHED BY PATIENT NEEDS. LABORATORY: CBC, CMP TO BE DRAWN ON THE THIRD DAY HOME, (RAN STAT) FAX RESULTS TO [phone]. TELEHEALTH PARAMETERS: WEIGHT: NOTIFY MD OF WEIGHT GAIN OF 2 LBS IN 24 HOURS OR 5 LBS IN ONE WEEK HR: NOTIFY MD OF HR <55 BPM OR HR>100 BPM BP: NOTIFY MD IF BP <90/55 OR BP>140/100 O2 SAT: NOTIFY MD IF PO2<93% ON ROOM AIR SEND TELEHEALTH REPORT TO DRAWER IN [facility] AND CARDIOVASCULAR SURGEON THE FIRST WEEK OF CARE AND THEN BI-WEEKLY. PLEASE ADDITIONALLY COMMUNICATE ANY ABNORMALS AND NEW FINDINGS TO THE SURGEONS OFFICE. Discharge Disposition: HOME WITH HOME HEALTH SERVICES
[2023-05-12 14:03] VITALS: BP 121/67; PULSE 81; RESP 18
--- NOTE | 2023-05-14 09:54 | CDI ---
Documentation Clarification Form Date: 05/11/2023 02:49:00 PM From: Malissa Oliveros Phone: [phone] Admit Date: 05/04/2023 04:25:00 PM Patient Name: Angela Bender Visit Number: [id number] Discharge Date: 05/12/2023 03:03:00 PM ATTENTION: The Clinical Documentation Specialists (CDI) and [facility] Coding Staff appreciate your assistance in clarifying documentation. Please respond to the clarification below the line at the bottom and electronically sign. The CDI & [facility] Coding staff will review the response and follow-up if needed. Please note: Queries are made part of the Legal Health Record. If you have any questions, please contact the author of this message via ITS. Dr. Dk Daniel "Postoperative hypotension" is documented in the progress note on 05/11 and patient had Coronary artery bypass graft on 05/07. Additional clarification is requested regarding the relationship, if any, that exists between the diagnosis and the procedure. Post-Operative Diagnosis: 3v CAD with NSTEMI Procedure performed: Off pump coronary artery bypass grafting x 3 on 05/07 History/Risk Factors: "62-year-old female with PMH of diabetes mellitus, hypertension, dyslipidemia, hypothyroidism presented to [facility] for chest pain that started Thursday night around 12:30AM." - Per H&P on 05/05 Clinical Indicators: "Remains in sinus rhythm, hemodynamically stable on no inotropes or pressors. She was started on midodrine to keep her BP up enough to be able to give her beta daniel." - Per Progress Note on 05/10 BP/MAP: 05/08 05:15 - 117/75 05/09 08:30 - 78/62 MAP 68 05/09 12:00 - 97/59 MAP 72 05/09 15:00 - 92/56 MAP 71 05/09 18:00 - 110/61 MAP 75 05/10 00:00 - 97/61 MAP 75 Treatment: Per MAR: Midodrine started 05/10 10mg PO TID What relationship, if any, exists between the diagnosis of [insert dx] and the procedure: [ ] Hypotension is a complication of surgical procedure [ ] Hypotension is an expected outcome of the surgical procedure [ ] Hypotension is related to patients co-morbid condition(s) of acute blood loss & not a complication of the procedure [ ] Hypotension has been ruled out [ ] Other please specify ____ [ ] Unable to determine MTDD
== END 2023-05-12 15:03 | disposition home health service (06) | DRG 235 ==
LOC: 3SCARD 16:25 → 2SICU 05-07 06:48 → 3SCARD 05-11 14:00
PROVIDERS: ADMIT Thoracic Surgery (Cardiothoracic Vascular Surgery); ATTEND Thoracic Surgery (Cardiothoracic Vascular Surgery)
PROC: 02L70CK Occlusion of Left Atrial Appendage with Extraluminal Device, Open Approach (ICD-10-PCS; principal; 2023-05-07 08:00)
PROC: 03BC4ZZ Excision of Left Radial Artery, Percutaneous Endoscopic Approach (ICD-10-PCS; principal; 2023-05-07 08:00)
PROC: 02100A9 Bypass Coronary Artery, One Artery from Left Internal Mammary with Autologous Arterial Tissue, Open Approach (ICD-10-PCS; principal; 2023-05-07 08:00)
PROC: 02100AW Bypass Coronary Artery, One Artery from Aorta with Autologous Arterial Tissue, Open Approach (ICD-10-PCS; principal; 2023-05-07 08:00)
PROC: 06BQ4ZZ Excision of Left Saphenous Vein, Percutaneous Endoscopic Approach (ICD-10-PCS; principal; 2023-05-07 08:00)
PROC: 021009W Bypass Coronary Artery, One Artery from Aorta with Autologous Venous Tissue, Open Approach (ICD-10-PCS; principal; 2023-05-07 08:00)
PROC: B24BZZ4 Ultrasonography of Heart with Aorta, Transesophageal (ICD-10-PCS; principal; 2023-05-07 08:00)
PROC: 3E033XZ Introduction of Vasopressor into Peripheral Vein, Percutaneous Approach (ICD-10-PCS; 2023-05-09)
DX: I21.4 Non-ST elevation (NSTEMI) myocardial infarction (principal); J96.01 Acute respiratory failure with hypoxia; D62 Acute posthemorrhagic anemia; I47.20 Ventricular tachycardia, unspecified; J90 Pleural effusion, not elsewhere classified; J98.11 Atelectasis; R74.01 Elevation of levels of liver transaminase levels; E83.42 Hypomagnesemia; E83.51 Hypocalcemia; D69.59 Other secondary thrombocytopenia; E11.9 Type 2 diabetes mellitus without complications; E78.5 Hyperlipidemia, unspecified; E03.9 Hypothyroidism, unspecified; K76.0 Fatty (change of) liver, not elsewhere classified; I65.22 Occlusion and stenosis of left carotid artery; J44.9 Chronic obstructive pulmonary disease, unspecified; E66.9 Obesity, unspecified; I25.110 Atherosclerotic heart disease of native coronary artery with unstable angina pectoris; I11.9 Hypertensive heart disease without heart failure; I48.0 Paroxysmal atrial fibrillation; Z68.35 Body mass index [BMI] 35.0-35.9, adult; F17.210 Nicotine dependence, cigarettes, uncomplicated; E66.01 Morbid (severe) obesity due to excess calories; F41.9 Anxiety disorder, unspecified; G89.29 Other chronic pain; Z79.899 Other long term (current) drug therapy; Z79.890 Hormone replacement therapy; Z79.82 Long term (current) use of aspirin; Z79.02 Long term (current) use of antithrombotics/antiplatelets; Z71.6 Tobacco abuse counseling
CPT/HCPCS: 71045; 71046; 80048; 80053; 80061; 80074; 81003; 82330; 82805; 83735; 84443; 85025; 85027; 85610; 85730; 86850; 86900; 86901; 86920; 87070; 93880; 93922; 93970; 94002; 94150; 94640; 94760

== ENCOUNTER → 2024-07-14 | Outpatient (CLI) | payer MEDICARE ==
--- NOTE | 2024-07-14 08:35 | CTL ---
EXAMINATION TYPE: CT Low Dose Lung DATE OF EXAM: 07/14/2024 8:24 AM COMPARISON: 05/04/2023. CLINICAL INDICATION: Female, 63 years old with history of F17.210 nicotine dependence; personal tobac co use, history of tobacco use. TECHNIQUE: Multiple axial non-contrast scans were obtained from approximately the lung apices through the upper abdomen. Coronal and sagittal reformatted images were obtained. Low dose technique was uti lized. MIP were created on a separate workstation and submitted for review. CT DLP: 81 mGycm, Automated exposure control for dose reduction was used. CT Contrast: Contrast used: None Oral contrast used: None FINDINGS: Lack of intravenous contrast and low dose technique limits the evaluation of the vascular and soft ti ssue structures. LUNGS: No evidence of pulmonary fibrosis. No evidence of focal consolidation, pneumothorax or pleural effusion. Centrilobular emphysema changes. Few scattered airspace opacities with a nodular appearance are seen posteriorly in the right upper marely ng Nodules: RUL: Stable 5 mm series 9 image 14., Was 4 mm series 9 image 21 RML: None. RLL: Intrafissural lymph node series 29. ALISSA: None. LLL: None. AIRWAY: Patent and unremarkable. HEART: Size within normal limits.Atherosclerosis of the arterial vasculature. Valvular calcifications . Mitral valve annular cusp patient's are present. Left atrial appendage occlusion device present. MEDIASTINUM: No gross evidence of adenopathy. VASCULATURE: No aortic aneurysm. MUSCULOSKELETAL: Mild to moderate disc degeneration changes are present throughout the thoracolumbar spine., sternotomy wires are present. SOFT TISSUES/LYMPH NODES: Unremarkable. LOWER NECK: No significant findings. UPPER ABDOMEN: No significant findings. IMPRESSION: 1. No clinically significant pulmonary nodules. 2. Mild emphysema. 3. Severe mitral valve annular calcifications. CT LUNG RAD AND CT CHEST RECOMMENDATION: Lung-Rad 2 Benign Appearance or Behavior: Continue annual sc reening with LDCT in 12 months. S Modifier (other clinically significant findings): None Recommend smoking cessation (if current smoker), or continuation of smoking cessation (if prior smoke r). Annual screening for lung cancer with low-dose computed tomography is recommended in adults ages 55 to 77 years who have a 30 pack-year smoking history and currently smoke or have quit within the pa st 15 years. Screening should be discontinued once a person has not smoked for 15 years or develops a health problem that substantially limits life expectancy or the ability or willingness to have curat latesha lung surgery. Lung rads 2021 [email or web address] [facility], , 07/14/2024 8:33 AM
== END | disposition home or self-care (01) ==
LOC: RADCTMAIN 07:56
PROVIDERS: ATTEND Family Medicine
DX: Z12.2 Encounter for screening for malignant neoplasm of respiratory organs (principal); F17.210 Nicotine dependence, cigarettes, uncomplicated; J43.9 Emphysema, unspecified; I34.81 Nonrheumatic mitral (valve) annulus calcification
CPT/HCPCS: 71271